=== PATIENT | female | born 1985 | race Caucasian/White ===

== ENCOUNTER 2019-09-04 15:39 | Inpatient (IN) | payer BC ==
[2019-09-04] MEDS ORDERED: Sodium Chloride 0.9% 10 ML Syringe FLUSH PRN (15:40)
[2019-09-04] MEDS ORDERED: Sodium Chloride 0.9% 2.5 ML Syringe FLUSH PRN (15:40)
[2019-09-04] MEDS ORDERED: Ondansetron 4 MG/2 ML SDV IVPUSH ONE (15:53)
[2019-09-04] MEDS ORDERED: Morphine 4 MG/ML Syringe IVPUSH ONE (15:53)
--- NOTE | 2019-09-04 15:53 | EDM.PDOC ---
ED HPI GENERAL MEDICAL PROBLEM - General Chief Complaint: Chest Pain Stated Complaint: CHEST AND BACK PAIN Time Seen by Provider: 09/04/19 15:50 Source of Information: Reports: Patient History Limitations: Reports: No Limitations - History of Present Illness INITIAL COMMENTS - FREE TEXT/NARRATIVE: HISTORY AND PHYSICAL: History of present illness: Patient is a 34-year-old female presents to the ED with complaint of abdmominal pain. She states she woke up this morning with a stomach ache. She states she tried eating but throughout the day the pain has gotten worse and now radiating to her back and her chest. She states she is has shortness of breath due to the pain in her left upper abdomen. She states she has been nauseous but denies vomiting or diarrhea. She does drink 6 white claws daily. She reports surgical history including gastric bypass,cholecystectomy, and abdominoplasty. Review of systems: As per history of present illness and below otherwise all systems reviewed and negative. Past medical history: As per history of present illness and as reviewed below otherwise noncontributory. Surgical history: As per history of present illness and as reviewed below otherwise noncontributory. Social history: No reported history of drug or alcohol abuse. Family history: As per history of present illness and as reviewed below otherwise noncontributory. Physical exam: General: Patient sitting comfortably in no acute distress and nontoxic appearing HEENT: Atraumatic, normocephalic, pupils reactive, negative for conjunctival pallor or scleral icterus, mucous membranes moist, throat clear, neck supple, nontender, trachea midline. No meningeal signs. Lungs: Clear to auscultation, breath sounds equal bilaterally, chest nontender. Heart: S1S2, regular, negative for clicks, rubs, or overt murmur. Abdomen: RUQ tenderness to palpation. Soft, nondistended. Negative for masses or hepatosplenomegaly. Negative for costovertebral tenderness. No rigidity, rebound, guarding. Pelvis: Stable nontender. Genitourinary: Deferred. Rectal: Deferred. Extremities: Atraumatic, negative for cords or calf pain. Neurovascular unremarkable. Neuro: Awake, alert, oriented. Cranial nerves II through XII unremarkable. Cerebellum unremarkable. Motor and sensory unremarkable throughout. Exam nonfocal. Notes: Diagnostics: CBC, CMP, troponin, lipase, EKG, chest x-ray, CT abdomen pelvis with contrast Therapeutics: 1L NS IV 4mg Morphine IV 4mg Zofran IV Prescriptions: Impression: Pancreatitis Plan: Discussed with Dr. Fuentes, patient admitted for observation for NPO, IV fluids for pancreatitis Definitive disposition and diagnosis as appropriate pending reevaluation and review of above. chest and abdomen Pain Score (Numeric/FACES): 9 - Related Data Allergies Allergy/AdvReac Type Severity Reaction Status Date / Time No Known Allergies Allergy Verified 09/04/19 15:44 Home Meds: Home Meds . [No Known Home Meds] 09/04/19 [History] ED ROS GENERAL - Review of Systems Review Of Systems: Comprehensive ROS is negative, except as noted in HPI. ED EXAM, GENERAL - Physical Exam Exam: See Below (see dictation) Course - Vital Signs Last Recorded V/S: Last Vital Signs Temp 97.5 F 09/04/19 15:44 Pulse 88 09/04/19 17:29 Resp 16 09/04/19 17:29 BP 147/89 H 09/04/19 17:29 Pulse Ox 95 09/04/19 17:29 - Orders/Labs/Meds Orders: Active Orders 24 hr Category Date Time Status Admission Status [Patient Status] [ADT] Stat ADT 09/04/19 18:01 Ordered Cardiac Monitoring [RC] . DIRECTED Care 09/04/19 15:40 Active EKG Documentation Completion [RC] STAT Care 09/04/19 15:40 Active Pulse Oximetry [RC] ASDIRECTED Care 09/04/19 15:40 Active Sodium Chloride 0.9% [Normal Saline] 1,000 ml Med 09/04/19 18:02 Ordered IV STAT Sodium Chloride 0.9% [Saline Flush] Med 09/04/19 15:40 Active 10 ml FLUSH ASDIRECTED PRN Sodium Chloride 0.9% [Saline Flush] Med 09/04/19 15:40 Active 2.5 ml FLUSH ASDIRECTED PRN Saline Lock Insert [OM.PC] Stat Oth 09/04/19 15:40 Ordered Medication Orders Sodium Chloride (Normal Saline) 1,000 mls @ 999 mls/hr IV STAT ONE Stop: 09/04/19 19:02 Last Admin: 09/04/19 18:18 Dose: 999 mls/hr Sodium Chloride (Saline Flush) 10 ml FLUSH ASDIRECTED PRN PRN Reason: Keep Vein Open Last Admin: 09/04/19 16:06 Dose: 10 ml Sodium Chloride (Saline Flush) 2.5 ml FLUSH ASDIRECTED PRN PRN Reason: Keep Vein Open Last Admin: 09/04/19 16:06 Dose: 2.5 ml Labs: Laboratory Tests 09/04/19 09/04/19 09/04/19 Range/Units 15:40 15:40 15:40 WBC 11.62 H (4.0-11.0) K/uL RBC 4.41 (4.30-5.90) M/uL Hgb 14.2 (12.0-16.0) g/dL Hct 42.4 (36.0-46.0) % MCV 96.1 (80.0-98.0) fL MCH 32.2 H (27.0-32.0) pg MCHC 33.5 (31.0-37.0) g/dL RDW Std Deviation 49.4 (28.0-62.0) fl RDW Coeff of Yousuf 14 (11.0-15.0) % Plt Count 187 (150-400) K/uL MPV 10.20 (7.40-12.00) fL Neut % (Auto) 84.4 H (48.0-80.0) % Lymph % (Auto) 8.4 L (16.0-40.0) % [place] % (Auto) 6.9 (0.0-15.0) % Eos % (Auto) 0.1 (0.0-7.0) % Baso % (Auto) 0.2 (0.0-1.5) % Neut # (Auto) 9.8 H (1.4-5.7) K/uL Lymph # (Auto) 1.0 (0.6-2.4) K/uL [place] # (Auto) 0.8 (0.0-0.8) K/uL Eos # (Auto) 0.0 (0.0-0.7) K/uL Baso # (Auto) 0.0 (0.0-0.1) K/uL Nucleated RBC % 0.0 /100WBC Nucleated RBCs # 0 K/uL INR 1.03 Sodium 139 (136-145) mmol/L Potassium 3.6 (3.5-5.1) mmol/L Chloride 99 (98-107) mmol/L Carbon Dioxide 22.8 (21.0-32.0) mmol/L BUN 6 L (7.0-18.0) mg/dL Creatinine 0.9 (0.6-1.0) mg/dL Est Cr Clr Drug Dosing 90.31 mL/min Estimated GFR (MDRD) > 60.0 ml/min Glucose 106 (74-106) mg/dL Calcium 9.1 (8.5-10.1) mg/dL Total Bilirubin 1.1 H (0.2-1.0) mg/dL AST 131 H (15-37) IU/L ALT 89 H (14-63) IU/L Alkaline Phosphatase 87 (46-116) U/L Troponin I < 0.050 (0.000-0.056) ng/mL Total Protein 7.9 (6.4-8.2) g/dL Albumin 4.2 (3.4-5.0) g/dL Globulin 3.7 (2.6-4.0) g/dL Albumin/Globulin Ratio 1.1 (0.9-1.6) Lipase (73-393) U/L 09/04/19 Range/Units 15:40 WBC (4.0-11.0) K/uL RBC (4.30-5.90) M/uL Hgb (12.0-16.0) g/dL Hct (36.0-46.0) % MCV (80.0-98.0) fL MCH (27.0-32.0) pg MCHC (31.0-37.0) g/dL RDW Std Deviation (28.0-62.0) fl RDW Coeff of Yousuf (11.0-15.0) % Plt Count (150-400) K/uL MPV (7.40-12.00) fL Neut % (Auto) (48.0-80.0) % Lymph % (Auto) (16.0-40.0) % [place] % (Auto) (0.0-15.0) % Eos % (Auto) (0.0-7.0) % Baso % (Auto) (0.0-1.5) % Neut # (Auto) (1.4-5.7) K/uL Lymph # (Auto) (0.6-2.4) K/uL [place] # (Auto) (0.0-0.8) K/uL Eos # (Auto) (0.0-0.7) K/uL Baso # (Auto) (0.0-0.1) K/uL Nucleated RBC % /100WBC Nucleated RBCs # K/uL INR Sodium (136-145) mmol/L Potassium (3.5-5.1) mmol/L Chloride (98-107) mmol/L Carbon Dioxide (21.0-32.0) mmol/L BUN (7.0-18.0) mg/dL Creatinine (0.6-1.0) mg/dL Est Cr Clr Drug Dosing mL/min Estimated GFR (MDRD) ml/min Glucose (74-106) mg/dL Calcium (8.5-10.1) mg/dL Total Bilirubin (0.2-1.0) mg/dL AST (15-37) IU/L ALT (14-63) IU/L Alkaline Phosphatase (46-116) U/L Troponin I (0.000-0.056) ng/mL Total Protein (6.4-8.2) g/dL Albumin (3.4-5.0) g/dL Globulin (2.6-4.0) g/dL Albumin/Globulin Ratio (0.9-1.6) Lipase 8781 H (73-393) U/L Meds: Medications Generic Name Dose Route Start Last Admin Trade Name Freq PRN Reason Stop Dose Admin Sodium Chloride 1,000 mls @ 999 mls/hr 09/04/19 18:02 09/04/19 18:18 Normal Saline IV 09/04/19 19:02 999 mls/hr STAT ONE Administration Sodium Chloride 10 ml 09/04/19 15:40 09/04/19 16:06 Saline Flush FLUSH 10 ml ASDIRECTED PRN Administration Keep Vein Open Sodium Chloride 2.5 ml 09/04/19 15:40 09/04/19 16:06 Saline Flush FLUSH 2.5 ml ASDIRECTED PRN Administration Keep Vein Open Discontinued Medications Generic Name Dose Route Start Last Admin Trade Name Freq PRN Reason Stop Dose Admin Sodium Chloride 1,000 mls @ 999 mls/hr 09/04/19 16:04 09/04/19 16:05 Normal Saline IV 09/04/19 17:04 999 mls/hr .Bolus ONE Administration Iopamidol 100 ml 09/04/19 17:01 09/04/19 17:02 Isovue-370 (76%) IVPUSH 09/04/19 17:02 100 ml ONETIME STA Administration Morphine Sulfate 4 mg 09/04/19 15:53 09/04/19 16:00 Morphine IVPUSH 09/04/19 15:54 4 mg ONETIME ONE Administration Morphine Sulfate 2 mg 09/04/19 17:23 09/04/19 17:28 Morphine IVPUSH 09/04/19 17:24 2 mg ONETIME ONE Administration Ondansetron HCl 4 mg 09/04/19 15:53 09/04/19 16:00 Zofran IVPUSH 09/04/19 15:54 4 mg ONETIME ONE Administration Departure - Departure Time of Disposition: 18:00 Disposition: Refer to Observation Condition: Good Clinical Impression: Pancreatitis Referrals: PCP,None [Primary Care Provider] - Forms: ED Department Discharge Sepsis Event Note - Focused Exam Vital Signs: Vital Signs Temp Pulse Resp BP Pulse Ox 09/04/19 17:29 88 16 147/89 H 95 09/04/19 15:44 97.5 F 111 H 20 147/89 H 100 Date Exam was Performed: 09/04/19 Time Exam was Performed: 18:21 - My Orders Last 24 Hours: My Active Orders 09/04/19 15:40 Cardiac Monitoring [RC] . DIRECTED EKG Documentation Completion [RC] STAT Pulse Oximetry [RC] ASDIRECTED Sodium Chloride 0.9% [Saline Flush] 10 ml FLUSH ASDIRECTED PRN Sodium Chloride 0.9% [Saline Flush] 2.5 ml FLUSH ASDIRECTED PRN Saline Lock Insert [OM.PC] Stat 09/04/19 18:01 Admission Status [Patient Status] [ADT] Stat 09/04/19 18:02 Sodium Chloride 0.9% [Normal Saline] 1,000 ml IV STAT - Assessment/Plan Last 24 Hours: My Active Orders 09/04/19 15:40 Cardiac Monitoring [RC] . DIRECTED EKG Documentation Completion [RC] STAT Pulse Oximetry [RC] ASDIRECTED Sodium Chloride 0.9% [Saline Flush] 10 ml FLUSH ASDIRECTED PRN Sodium Chloride 0.9% [Saline Flush] 2.5 ml FLUSH ASDIRECTED PRN Saline Lock Insert [OM.PC] Stat 09/04/19 18:01 Admission Status [Patient Status] [ADT] Stat 09/04/19 18:02 Sodium Chloride 0.9% [Normal Saline] 1,000 ml IV STAT
[2019-09-04] MEDS ORDERED: Sodium Chloride 0.9% 1,000 ML IV ONE ×2 (16:04→18:02)
[2019-09-04 16:30] LABS: BLOOD UREA NITROGEN,BUN 6 mg/dL (7.0-18.0); CARBON DIOXIDE,CO2 22.8 mmol/L (21.0-32.0); CHLORIDE,CL 99 mmol/L (98-107); GLUCOSE RANDOM 106 mg/dL (74-106); POTASSIUM,K 3.6 mmol/L (3.5-5.1); SODIUM,NA 139 mmol/L (136-145)
--- NOTE | 2019-09-04 16:32 | CR ---
Indication: Chest pain. Technique: A single AP portable view of the chest was obtained. Comparison: None Findings: The heart is normal in size. The lungs are clear. No infiltrate, pleural effusion, or pneumothorax is identified. Impression: No acute cardiopulmonary process Dictated by Shanda Workman MD @ Sep 04 2019 4:29PM Signed by Dr. Shanda Workman @ Sep 04 2019 4:29PM
[2019-09-04] MEDS ORDERED: Iopamidol 755 Mg/ML 100 ML Bottle IVPUSH STA (17:01)
[2019-09-04] MEDS ORDERED: Morphine 2 MG/ML Syringe IVPUSH ONE (17:23)
--- NOTE | 2019-09-04 17:41 | CT ---
INDICATION: Chest and abdomen pain. TECHNIQUE: CT abdomen and pelvis acquired with 100 cc Isovue 370 IV contrast. COMPARISON: None. FINDINGS: Lower chest: Unremarkable. Liver: Severe fatty infiltration present. No focal lesion. Gallbladder and bile ducts: Post cholecystectomy. No biliary dilatation. Pancreas: Unremarkable. No mass or inflammation. Spleen: Unremarkable. Normal in size. No masses. Adrenal glands: Unremarkable. No nodules. Kidneys: Single small nonobstructive stone in the right kidney. No masses and no hydronephrosis. Otherwise unremarkable kidneys. GI tract: Postoperative changes are present from recent gastric bypass surgery. GI tract is otherwise within normal limits in caliber and appearance. No sign of obstruction. Normal appendix. Vasculature: Unremarkable. Mesenteric arteries are patent. Lymph nodes: No lymphadenopathy. Omentum/Peritoneum/Abdominal Wall: Mild ascites and mesenteric edema predominantly in the upper quadrants. No defined fluid collection to suggest abscess or hematoma. No free air. Pelvis: Unremarkable. Bones: Unremarkable for age. IMPRESSION: 1. Edema and free fluid is present, predominantly in the upper quadrants. No other postoperative complication evident. Specifically no sign of abscess, hematoma, or free air. 2. GI tract is normal in caliber. 3. Severe hepatic steatosis. 4. No other findings to explain pain. Please note that all CT scans at this facility use dose modulation, iterative reconstruction, and/or weight-based dosing when appropriate to reduce radiation dose to as low as reasonably achievable. Dictated by Dale Dinero MD @ Sep 04 2019 5:28PM Signed by Dr. Dale Dinero @ Sep 04 2019 5:39PM
[2019-09-04] MEDS ORDERED: Morphine 2 MG/ML Syringe IVPUSH PRN (18:32)
[2019-09-04] MEDS ORDERED: Sodium Chloride 0.9% 500 ML IV ONE (18:39)
[2019-09-04] MEDS ORDERED: HYDROmorphone 1 MG/ML Syringe IVPUSH ONE (18:45)
[2019-09-04] MEDS ORDERED: Sodium Chloride 0.9% 1,000 ML IV SCH (18:45)
--- NOTE | 2019-09-04 18:52 | PCM.HP.2 ---
H&P History of Present Illness - General Date of Service: 09/04/19 Admit Problem/Dx: Admission Diagnosis/Problem Admission Diagnosis/Problem Pancreatitis Source of Information: Patient History Limitations: Reports: No Limitations - History of Present Illness Initial Comments - Free Text/Narative: 34-year-old female presents with abdominal pain and nausea since this morning. She reports a PMH of PTSD, cholecystectomy and gastric bypass. The pain is located in the epigastric region of her abdomen, described as being burning in nature and aggravated by eating. She reports it occasionally radiates to her back and chest. She has also had nausea but not vomiting. She reports drinking 6 -12 white claws daily and has been doing this for approximately one year. Denies fevers, chills, blurry vision, sore throat, shortness of breath, chest pain, diarrhea, blood in stool or blood in urine, numbness or tingling in extremities. Smokes 2-3 cigarettes per day. Denies illicit drug use. In the ER, WBC count 11.6, AST 131, ALT 89 and lipase 8781. CXR was negative. CT abdomen showed edema and free fluid in upper quadrants. Patient received IV NS 2L bolus and morphine for pain. chest and abdomen Pain Score (Numeric/FACES): 9 - Related Data Allergies/Adverse Reactions: Allergies Allergy/AdvReac Type Severity Reaction Status Date / Time No Known Allergies Allergy Verified 09/04/19 15:44 Home Medications: Home Meds . [No Known Home Meds] 09/04/19 [History] Past Medical History - Infectious Disease History Infectious Disease History: Reports: None - Past Surgical History GI Surgical History: Reports: Other (See Below) Other GI Surgeries/Procedures: Gastric bipass Social & Family History - Family History Family Medical History: Noncontributory - Tobacco Use Smoking Status *Q: Current Every Day Smoker Years of Tobacco use: 10 Packs/Tins Daily: 0.1 - Caffeine Use Caffeine Use: Reports: Coffee - Recreational Drug Use Recreational Drug Use: No H&P Review of Systems - Review of Systems: Review Of Systems: Comprehensive ROS is negative, except as noted in HPI. Exam - Exam Exam: See Below - Vital Signs Vital Signs: Last Vital Signs Temp 97.5 F 09/04/19 15:44 Pulse 88 09/04/19 17:29 Resp 16 09/04/19 17:29 BP 147/89 H 09/04/19 17:29 Pulse Ox 95 09/04/19 17:29 Weight: 175 lb - Exam General: Alert, Oriented, Cooperative, Mild Distress HEENT: Conjunctiva Clear, EOMI, Hearing Intact, Mucosa Moist & [place], Posterior Pharynx Clear Neck: Supple, Trachea Midline Lungs: Clear to Auscultation, Normal Respiratory Effort Cardiovascular: Regular Rate, Regular Rhythm GI/Abdominal Exam: Normal Bowel Sounds, Soft, No Distention, Other (epigastric ttp. No CVA tenderness bilatreally. No flank tenderness bilaterally.) Extremities: Normal Inspection, No Pedal Edema Peripheral Pulses: 2+: Radial (L), Radial (R) Skin: Warm, Dry, Intact Neurological: Cranial Nerves Intact, Strength Equal Bilateral, Normal Speech, Normal Tone Neuro Extensive - Mental Status: Alert, Oriented x3, Normal Mood/Affect - Patient Data Lab Results Last 24 hrs: Laboratory Results - last 24 hr 09/04/19 09/04/19 09/04/19 Range/Units 15:40 15:40 15:40 WBC 11.62 H (4.0-11.0) K/uL RBC 4.41 (4.30-5.90) M/uL Hgb 14.2 (12.0-16.0) g/dL Hct 42.4 (36.0-46.0) % MCV 96.1 (80.0-98.0) fL MCH 32.2 H (27.0-32.0) pg MCHC 33.5 (31.0-37.0) g/dL RDW Std Deviation 49.4 (28.0-62.0) fl RDW Coeff of Yousuf 14 (11.0-15.0) % Plt Count 187 (150-400) K/uL MPV 10.20 (7.40-12.00) fL Neut % (Auto) 84.4 H (48.0-80.0) % Lymph % (Auto) 8.4 L (16.0-40.0) % [place] % (Auto) 6.9 (0.0-15.0) % Eos % (Auto) 0.1 (0.0-7.0) % Baso % (Auto) 0.2 (0.0-1.5) % Neut # (Auto) 9.8 H (1.4-5.7) K/uL Lymph # (Auto) 1.0 (0.6-2.4) K/uL [place] # (Auto) 0.8 (0.0-0.8) K/uL Eos # (Auto) 0.0 (0.0-0.7) K/uL Baso # (Auto) 0.0 (0.0-0.1) K/uL Nucleated RBC % 0.0 /100WBC Nucleated RBCs # 0 K/uL INR 1.03 Sodium 139 (136-145) mmol/L Potassium 3.6 (3.5-5.1) mmol/L Chloride 99 (98-107) mmol/L Carbon Dioxide 22.8 (21.0-32.0) mmol/L BUN 6 L (7.0-18.0) mg/dL Creatinine 0.9 (0.6-1.0) mg/dL Est Cr Clr Drug Dosing 90.31 mL/min Estimated GFR (MDRD) > 60.0 ml/min Glucose 106 (74-106) mg/dL Calcium 9.1 (8.5-10.1) mg/dL Total Bilirubin 1.1 H (0.2-1.0) mg/dL AST 131 H (15-37) IU/L ALT 89 H (14-63) IU/L Alkaline Phosphatase 87 (46-116) U/L Troponin I < 0.050 (0.000-0.056) ng/mL Total Protein 7.9 (6.4-8.2) g/dL Albumin 4.2 (3.4-5.0) g/dL Globulin 3.7 (2.6-4.0) g/dL Albumin/Globulin Ratio 1.1 (0.9-1.6) Lipase (73-393) U/L 09/04/19 Range/Units 15:40 WBC (4.0-11.0) K/uL RBC (4.30-5.90) M/uL Hgb (12.0-16.0) g/dL Hct (36.0-46.0) % MCV (80.0-98.0) fL MCH (27.0-32.0) pg MCHC (31.0-37.0) g/dL RDW Std Deviation (28.0-62.0) fl RDW Coeff of Yousuf (11.0-15.0) % Plt Count (150-400) K/uL MPV (7.40-12.00) fL Neut % (Auto) (48.0-80.0) % Lymph % (Auto) (16.0-40.0) % [place] % (Auto) (0.0-15.0) % Eos % (Auto) (0.0-7.0) % Baso % (Auto) (0.0-1.5) % Neut # (Auto) (1.4-5.7) K/uL Lymph # (Auto) (0.6-2.4) K/uL [place] # (Auto) (0.0-0.8) K/uL Eos # (Auto) (0.0-0.7) K/uL Baso # (Auto) (0.0-0.1) K/uL Nucleated RBC % /100WBC Nucleated RBCs # K/uL INR Sodium (136-145) mmol/L Potassium (3.5-5.1) mmol/L Chloride (98-107) mmol/L Carbon Dioxide (21.0-32.0) mmol/L BUN (7.0-18.0) mg/dL Creatinine (0.6-1.0) mg/dL Est Cr Clr Drug Dosing mL/min Estimated GFR (MDRD) ml/min Glucose (74-106) mg/dL Calcium (8.5-10.1) mg/dL Total Bilirubin (0.2-1.0) mg/dL AST (15-37) IU/L ALT (14-63) IU/L Alkaline Phosphatase (46-116) U/L Troponin I (0.000-0.056) ng/mL Total Protein (6.4-8.2) g/dL Albumin (3.4-5.0) g/dL Globulin (2.6-4.0) g/dL Albumin/Globulin Ratio (0.9-1.6) Lipase 8781 H (73-393) U/L Result Diagrams: 09/04/19 15:40 09/04/19 15:40 Sepsis Event Note - Evaluation Sepsis Screening Result: No Definite Risk - Focused Exam Vital Signs: Vital Signs Temp Pulse Resp BP Pulse Ox 09/04/19 17:29 88 16 147/89 H 95 09/04/19 15:44 97.5 F 111 H 20 147/89 H 100 Date Exam was Performed: 09/04/19 Time Exam was Performed: 19:06 Problem List Initiated/Reviewed/Updated: Yes Orders Last 24hrs: Active Orders 24 hr Category Date Time Status Admission Status [Patient Status] [ADT] Stat ADT 09/04/19 18:01 Active CIWAA Assessment [RC] Q4H Care 09/04/19 18:41 Active Cardiac Monitoring [RC] . DIRECTED Care 09/04/19 15:40 Active EKG Documentation Completion [RC] STAT Care 09/04/19 15:40 Active Oxygen Therapy [RC] PRN Care 09/04/19 18:32 Active Pulse Oximetry [RC] ASDIRECTED Care 09/04/19 15:40 Active Up ad Madhuri [RC] ASDIRECTED Care 09/04/19 18:32 Active VTE/DVT Education [RC] PER UNIT ROUTINE Care 09/04/19 18:32 Active Vital Signs [RC] Q4H Care 09/04/19 18:32 Active Nothing per Oral Now Diet [DIET] Diet 09/04/19 Dinner Active CBC WITH AUTO DIFF [HEME] AM Lab 09/05/19 05:11 Ordered COMPREHENSIVE METABOLIC PN,CMP [CHEM] AM Lab 09/05/19 05:11 Ordered LACTIC ACID,WHOLE BLOOD [BG] Routine Lab 09/04/19 18:40 Ordered UA RFX WINNIE AND CULT IF INDIC [URIN] Stat Lab 09/04/19 18:34 Ordered Enoxaparin [Lovenox] Med 09/04/19 21:00 Active 40 mg SUBCUT Q24H LORazepam [Ativan] Med 09/04/19 18:41 Active See Protocol PO Q4H PRN Morphine Med 09/04/19 18:32 Active 2 mg IVPUSH Q2H PRN Sodium Chloride 0.9% [Normal Saline] 1,000 ml Med 09/04/19 18:02 Active IV STAT Sodium Chloride 0.9% [Normal Saline] 1,000 ml Med 09/04/19 18:45 Active IV STAT Sodium Chloride 0.9% [Normal Saline] 500 ml Med 09/04/19 18:39 Active IV STAT Sodium Chloride 0.9% [Saline Flush] Med 09/04/19 15:40 Active 10 ml FLUSH ASDIRECTED PRN Sodium Chloride 0.9% [Saline Flush] Med 09/04/19 15:40 Active 2.5 ml FLUSH ASDIRECTED PRN Saline Lock Insert [OM.PC] Stat Oth 09/04/19 15:40 Ordered Resuscitation Status Routine Resus Stat 09/04/19 18:32 Ordered Medication Orders Enoxaparin Sodium (Lovenox) 40 mg SUBCUT Q24H NEVAEH Sodium Chloride (Normal Saline) 1,000 mls @ 999 mls/hr IV STAT ONE Stop: 09/04/19 19:02 Last Admin: 09/04/19 18:18 Dose: 999 mls/hr Sodium Chloride (Normal Saline) 1,000 mls @ 125 mls/hr IV STAT NEVAEH Sodium Chloride (Normal Saline) 500 mls @ 999 mls/hr IV STAT ONE Stop: 09/04/19 19:09 Lorazepam (Ativan) 0 mg PO Q4H PRN; Protocol PRN Reason: Agitation Morphine Sulfate (Morphine) 2 mg IVPUSH Q2H PRN PRN Reason: Pain (severe 7-10) Stop: 09/05/19 18:33 Sodium Chloride (Saline Flush) 10 ml FLUSH ASDIRECTED PRN PRN Reason: Keep Vein Open Last Admin: 09/04/19 16:06 Dose: 10 ml Sodium Chloride (Saline Flush) 2.5 ml FLUSH ASDIRECTED PRN PRN Reason: Keep Vein Open Last Admin: 09/04/19 16:06 Dose: 2.5 ml Assessment/Plan Comment:: Assessment and Plan: 1. Acute pancreatitis: Will start IV NS maintenance fluids 200 cc/hr after fluid bolus complete. Morphine for pain control. NPO for now. WBC count 11. 2. Alcohol abuse: [place] assessments q4h. Ativan on board per [facility] protocol. Will order thiamine and folic acid. 3. Transaminitis secondary to #2. 4. VTE prophylaxis: lovenox 40 mg subcut daily.
[2019-09-04] MEDS: Folic Acid 50 MG/10 ML MDV SUBCUT SCH (20:05)
[2019-09-04] MEDS: Thiamine 100 MG in Sodium Chloride 0.9% 100 ML IV SCH (20:21)
[2019-09-04] MEDS: Enoxaparin 40 MG/0.4 ML Syringe SUBCUT SCH (20:21)
[2019-09-04] MEDS: LORazepam 1 MG Tab PO PRN (21:14)
[2019-09-04] MEDS: HYDROmorphone 1 MG/ML Syringe IVPUSH PRN (22:26)
[2019-09-04] MEDS: Sodium Chloride 0.9% 1,000 ML IV SCH (23:58)
[2019-09-05] MEDS: LORazepam 1 MG Tab PO PRN ×3 (01:36→12:29)
[2019-09-05] MEDS: HYDROmorphone 1 MG/ML Syringe IVPUSH PRN ×6 (01:37→22:15)
[2019-09-05] MEDS: Sodium Chloride 0.9% 1,000 ML IV SCH ×4 (05:08→18:56)
[2019-09-05 06:43] LABS: BLOOD UREA NITROGEN,BUN 5 mg/dL (7.0-18.0); CARBON DIOXIDE,CO2 25.6 mmol/L (21.0-32.0); CHLORIDE,CL 105 mmol/L (98-107); GLUCOSE RANDOM 70 mg/dL (74-106); POTASSIUM,K 4.3 mmol/L (3.5-5.1); SODIUM,NA 141 mmol/L (136-145)
[2019-09-05] MEDS: Folic Acid 50 MG/10 ML MDV SUBCUT SCH (08:08)
[2019-09-05] MEDS: Dextrose 5%-0.9% NaCl 1,000 ML IV SCH ×2 (08:18→22:22)
--- NOTE | 2019-09-05 08:42 | PCM.PN ---
- General Info Date of Service: 09/05/19 Subjective Update: Reports abdominal pain mildly improved. Still complains of nausea. No fevers, chills or shortness of breath. - Patient Data Vitals - Most Recent: Last Vital Signs Temp 99.1 F 09/05/19 07:51 Pulse 122 H 09/05/19 07:51 Resp 15 09/05/19 07:51 BP 130/77 09/05/19 07:51 Pulse Ox 97 09/05/19 07:51 Weight - Most Recent: 175 lb I&O - Last 24 Hours: Intake & Output 09/04/19 09/05/19 09/05/19 22:59 06:59 14:59 Intake Total 1440 Output Total 450 Balance 990 Lab Results Last 24 Hours: Laboratory Results - last 24 hr 09/04/19 09/04/19 09/04/19 Range/Units 15:40 15:40 15:40 WBC 11.62 H (4.0-11.0) K/uL RBC 4.41 (4.30-5.90) M/uL Hgb 14.2 (12.0-16.0) g/dL Hct 42.4 (36.0-46.0) % MCV 96.1 (80.0-98.0) fL MCH 32.2 H (27.0-32.0) pg MCHC 33.5 (31.0-37.0) g/dL RDW Std Deviation 49.4 (28.0-62.0) fl RDW Coeff of Yousuf 14 (11.0-15.0) % Plt Count 187 (150-400) K/uL MPV 10.20 (7.40-12.00) fL Neut % (Auto) 84.4 H (48.0-80.0) % Lymph % (Auto) 8.4 L (16.0-40.0) % Dubois % (Auto) 6.9 (0.0-15.0) % Eos % (Auto) 0.1 (0.0-7.0) % Baso % (Auto) 0.2 (0.0-1.5) % Neut # (Auto) 9.8 H (1.4-5.7) K/uL Lymph # (Auto) 1.0 (0.6-2.4) K/uL Dubois # (Auto) 0.8 (0.0-0.8) K/uL Eos # (Auto) 0.0 (0.0-0.7) K/uL Baso # (Auto) 0.0 (0.0-0.1) K/uL Nucleated RBC % 0.0 /100WBC Nucleated RBCs # 0 K/uL INR 1.03 Lactate (0.20-2.00) mmol/L Sodium 139 (136-145) mmol/L Potassium 3.6 (3.5-5.1) mmol/L Chloride 99 (98-107) mmol/L Carbon Dioxide 22.8 (21.0-32.0) mmol/L BUN 6 L (7.0-18.0) mg/dL Creatinine 0.9 (0.6-1.0) mg/dL Est Cr Clr Drug Dosing 90.31 mL/min Estimated GFR (MDRD) > 60.0 ml/min Glucose 106 (74-106) mg/dL Calcium 9.1 (8.5-10.1) mg/dL Total Bilirubin 1.1 H (0.2-1.0) mg/dL AST 131 H (15-37) IU/L ALT 89 H (14-63) IU/L Alkaline Phosphatase 87 (46-116) U/L Troponin I < 0.050 (0.000-0.056) ng/mL Total Protein 7.9 (6.4-8.2) g/dL Albumin 4.2 (3.4-5.0) g/dL Globulin 3.7 (2.6-4.0) g/dL Albumin/Globulin Ratio 1.1 (0.9-1.6) Lipase (73-393) U/L 09/04/19 09/04/19 09/05/19 Range/Units 15:40 19:06 06:07 WBC 7.13 (4.0-11.0) K/uL RBC 3.61 L (4.30-5.90) M/uL Hgb 11.4 L (12.0-16.0) g/dL Hct 35.9 L (36.0-46.0) % MCV 99.4 H (80.0-98.0) fL MCH 31.6 (27.0-32.0) pg MCHC 31.8 (31.0-37.0) g/dL RDW Std Deviation 51.0 (28.0-62.0) fl RDW Coeff of Yousuf 14 (11.0-15.0) % Plt Count 128 L (150-400) K/uL MPV 10.00 (7.40-12.00) fL Neut % (Auto) 83.4 H (48.0-80.0) % Lymph % (Auto) 7.9 L (16.0-40.0) % Dubois % (Auto) 7.9 (0.0-15.0) % Eos % (Auto) 0.7 (0.0-7.0) % Baso % (Auto) 0.1 (0.0-1.5) % Neut # (Auto) 6.0 H (1.4-5.7) K/uL Lymph # (Auto) 0.6 (0.6-2.4) K/uL Dubois # (Auto) 0.6 (0.0-0.8) K/uL Eos # (Auto) 0.1 (0.0-0.7) K/uL Baso # (Auto) 0.0 (0.0-0.1) K/uL Nucleated RBC % 0.0 /100WBC Nucleated RBCs # 0 K/uL INR Lactate 1.5 (0.20-2.00) mmol/L Sodium (136-145) mmol/L Potassium (3.5-5.1) mmol/L Chloride (98-107) mmol/L Carbon Dioxide (21.0-32.0) mmol/L BUN (7.0-18.0) mg/dL Creatinine (0.6-1.0) mg/dL Est Cr Clr Drug Dosing mL/min Estimated GFR (MDRD) ml/min Glucose (74-106) mg/dL Calcium (8.5-10.1) mg/dL Total Bilirubin (0.2-1.0) mg/dL AST (15-37) IU/L ALT (14-63) IU/L Alkaline Phosphatase (46-116) U/L Troponin I (0.000-0.056) ng/mL Total Protein (6.4-8.2) g/dL Albumin (3.4-5.0) g/dL Globulin (2.6-4.0) g/dL Albumin/Globulin Ratio (0.9-1.6) Lipase 8781 H (73-393) U/L 09/05/19 Range/Units 06:07 WBC (4.0-11.0) K/uL RBC (4.30-5.90) M/uL Hgb (12.0-16.0) g/dL Hct (36.0-46.0) % MCV (80.0-98.0) fL MCH (27.0-32.0) pg MCHC (31.0-37.0) g/dL RDW Std Deviation (28.0-62.0) fl RDW Coeff of Yousuf (11.0-15.0) % Plt Count (150-400) K/uL MPV (7.40-12.00) fL Neut % (Auto) (48.0-80.0) % Lymph % (Auto) (16.0-40.0) % Dubois % (Auto) (0.0-15.0) % Eos % (Auto) (0.0-7.0) % Baso % (Auto) (0.0-1.5) % Neut # (Auto) (1.4-5.7) K/uL Lymph # (Auto) (0.6-2.4) K/uL Dubois # (Auto) (0.0-0.8) K/uL Eos # (Auto) (0.0-0.7) K/uL Baso # (Auto) (0.0-0.1) K/uL Nucleated RBC % /100WBC Nucleated RBCs # K/uL INR Lactate (0.20-2.00) mmol/L Sodium 141 (136-145) mmol/L Potassium 4.3 (3.5-5.1) mmol/L Chloride 105 (98-107) mmol/L Carbon Dioxide 25.6 (21.0-32.0) mmol/L BUN 5 L (7.0-18.0) mg/dL Creatinine 0.6 (0.6-1.0) mg/dL Est Cr Clr Drug Dosing 135.46 mL/min Estimated GFR (MDRD) > 60.0 ml/min Glucose 70 L (74-106) mg/dL Calcium 7.4 L (8.5-10.1) mg/dL Total Bilirubin 1.0 (0.2-1.0) mg/dL AST 67 H (15-37) IU/L ALT 61 (14-63) IU/L Alkaline Phosphatase 61 (46-116) U/L Troponin I (0.000-0.056) ng/mL Total Protein 6.0 L (6.4-8.2) g/dL Albumin 3.1 L (3.4-5.0) g/dL Globulin 2.9 (2.6-4.0) g/dL Albumin/Globulin Ratio 1.1 (0.9-1.6) Lipase (73-393) U/L Med Orders - Current: Current Medications Enoxaparin Sodium (Lovenox) 40 mg SUBCUT Q24H NEVAEH Last Admin: 09/04/19 20:21 Dose: 40 mg Folic Acid (Folic Acid) 1 mg SUBCUT DAILY NEVAEH Last Admin: 09/05/19 08:08 Dose: 1 mg Hydromorphone HCl (Dilaudid) 1 mg IVPUSH Q3H PRN PRN Reason: Pain Last Admin: 09/05/19 07:49 Dose: 1 mg Thiamine HCl 100 mg/ Sodium (Chloride) 101 mls @ 202 mls/hr IV DAILY NEVAEH Last Admin: 09/04/19 20:21 Dose: 202 mls/hr Sodium Chloride (Normal Saline) 1,000 mls @ 150 mls/hr IV STAT NEVAEH Last Admin: 09/05/19 08:17 Dose: 150 mls/hr Dextrose/Sodium Chloride (Dextrose 5%-Normal Saline) 1,000 mls @ 50 mls/hr IV ASDIRECTED NEVAEH Last Admin: 09/05/19 08:18 Dose: 50 mls/hr Lorazepam (Ativan) 0 mg PO Q4H PRN; Protocol PRN Reason: Agitation Last Admin: 09/05/19 08:07 Dose: 1 mg Sodium Chloride (Saline Flush) 10 ml FLUSH ASDIRECTED PRN PRN Reason: Keep Vein Open Last Admin: 09/04/19 16:06 Dose: 10 ml Sodium Chloride (Saline Flush) 2.5 ml FLUSH ASDIRECTED PRN PRN Reason: Keep Vein Open Last Admin: 09/04/19 16:06 Dose: 2.5 ml Discontinued Medications Hydromorphone HCl (Dilaudid) 0.5 mg IVPUSH ONETIME ONE Stop: 09/04/19 18:46 Last Admin: 09/04/19 18:50 Dose: 0.5 mg Sodium Chloride (Normal Saline) 1,000 mls @ 999 mls/hr IV .Bolus ONE Stop: 09/04/19 17:04 Last Admin: 09/04/19 16:05 Dose: 999 mls/hr Sodium Chloride (Normal Saline) 1,000 mls @ 999 mls/hr IV STAT ONE Stop: 09/04/19 19:02 Last Admin: 09/04/19 18:18 Dose: 999 mls/hr Sodium Chloride (Normal Saline) 1,000 mls @ 125 mls/hr IV STAT NEVAEH Sodium Chloride (Normal Saline) 1,000 mls @ 200 mls/hr IV STAT NEVAEH Last Admin: 09/05/19 05:08 Dose: 200 mls/hr Sodium Chloride (Normal Saline) 500 mls @ 999 mls/hr IV STAT ONE Stop: 09/04/19 19:09 Last Admin: 09/04/19 20:04 Dose: 999 mls/hr Iopamidol (Isovue-370 (76%)) 100 ml IVPUSH ONETIME STA Stop: 09/04/19 17:02 Last Admin: 09/04/19 17:02 Dose: 100 ml Morphine Sulfate (Morphine) 4 mg IVPUSH ONETIME ONE Stop: 09/04/19 15:54 Last Admin: 09/04/19 16:00 Dose: 4 mg Morphine Sulfate (Morphine) 2 mg IVPUSH ONETIME ONE Stop: 09/04/19 17:24 Last Admin: 09/04/19 17:28 Dose: 2 mg Morphine Sulfate (Morphine) 2 mg IVPUSH Q2H PRN PRN Reason: Pain (severe 7-10) Stop: 09/05/19 18:33 Last Admin: 09/04/19 20:08 Dose: 2 mg Ondansetron HCl (Zofran) 4 mg IVPUSH ONETIME ONE Stop: 09/04/19 15:54 Last Admin: 09/04/19 16:00 Dose: 4 mg - Exam General: Alert, Oriented, Cooperative, Mild Distress Lungs: Clear to Auscultation, Normal Respiratory Effort Cardiovascular: Regular Rate, Regular Rhythm GI/Abdominal Exam: Normal Bowel Sounds, Soft, No Distention, Other (mild epigastric ttp) Extremities: Normal Inspection, No Pedal Edema Sepsis Event Note - Evaluation Sepsis Screening Result: No Definite Risk - Focused Exam Vital Signs: Vital Signs Temp Pulse Resp BP Pulse Ox 09/05/19 07:51 99.1 F 122 H 15 130/77 97 09/05/19 04:00 97.8 F 106 H 15 133/83 96 09/05/19 00:00 97.7 F 109 H 15 103/56 L 96 Date Exam was Performed: 09/05/19 Time Exam was Performed: 10:06 - Problem List Review Problem List Initiated/Reviewed/Updated: Yes - My Orders Last 24 Hours: My Active Orders 09/04/19 18:32 Oxygen Therapy [RC] PRN Up ad Madhuri [RC] ASDIRECTED VTE/DVT Education [RC] PER UNIT ROUTINE Vital Signs [RC] Q4H Resuscitation Status Routine 09/04/19 18:34 UA RFX WINNIE AND CULT IF INDIC [URIN] Stat 09/04/19 18:41 CIWAA Assessment [RC] Q4H LORazepam [Ativan] See Protocol PO Q4H PRN 09/04/19 19:30 Folic Acid 1 mg SUBCUT DAILY Thiamine [Vitamin B-1] 100 mg Sodium Chloride 0.9% [Normal Saline] 100 ml IV DAILY 09/04/19 21:00 Enoxaparin [Lovenox] 40 mg SUBCUT Q24H 09/04/19 Dinner Nothing per Oral Now Diet [DIET] 09/05/19 07:51 Sodium Chloride 0.9% [Normal Saline] 1,000 ml IV STAT 09/05/19 07:52 Accu Check [Blood Glucose Check, Bedside] [RC] Q2H 09/05/19 08:00 Dextrose 5%-0.9% NaCl [Dextrose 5%-Normal Saline] 1,000 ml IV ASDIRECTED - Plan Plan:: Assessment and Plan: 1. Acute pancreatitis: Continue IV NS maintenance fluids 150 cc/hr with D5 added b/c of hypoglycemia. Accucheks q2h. Dilaudid for pain control. NPO for now. Will order RUQ ultrasound. 2. Alcohol abuse: CISC assessments q4h. Ativan on board per [facility] protocol. 3. Transaminitis secondary to #2. 4. VTE prophylaxis: lovenox 40 mg subcut daily.
[2019-09-05] MEDS: Thiamine 100 MG in Sodium Chloride 0.9% 100 ML IV SCH (08:46)
[2019-09-05] MEDS ORDERED: 50% Dextrose in Water 50 ML Syringe IVPUSH ONE ×2 (09:32→13:26)
[2019-09-05] MEDS ORDERED: Calcium Gluconate 10% 1 GM/10 ML SDV IVPUSH ONE (09:32)
--- NOTE | 2019-09-05 15:11 | US ---
EXAM DATE: 09/05/19 PATIENT'S AGE: 34 Limited abdominal ultrasound: Multiple real-time images of the upper right abdomen were obtained. Pancreatic tail not seen. Other portions of pancreas appear within normal limits. Prior cholecystectomy is noted. Common bile duct dilated 8 mm which likely is residual from prior cholecystectomy. Both kidneys are imaged and show no hydronephrosis or mass. Right kidney has a length of 11.8 cm. Left kidney has a length of 12.9 cm. Liver is diffusely echogenic compatible with fatty infiltration. Impression: 1. Echogenic liver compatible with fatty infiltration. 2. Slightly dilated common bile duct likely residual from prior cholecystectomy. 3. No additional abnormality is seen on right upper quadrant abdominal ultrasound. Diagnostic code #2 This report was dictated in [place] [employer] Time Report Signed by Proxy. TRI
[2019-09-05] MEDS ORDERED: Melatonin 3 MG Tab PO PRN (19:24)
[2019-09-05] MEDS: Enoxaparin 40 MG/0.4 ML Syringe SUBCUT SCH (20:48)
[2019-09-06] MEDS: HYDROmorphone 1 MG/ML Syringe IVPUSH PRN (03:10)
[2019-09-06] MEDS: Sodium Chloride 0.9% 1,000 ML IV SCH ×3 (05:11→17:59)
[2019-09-06 07:00] LABS: BLOOD UREA NITROGEN,BUN 2 mg/dL (7.0-18.0); CARBON DIOXIDE,CO2 25.3 mmol/L (21.0-32.0); CHLORIDE,CL 104 mmol/L (98-107); GLUCOSE RANDOM 79 mg/dL (74-106); POTASSIUM,K 3.1 mmol/L (3.5-5.1); SODIUM,NA 139 mmol/L (136-145)
[2019-09-06] MEDS ORDERED: Potassium Chloride 40 MEQ in Sodium Chloride 0.9% 500 ML IV SCH (08:00)
--- NOTE | 2019-09-06 08:29 | PCM.PN ---
- General Info Date of Service: 09/06/19 Subjective Update: Reports pain overall has improved. Denies feeling hungry. Did not sleep well last night because of "bad dreams." - Patient Data Vitals - Most Recent: Last Vital Signs Temp 97.7 F 09/06/19 07:40 Pulse 96 09/06/19 07:40 Resp 18 09/06/19 07:40 BP 138/71 09/06/19 07:40 Pulse Ox 98 09/06/19 07:40 Weight - Most Recent: 175 lb I&O - Last 24 Hours: Intake & Output 09/05/19 09/06/19 09/06/19 22:59 06:59 14:59 Intake Total 0 2101 Output Total 800 1100 Balance -800 1001 Lab Results Last 24 Hours: Laboratory Results - last 24 hr 09/05/19 09/05/19 09/05/19 Range/Units 06:07 09:30 10:20 WBC (4.0-11.0) K/uL RBC (4.30-5.90) M/uL Hgb (12.0-16.0) g/dL Hct (36.0-46.0) % MCV (80.0-98.0) fL MCH (27.0-32.0) pg MCHC (31.0-37.0) g/dL RDW Std Deviation (28.0-62.0) fl RDW Coeff of Yousuf (11.0-15.0) % Plt Count (150-400) K/uL MPV (7.40-12.00) fL Neut % (Auto) (48.0-80.0) % Lymph % (Auto) (16.0-40.0) % [place] % (Auto) (0.0-15.0) % Eos % (Auto) (0.0-7.0) % Baso % (Auto) (0.0-1.5) % Neut # (Auto) (1.4-5.7) K/uL Lymph # (Auto) (0.6-2.4) K/uL [place] # (Auto) (0.0-0.8) K/uL Eos # (Auto) (0.0-0.7) K/uL Baso # (Auto) (0.0-0.1) K/uL Nucleated RBC % /100WBC Nucleated RBCs # K/uL Sodium (136-145) mmol/L Potassium (3.5-5.1) mmol/L Chloride (98-107) mmol/L Carbon Dioxide (21.0-32.0) mmol/L BUN (7.0-18.0) mg/dL Creatinine (0.6-1.0) mg/dL Est Cr Clr Drug Dosing mL/min Estimated GFR (MDRD) ml/min Glucose (74-106) mg/dL POC Glucose 61 128 H (60-110) mg/dL Calcium (8.5-10.1) mg/dL Total Bilirubin (0.2-1.0) mg/dL AST (15-37) IU/L ALT (14-63) IU/L Alkaline Phosphatase (46-116) U/L Total Protein (6.4-8.2) g/dL Albumin (3.4-5.0) g/dL Globulin (2.6-4.0) g/dL Albumin/Globulin Ratio (0.9-1.6) Triglycerides 88 (0-200) mg/dL Cholesterol 129 (50-200) mg/dL LDL Cholesterol, Calc 44 L (60-180) mg/dL VLDL Cholesterol 17 (5-55) mg/dL HDL Cholesterol 67 H (40-60) mg/dL Cholesterol/HDL Ratio 1.9 L (3.3-6.0) Urine Color Urine Appearance Urine pH (5.0-8.0) Ur Specific [place] (1.001-1.035) Urine Protein (NEGATIVE) mg/dL Urine Glucose (UA) (NEGATIVE) mg/dL Urine Ketones (NEGATIVE) mg/dL Urine Occult Blood (NEGATIVE) Urine Nitrite (NEGATIVE) Urine Bilirubin (NEGATIVE) Urine Ictotest Urine Urobilinogen (<2.0) EU/dL Ur Leukocyte Esterase (NEGATIVE) Urine RBC (0-2/HPF) Urine WBC (0-5/HPF) Ur Epithelial Cells (NONE-FEW) Urine Bacteria (NEGATIVE) 09/05/19 09/05/19 09/05/19 Range/Units 11:59 14:15 15:44 WBC (4.0-11.0) K/uL RBC (4.30-5.90) M/uL Hgb (12.0-16.0) g/dL Hct (36.0-46.0) % MCV (80.0-98.0) fL MCH (27.0-32.0) pg MCHC (31.0-37.0) g/dL RDW Std Deviation (28.0-62.0) fl RDW Coeff of Yousuf (11.0-15.0) % Plt Count (150-400) K/uL MPV (7.40-12.00) fL Neut % (Auto) (48.0-80.0) % Lymph % (Auto) (16.0-40.0) % [place] % (Auto) (0.0-15.0) % Eos % (Auto) (0.0-7.0) % Baso % (Auto) (0.0-1.5) % Neut # (Auto) (1.4-5.7) K/uL Lymph # (Auto) (0.6-2.4) K/uL [place] # (Auto) (0.0-0.8) K/uL Eos # (Auto) (0.0-0.7) K/uL Baso # (Auto) (0.0-0.1) K/uL Nucleated RBC % /100WBC Nucleated RBCs # K/uL Sodium (136-145) mmol/L Potassium (3.5-5.1) mmol/L Chloride (98-107) mmol/L Carbon Dioxide (21.0-32.0) mmol/L BUN (7.0-18.0) mg/dL Creatinine (0.6-1.0) mg/dL Est Cr Clr Drug Dosing mL/min Estimated GFR (MDRD) ml/min Glucose (74-106) mg/dL POC Glucose 76 132 H 83 (60-110) mg/dL Calcium (8.5-10.1) mg/dL Total Bilirubin (0.2-1.0) mg/dL AST (15-37) IU/L ALT (14-63) IU/L Alkaline Phosphatase (46-116) U/L Total Protein (6.4-8.2) g/dL Albumin (3.4-5.0) g/dL Globulin (2.6-4.0) g/dL Albumin/Globulin Ratio (0.9-1.6) Triglycerides (0-200) mg/dL Cholesterol (50-200) mg/dL LDL Cholesterol, Calc (60-180) mg/dL VLDL Cholesterol (5-55) mg/dL HDL Cholesterol (40-60) mg/dL Cholesterol/HDL Ratio (3.3-6.0) Urine Color Urine Appearance Urine pH (5.0-8.0) Ur Specific [place] (1.001-1.035) Urine Protein (NEGATIVE) mg/dL Urine Glucose (UA) (NEGATIVE) mg/dL Urine Ketones (NEGATIVE) mg/dL Urine Occult Blood (NEGATIVE) Urine Nitrite (NEGATIVE) Urine Bilirubin (NEGATIVE) Urine Ictotest Urine Urobilinogen (<2.0) EU/dL Ur Leukocyte Esterase (NEGATIVE) Urine RBC (0-2/HPF) Urine WBC (0-5/HPF) Ur Epithelial Cells (NONE-FEW) Urine Bacteria (NEGATIVE) 09/05/19 09/05/19 09/05/19 Range/Units 17:20 18:03 19:55 WBC (4.0-11.0) K/uL RBC (4.30-5.90) M/uL Hgb (12.0-16.0) g/dL Hct (36.0-46.0) % MCV (80.0-98.0) fL MCH (27.0-32.0) pg MCHC (31.0-37.0) g/dL RDW Std Deviation (28.0-62.0) fl RDW Coeff of Yousuf (11.0-15.0) % Plt Count (150-400) K/uL MPV (7.40-12.00) fL Neut % (Auto) (48.0-80.0) % Lymph % (Auto) (16.0-40.0) % [place] % (Auto) (0.0-15.0) % Eos % (Auto) (0.0-7.0) % Baso % (Auto) (0.0-1.5) % Neut # (Auto) (1.4-5.7) K/uL Lymph # (Auto) (0.6-2.4) K/uL [place] # (Auto) (0.0-0.8) K/uL Eos # (Auto) (0.0-0.7) K/uL Baso # (Auto) (0.0-0.1) K/uL Nucleated RBC % /100WBC Nucleated RBCs # K/uL Sodium (136-145) mmol/L Potassium (3.5-5.1) mmol/L Chloride (98-107) mmol/L Carbon Dioxide (21.0-32.0) mmol/L BUN (7.0-18.0) mg/dL Creatinine (0.6-1.0) mg/dL Est Cr Clr Drug Dosing mL/min Estimated GFR (MDRD) ml/min Glucose (74-106) mg/dL POC Glucose 76 91 (60-110) mg/dL Calcium (8.5-10.1) mg/dL Total Bilirubin (0.2-1.0) mg/dL AST (15-37) IU/L ALT (14-63) IU/L Alkaline Phosphatase (46-116) U/L Total Protein (6.4-8.2) g/dL Albumin (3.4-5.0) g/dL Globulin (2.6-4.0) g/dL Albumin/Globulin Ratio (0.9-1.6) Triglycerides (0-200) mg/dL Cholesterol (50-200) mg/dL LDL Cholesterol, Calc (60-180) mg/dL VLDL Cholesterol (5-55) mg/dL HDL Cholesterol (40-60) mg/dL Cholesterol/HDL Ratio (3.3-6.0) Urine Color YELLOW Urine Appearance CLEAR Urine pH 6.0 (5.0-8.0) Ur Specific [place] 1.025 (1.001-1.035) Urine Protein NEGATIVE (NEGATIVE) mg/dL Urine Glucose (UA) 250 H (NEGATIVE) mg/dL Urine Ketones >=80 (NEGATIVE) mg/dL Urine Occult Blood TRACE-LYSED H (NEGATIVE) Urine Nitrite NEGATIVE (NEGATIVE) Urine Bilirubin SMALL H (NEGATIVE) Urine Ictotest NEGATIVE Urine Urobilinogen 0.2 (<2.0) EU/dL Ur Leukocyte Esterase NEGATIVE (NEGATIVE) Urine RBC 0-2 (0-2/HPF) Urine WBC 0-1 (0-5/HPF) Ur Epithelial Cells OCCASIONAL (NONE-FEW) Urine Bacteria RARE (NEGATIVE) 09/05/19 09/05/19 09/06/19 Range/Units 22:13 23:54 02:08 WBC (4.0-11.0) K/uL RBC (4.30-5.90) M/uL Hgb (12.0-16.0) g/dL Hct (36.0-46.0) % MCV (80.0-98.0) fL MCH (27.0-32.0) pg MCHC (31.0-37.0) g/dL RDW Std Deviation (28.0-62.0) fl RDW Coeff of Yousuf (11.0-15.0) % Plt Count (150-400) K/uL MPV (7.40-12.00) fL Neut % (Auto) (48.0-80.0) % Lymph % (Auto) (16.0-40.0) % [place] % (Auto) (0.0-15.0) % Eos % (Auto) (0.0-7.0) % Baso % (Auto) (0.0-1.5) % Neut # (Auto) (1.4-5.7) K/uL Lymph # (Auto) (0.6-2.4) K/uL [place] # (Auto) (0.0-0.8) K/uL Eos # (Auto) (0.0-0.7) K/uL Baso # (Auto) (0.0-0.1) K/uL Nucleated RBC % /100WBC Nucleated RBCs # K/uL Sodium (136-145) mmol/L Potassium (3.5-5.1) mmol/L Chloride (98-107) mmol/L Carbon Dioxide (21.0-32.0) mmol/L BUN (7.0-18.0) mg/dL Creatinine (0.6-1.0) mg/dL Est Cr Clr Drug Dosing mL/min Estimated GFR (MDRD) ml/min Glucose (74-106) mg/dL POC Glucose 87 86 84 (60-110) mg/dL Calcium (8.5-10.1) mg/dL Total Bilirubin (0.2-1.0) mg/dL AST (15-37) IU/L ALT (14-63) IU/L Alkaline Phosphatase (46-116) U/L Total Protein (6.4-8.2) g/dL Albumin (3.4-5.0) g/dL Globulin (2.6-4.0) g/dL Albumin/Globulin Ratio (0.9-1.6) Triglycerides (0-200) mg/dL Cholesterol (50-200) mg/dL LDL Cholesterol, Calc (60-180) mg/dL VLDL Cholesterol (5-55) mg/dL HDL Cholesterol (40-60) mg/dL Cholesterol/HDL Ratio (3.3-6.0) Urine Color Urine Appearance Urine pH (5.0-8.0) Ur Specific [place] (1.001-1.035) Urine Protein (NEGATIVE) mg/dL Urine Glucose (UA) (NEGATIVE) mg/dL Urine Ketones (NEGATIVE) mg/dL Urine Occult Blood (NEGATIVE) Urine Nitrite (NEGATIVE) Urine Bilirubin (NEGATIVE) Urine Ictotest Urine Urobilinogen (<2.0) EU/dL Ur Leukocyte Esterase (NEGATIVE) Urine RBC (0-2/HPF) Urine WBC (0-5/HPF) Ur Epithelial Cells (NONE-FEW) Urine Bacteria (NEGATIVE) 09/06/19 09/06/19 09/06/19 Range/Units 04:37 06:23 06:23 WBC 9.10 (4.0-11.0) K/uL RBC 3.30 L (4.30-5.90) M/uL Hgb 10.7 L (12.0-16.0) g/dL Hct 32.5 L (36.0-46.0) % MCV 98.5 H (80.0-98.0) fL MCH 32.4 H (27.0-32.0) pg MCHC 32.9 (31.0-37.0) g/dL RDW Std Deviation 50.8 (28.0-62.0) fl RDW Coeff of Yousuf 14 (11.0-15.0) % Plt Count 105 L (150-400) K/uL MPV 10.10 (7.40-12.00) fL Neut % (Auto) 82.1 H (48.0-80.0) % Lymph % (Auto) 9.9 L (16.0-40.0) % [place] % (Auto) 7.4 (0.0-15.0) % Eos % (Auto) 0.5 (0.0-7.0) % Baso % (Auto) 0.1 (0.0-1.5) % Neut # (Auto) 7.5 H (1.4-5.7) K/uL Lymph # (Auto) 0.9 (0.6-2.4) K/uL [place] # (Auto) 0.7 (0.0-0.8) K/uL Eos # (Auto) 0.1 (0.0-0.7) K/uL Baso # (Auto) 0.0 (0.0-0.1) K/uL Nucleated RBC % 0.0 /100WBC Nucleated RBCs # 0 K/uL Sodium 139 (136-145) mmol/L Potassium 3.1 L (3.5-5.1) mmol/L Chloride 104 (98-107) mmol/L Carbon Dioxide 25.3 (21.0-32.0) mmol/L BUN 2 L (7.0-18.0) mg/dL Creatinine 0.6 (0.6-1.0) mg/dL Est Cr Clr Drug Dosing 135.46 mL/min Estimated GFR (MDRD) > 60.0 ml/min Glucose 79 (74-106) mg/dL POC Glucose 91 (60-110) mg/dL Calcium 7.3 L (8.5-10.1) mg/dL Total Bilirubin 0.8 (0.2-1.0) mg/dL AST 39 H (15-37) IU/L ALT 41 (14-63) IU/L Alkaline Phosphatase 58 (46-116) U/L Total Protein 5.7 L (6.4-8.2) g/dL Albumin 2.7 L (3.4-5.0) g/dL Globulin 3.0 (2.6-4.0) g/dL Albumin/Globulin Ratio 0.9 (0.9-1.6) Triglycerides (0-200) mg/dL Cholesterol (50-200) mg/dL LDL Cholesterol, Calc (60-180) mg/dL VLDL Cholesterol (5-55) mg/dL HDL Cholesterol (40-60) mg/dL Cholesterol/HDL Ratio (3.3-6.0) Urine Color Urine Appearance Urine pH (5.0-8.0) Ur Specific [place] (1.001-1.035) Urine Protein (NEGATIVE) mg/dL Urine Glucose (UA) (NEGATIVE) mg/dL Urine Ketones (NEGATIVE) mg/dL Urine Occult Blood (NEGATIVE) Urine Nitrite (NEGATIVE) Urine Bilirubin (NEGATIVE) Urine Ictotest Urine Urobilinogen (<2.0) EU/dL Ur Leukocyte Esterase (NEGATIVE) Urine RBC (0-2/HPF) Urine WBC (0-5/HPF) Ur Epithelial Cells (NONE-FEW) Urine Bacteria (NEGATIVE) 09/06/19 Range/Units 06:27 WBC (4.0-11.0) K/uL RBC (4.30-5.90) M/uL Hgb (12.0-16.0) g/dL Hct (36.0-46.0) % MCV (80.0-98.0) fL MCH (27.0-32.0) pg MCHC (31.0-37.0) g/dL RDW Std Deviation (28.0-62.0) fl RDW Coeff of Yousuf (11.0-15.0) % Plt Count (150-400) K/uL MPV (7.40-12.00) fL Neut % (Auto) (48.0-80.0) % Lymph % (Auto) (16.0-40.0) % [place] % (Auto) (0.0-15.0) % Eos % (Auto) (0.0-7.0) % Baso % (Auto) (0.0-1.5) % Neut # (Auto) (1.4-5.7) K/uL Lymph # (Auto) (0.6-2.4) K/uL [place] # (Auto) (0.0-0.8) K/uL Eos # (Auto) (0.0-0.7) K/uL Baso # (Auto) (0.0-0.1) K/uL Nucleated RBC % /100WBC Nucleated RBCs # K/uL Sodium (136-145) mmol/L Potassium (3.5-5.1) mmol/L Chloride (98-107) mmol/L Carbon Dioxide (21.0-32.0) mmol/L BUN (7.0-18.0) mg/dL Creatinine (0.6-1.0) mg/dL Est Cr Clr Drug Dosing mL/min Estimated GFR (MDRD) ml/min Glucose (74-106) mg/dL POC Glucose 94 (60-110) mg/dL Calcium (8.5-10.1) mg/dL Total Bilirubin (0.2-1.0) mg/dL AST (15-37) IU/L ALT (14-63) IU/L Alkaline Phosphatase (46-116) U/L Total Protein (6.4-8.2) g/dL Albumin (3.4-5.0) g/dL Globulin (2.6-4.0) g/dL Albumin/Globulin Ratio (0.9-1.6) Triglycerides (0-200) mg/dL Cholesterol (50-200) mg/dL LDL Cholesterol, Calc (60-180) mg/dL VLDL Cholesterol (5-55) mg/dL HDL Cholesterol (40-60) mg/dL Cholesterol/HDL Ratio (3.3-6.0) Urine Color Urine Appearance Urine pH (5.0-8.0) Ur Specific [place] (1.001-1.035) Urine Protein (NEGATIVE) mg/dL Urine Glucose (UA) (NEGATIVE) mg/dL Urine Ketones (NEGATIVE) mg/dL Urine Occult Blood (NEGATIVE) Urine Nitrite (NEGATIVE) Urine Bilirubin (NEGATIVE) Urine Ictotest Urine Urobilinogen (<2.0) EU/dL Ur Leukocyte Esterase (NEGATIVE) Urine RBC (0-2/HPF) Urine WBC (0-5/HPF) Ur Epithelial Cells (NONE-FEW) Urine Bacteria (NEGATIVE) Med Orders - Current: Current Medications Enoxaparin Sodium (Lovenox) 40 mg SUBCUT Q24H [facility] Last Admin: 09/05/19 20:48 Dose: 40 mg Folic Acid (Folic Acid) 1 mg SUBCUT DAILY [facility] Last Admin: 09/05/19 08:08 Dose: 1 mg Hydromorphone HCl (Dilaudid) 1 mg IVPUSH Q3H PRN PRN Reason: Pain Last Admin: 09/06/19 03:10 Dose: 1 mg Thiamine HCl 100 mg/ Sodium (Chloride) 101 mls @ 202 mls/hr IV DAILY [facility] Last Admin: 09/05/19 08:46 Dose: 202 mls/hr Dextrose/Sodium Chloride (Dextrose 5%-Normal Saline) 1,000 mls @ 100 mls/hr IV ASDIRECTED [facility] Last Admin: 09/05/19 22:22 Dose: 100 mls/hr Sodium Chloride (Normal Saline) 1,000 mls @ 100 mls/hr IV Q10H [facility] Potassium Chloride 40 meq/ (Sodium Chloride) 520 mls @ 130 mls/hr IV ONETIME [facility] Lorazepam (Ativan) 0 mg PO Q4H PRN; Protocol PRN Reason: CIWAA assessment Last Admin: 09/05/19 12:29 Dose: 1 mg Melatonin (Melatonin) 6 mg PO ONETIME PRN PRN Reason: Insomnia Last Admin: 09/05/19 22:15 Dose: 6 mg Sodium Chloride (Saline Flush) 10 ml FLUSH ASDIRECTED PRN PRN Reason: Keep Vein Open Last Admin: 09/04/19 16:06 Dose: 10 ml Sodium Chloride (Saline Flush) 2.5 ml FLUSH ASDIRECTED PRN PRN Reason: Keep Vein Open Last Admin: 09/04/19 16:06 Dose: 2.5 ml Discontinued Medications Calcium Gluconate (Calcium Gluconate) 1 gm IVPUSH ONETIME ONE Stop: 09/05/19 09:33 Last Admin: 09/05/19 10:01 Dose: Not Given Dextrose/Water (Dextrose 50% In Water) 50 ml IVPUSH ONETIME ONE Stop: 09/05/19 09:33 Last Admin: 09/05/19 09:55 Dose: 50 ml Dextrose/Water (Dextrose 50% In Water) 50 ml IVPUSH ONETIME ONE Stop: 09/05/19 13:27 Last Admin: 09/05/19 13:41 Dose: 50 ml Hydromorphone HCl (Dilaudid) 0.5 mg IVPUSH ONETIME ONE Stop: 09/04/19 18:46 Last Admin: 09/04/19 18:50 Dose: 0.5 mg Sodium Chloride (Normal Saline) 1,000 mls @ 999 mls/hr IV .Bolus ONE Stop: 09/04/19 17:04 Last Admin: 09/04/19 16:05 Dose: 999 mls/hr Sodium Chloride (Normal Saline) 1,000 mls @ 999 mls/hr IV STAT ONE Stop: 09/04/19 19:02 Last Admin: 09/04/19 18:18 Dose: 999 mls/hr Sodium Chloride (Normal Saline) 1,000 mls @ 125 mls/hr IV STAT [facility] Sodium Chloride (Normal Saline) 1,000 mls @ 200 mls/hr IV STAT [facility] Last Admin: 09/05/19 05:08 Dose: 200 mls/hr Sodium Chloride (Normal Saline) 500 mls @ 999 mls/hr IV STAT ONE Stop: 09/04/19 19:09 Last Admin: 09/04/19 20:04 Dose: 999 mls/hr Sodium Chloride (Normal Saline) 1,000 mls @ 100 mls/hr IV STAT [facility] Last Admin: 09/06/19 05:11 Dose: 100 mls/hr Calcium Gluconate 1 gm/ Sodium (Chloride) 60 mls @ 60 mls/hr IV ONETIME ONE Stop: 09/05/19 11:14 Last Admin: 09/05/19 10:06 Dose: 60 mls/hr Iopamidol (Isovue-370 (76%)) 100 ml IVPUSH ONETIME STA Stop: 09/04/19 17:02 Last Admin: 09/04/19 17:02 Dose: 100 ml Morphine Sulfate (Morphine) 4 mg IVPUSH ONETIME ONE Stop: 09/04/19 15:54 Last Admin: 09/04/19 16:00 Dose: 4 mg Morphine Sulfate (Morphine) 2 mg IVPUSH ONETIME ONE Stop: 09/04/19 17:24 Last Admin: 09/04/19 17:28 Dose: 2 mg Morphine Sulfate (Morphine) 2 mg IVPUSH Q2H PRN PRN Reason: Pain (severe 7-10) Stop: 09/05/19 18:33 Last Admin: 09/04/19 20:08 Dose: 2 mg Ondansetron HCl (Zofran) 4 mg IVPUSH ONETIME ONE Stop: 09/04/19 15:54 Last Admin: 09/04/19 16:00 Dose: 4 mg - Exam General: Alert, Oriented, Cooperative, No Acute Distress Lungs: Clear to Auscultation, Normal Respiratory Effort Cardiovascular: Regular Rate, Regular Rhythm GI/Abdominal Exam: Normal Bowel Sounds, Soft, No Distention, Other (mild epigastric ttp) Extremities: Normal Inspection, No Pedal Edema Sepsis Event Note - Evaluation Sepsis Screening Result: No Definite Risk - Focused Exam Vital Signs: Vital Signs Temp Pulse Resp BP Pulse Ox 09/06/19 07:40 97.7 F 96 18 138/71 98 09/06/19 04:00 98.3 F 108 H 18 123/73 96 09/05/19 23:57 98.2 F 116 H 22 H 123/74 93 L Date Exam was Performed: 09/06/19 Time Exam was Performed: 09:50 - Problem List Review Problem List Initiated/Reviewed/Updated: Yes - My Orders Last 24 Hours: My Active Orders 09/05/19 07:52 Accu Check [Blood Glucose Check, Bedside] [RC] Q2H 09/05/19 08:00 Dextrose 5%-0.9% NaCl [Dextrose 5%-Normal Saline] 1,000 ml IV ASDIRECTED 09/05/19 10:25 Admission Status [Patient Status] [ADT] Routine 09/05/19 19:24 Melatonin 6 mg PO ONETIME PRN 09/06/19 07:30 Sodium Chloride 0.9% [Normal Saline] 1,000 ml IV Q10H 09/06/19 08:00 Potassium Chloride 40 meq Sodium Chloride 0.9% [Normal Saline] 500 ml IV ONETIME - Plan Plan:: Assessment and Plan: 1. Acute pancreatitis: Continue IV NS maintenance fluids 100 cc/hr with D5-NS 100 cc/hr. Accucheks q2h. Discontinue IV dilaudid and start PO oxycodone 325-5 mg q4h prn. Advance to CLD. If patient tolerating CLD then will discontinue IV fluids. 2. Alcohol abuse: [facility] assessments q4h. Ativan on board per [facility] protocol. 3. Transaminitis, secondary to #2, improving. 4. VTE prophylaxis: lovenox 40 mg subcut daily.
[2019-09-06] MEDS: Folic Acid 50 MG/10 ML MDV SUBCUT SCH (08:42)
[2019-09-06] MEDS: oxyCODONE 5 MG Tab PO PRN ×4 (09:28→22:09)
[2019-09-06] MEDS: Thiamine 100 MG in Sodium Chloride 0.9% 100 ML IV SCH (09:37)
[2019-09-06] MEDS ORDERED: Magnesium Sulfate/Water 2 GM in Premix Bag 1 BAG IV ONE (09:53)
[2019-09-06] MEDS: Dextrose 5%-0.9% NaCl 1,000 ML IV SCH (09:59)
[2019-09-06] MEDS ORDERED: Potassium Chloride 40 MEQ, Magnesium Sulfate 2 GM in Sodium Chloride 0.9% 500 ML IV SCH (10:30)
[2019-09-06] MEDS: Phosphorus #1 250 MG Tab PO SCH ×3 (11:58→23:32)
[2019-09-06] MEDS ORDERED: Docusate Sodium 100 MG Cap PO PRN (14:33)
[2019-09-06] MEDS ORDERED: Ibuprofen 400 MG Tab PO PRN (17:00)
[2019-09-06] MEDS: Enoxaparin 40 MG/0.4 ML Syringe SUBCUT SCH (20:37)
[2019-09-07] MEDS: Phosphorus #1 250 MG Tab PO SCH ×3 (05:44→13:07)
[2019-09-07 06:51] LABS: BLOOD UREA NITROGEN,BUN 3 mg/dL (7.0-18.0); CARBON DIOXIDE,CO2 25.7 mmol/L (21.0-32.0); CHLORIDE,CL 108 mmol/L (98-107); GLUCOSE RANDOM 72 mg/dL (74-106); POTASSIUM,K 3.6 mmol/L (3.5-5.1); SODIUM,NA 144 mmol/L (136-145)
[2019-09-07] MEDS ORDERED: Magnesium Sulfate/Water 2 GM in Premix Bag 1 BAG IV ONE (07:15)
[2019-09-07] MEDS: Folic Acid 50 MG/10 ML MDV SUBCUT SCH (09:07)
[2019-09-07] MEDS: Thiamine 100 MG in Sodium Chloride 0.9% 100 ML IV SCH (10:40)
--- NOTE | 2019-09-07 11:48 | PCM.DCSUM1 ---
<Nixon Haywood M - Last Filed: 09/07/19 11:54> Discharge Summary - Hospital Course Free Text/Narrative:: 34-year-old female admitted for acute pancreatitis. Past medical history of gastric bypass surgery, cholecystectomy and PTSD. Lipase level on admission was ~8000 with associated abdominal pain, nausea and vomiting. Patient started on IV fluids, NPO and IV pain medication. CT abdomen showed edema and free fluid in the upper quadrants and severe hepatic steatosis. RUQ abdominal u/s was negative. Patient kept on CIWA protocol and ativan prn. Patient was successfully transitioned to PO pain medication and oral diet. On day of discharge, reported feeling much better and able to tolerate PO. Counselled on alcohol cessation and recommended she continue seeking help for alcohol abuse and rehab. Patient verbalized understanding. - Discharge Data Discharge Date: 09/07/19 Discharge Disposition: Home, Self-Care 01 Condition: Stable - Referral to Home Health Primary Care Physician: PCP None - Patient Instructions Diet: Usual Diet as Tolerated Activity: As Tolerated Notify Provider of: Fever, Increased Pain, Swelling and Redness, Drainage, Nausea and/or Vomiting - Discharge Plan *PRESCRIPTION DRUG MONITORING PROGRAM REVIEWED*: Not Applicable *COPY OF PRESCRIPTION DRUG MONITORING REPORT IN PATIENT KEV: Not Applicable Prescriptions/Med Rec: Folic Acid 1 mg PO DAILY 30 Days #30 tab Phosphorus #1 [Neutra-Phos] 250 mg PO QID 1 Days #3 tablet Thiamine [Vitamin B-1] 100 mg PO DAILY 30 Days #30 tab Home Medications: Home Meds Folic Acid 1 mg PO DAILY 30 Days #30 tab 09/07/19 [Rx] Phosphorus #1 [Neutra-Phos] 250 mg PO QID 1 Days #3 tablet 09/07/19 [Rx] Thiamine [Vitamin B-1] 100 mg PO DAILY 30 Days #30 tab 09/07/19 [Rx] Patient Handouts: Acute Pancreatitis, [id number], Thiamine, Vitamin B1 tablets, Folic Acid, Vitamin B9 tablets - Discharge Summary/Plan Comment DC Time >30 min.: No - Patient Data Vitals - Most Recent: Last Vital Signs Temp 97.1 F 09/07/19 11:30 Pulse 77 09/07/19 11:30 Resp 18 09/07/19 11:30 BP 139/90 09/07/19 11:30 Pulse Ox 100 09/07/19 11:30 Weight - Most Recent: 79.379 kg I&O - Last 24 hours: Intake & Output 09/06/19 09/07/19 09/07/19 22:59 06:59 14:59 Intake Total 4249 1830 150 Output Total 2650 2250 Balance 1599 -420 150 Lab Results - Last 24 hrs: Laboratory Results - last 24 hr 09/06/19 09/06/19 09/06/19 Range/Units 12:08 16:19 20:45 WBC (4.0-11.0) K/uL RBC (4.30-5.90) M/uL Hgb (12.0-16.0) g/dL Hct (36.0-46.0) % MCV (80.0-98.0) fL MCH (27.0-32.0) pg MCHC (31.0-37.0) g/dL RDW Std Deviation (28.0-62.0) fl RDW Coeff of Yousuf (11.0-15.0) % Plt Count (150-400) K/uL MPV (7.40-12.00) fL Neut % (Auto) (48.0-80.0) % Lymph % (Auto) (16.0-40.0) % [place] % (Auto) (0.0-15.0) % Eos % (Auto) (0.0-7.0) % Baso % (Auto) (0.0-1.5) % Neut # (Auto) (1.4-5.7) K/uL Lymph # (Auto) (0.6-2.4) K/uL [place] # (Auto) (0.0-0.8) K/uL Eos # (Auto) (0.0-0.7) K/uL Baso # (Auto) (0.0-0.1) K/uL Nucleated RBC % /100WBC Nucleated RBCs # K/uL Sodium (136-145) mmol/L Potassium (3.5-5.1) mmol/L Chloride (98-107) mmol/L Carbon Dioxide (21.0-32.0) mmol/L BUN (7.0-18.0) mg/dL Creatinine (0.6-1.0) mg/dL Est Cr Clr Drug Dosing mL/min Estimated GFR (MDRD) ml/min Glucose (74-106) mg/dL POC Glucose 93 100 70 (60-110) mg/dL Calcium (8.5-10.1) mg/dL Phosphorus (2.6-4.7) mg/dL Magnesium (1.8-2.4) mg/dL Total Bilirubin (0.2-1.0) mg/dL AST (15-37) IU/L ALT (14-63) IU/L Alkaline Phosphatase (46-116) U/L Total Protein (6.4-8.2) g/dL Albumin (3.4-5.0) g/dL Globulin (2.6-4.0) g/dL Albumin/Globulin Ratio (0.9-1.6) 09/06/19 09/07/19 09/07/19 Range/Units 23:28 04:13 05:40 WBC 8.29 (4.0-11.0) K/uL RBC 3.43 L (4.30-5.90) M/uL Hgb 10.9 L (12.0-16.0) g/dL Hct 33.7 L (36.0-46.0) % MCV 98.3 H (80.0-98.0) fL MCH 31.8 (27.0-32.0) pg MCHC 32.3 (31.0-37.0) g/dL RDW Std Deviation 51.0 (28.0-62.0) fl RDW Coeff of Yousuf 14 (11.0-15.0) % Plt Count 110 L (150-400) K/uL MPV 10.80 (7.40-12.00) fL Neut % (Auto) 77.9 (48.0-80.0) % Lymph % (Auto) 11.6 L (16.0-40.0) % [place] % (Auto) 9.2 (0.0-15.0) % Eos % (Auto) 1.1 (0.0-7.0) % Baso % (Auto) 0.2 (0.0-1.5) % Neut # (Auto) 6.5 H (1.4-5.7) K/uL Lymph # (Auto) 1.0 (0.6-2.4) K/uL [place] # (Auto) 0.8 (0.0-0.8) K/uL Eos # (Auto) 0.1 (0.0-0.7) K/uL Baso # (Auto) 0.0 (0.0-0.1) K/uL Nucleated RBC % 0.0 /100WBC Nucleated RBCs # 0 K/uL Sodium (136-145) mmol/L Potassium (3.5-5.1) mmol/L Chloride (98-107) mmol/L Carbon Dioxide (21.0-32.0) mmol/L BUN (7.0-18.0) mg/dL Creatinine (0.6-1.0) mg/dL Est Cr Clr Drug Dosing mL/min Estimated GFR (MDRD) ml/min Glucose (74-106) mg/dL POC Glucose 71 72 (60-110) mg/dL Calcium (8.5-10.1) mg/dL Phosphorus (2.6-4.7) mg/dL Magnesium (1.8-2.4) mg/dL Total Bilirubin (0.2-1.0) mg/dL AST (15-37) IU/L ALT (14-63) IU/L Alkaline Phosphatase (46-116) U/L Total Protein (6.4-8.2) g/dL Albumin (3.4-5.0) g/dL Globulin (2.6-4.0) g/dL Albumin/Globulin Ratio (0.9-1.6) 09/07/19 09/07/19 Range/Units 05:40 08:02 WBC (4.0-11.0) K/uL RBC (4.30-5.90) M/uL Hgb (12.0-16.0) g/dL Hct (36.0-46.0) % MCV (80.0-98.0) fL MCH (27.0-32.0) pg MCHC (31.0-37.0) g/dL RDW Std Deviation (28.0-62.0) fl RDW Coeff of Yousuf (11.0-15.0) % Plt Count (150-400) K/uL MPV (7.40-12.00) fL Neut % (Auto) (48.0-80.0) % Lymph % (Auto) (16.0-40.0) % [place] % (Auto) (0.0-15.0) % Eos % (Auto) (0.0-7.0) % Baso % (Auto) (0.0-1.5) % Neut # (Auto) (1.4-5.7) K/uL Lymph # (Auto) (0.6-2.4) K/uL [place] # (Auto) (0.0-0.8) K/uL Eos # (Auto) (0.0-0.7) K/uL Baso # (Auto) (0.0-0.1) K/uL Nucleated RBC % /100WBC Nucleated RBCs # K/uL Sodium 144 (136-145) mmol/L Potassium 3.6 (3.5-5.1) mmol/L Chloride 108 H (98-107) mmol/L Carbon Dioxide 25.7 (21.0-32.0) mmol/L BUN 3 L (7.0-18.0) mg/dL Creatinine 0.5 L (0.6-1.0) mg/dL Est Cr Clr Drug Dosing 162.56 mL/min Estimated GFR (MDRD) > 60.0 ml/min Glucose 72 L (74-106) mg/dL POC Glucose 117 H (60-110) mg/dL Calcium 8.0 L (8.5-10.1) mg/dL Phosphorus 2.4 L (2.6-4.7) mg/dL Magnesium 1.7 L (1.8-2.4) mg/dL Total Bilirubin 0.9 (0.2-1.0) mg/dL AST 40 H (15-37) IU/L ALT 45 (14-63) IU/L Alkaline Phosphatase 69 (46-116) U/L Total Protein 6.4 (6.4-8.2) g/dL Albumin 3.0 L (3.4-5.0) g/dL Globulin 3.4 (2.6-4.0) g/dL Albumin/Globulin Ratio 0.9 (0.9-1.6) Med Orders - Current: Current Medications Docusate Sodium (Colace) 100 mg PO BID PRN PRN Reason: Constipation Last Admin: 09/06/19 17:52 Dose: 100 mg Enoxaparin Sodium (Lovenox) 40 mg SUBCUT Q24H [facility] Last Admin: 09/06/19 20:37 Dose: Not Given Folic Acid (Folic Acid) 1 mg SUBCUT DAILY [facility] Last Admin: 09/07/19 09:07 Dose: 1 mg Thiamine HCl 100 mg/ Sodium (Chloride) 101 mls @ 202 mls/hr IV DAILY [facility] Last Admin: 09/07/19 10:40 Dose: 202 mls/hr Potassium Chloride 40 meq/Magnesium Sulfate 2 gm/ Sodium Chloride 524 mls @ 131 mls/hr IV ONETIME [facility] Last Admin: 09/06/19 10:43 Dose: 131 mls/hr Ibuprofen (Motrin) 400 mg PO Q4H PRN PRN Reason: Pain Last Admin: 09/06/19 17:32 Dose: 400 mg Lorazepam (Ativan) 0 mg PO Q4H PRN; Protocol PRN Reason: CIWAA assessment Last Admin: 09/05/19 12:29 Dose: 1 mg Melatonin (Melatonin) 6 mg PO ONETIME PRN PRN Reason: Insomnia Last Admin: 09/05/19 22:15 Dose: 6 mg Oxycodone HCl (Oxycodone) 5 mg PO Q4H PRN PRN Reason: Pain Last Admin: 09/06/19 22:09 Dose: 5 mg Sodium Chloride (Saline Flush) 10 ml FLUSH ASDIRECTED PRN PRN Reason: Keep Vein Open Last Admin: 09/04/19 16:06 Dose: 10 ml Sodium Chloride (Saline Flush) 2.5 ml FLUSH ASDIRECTED PRN PRN Reason: Keep Vein Open Last Admin: 09/04/19 16:06 Dose: 2.5 ml Sodium Phosphate (Neutra-Phos) 250 mg PO QID [facility] Stop: 09/08/19 00:01 Last Admin: 09/07/19 09:13 Dose: 250 mg Discontinued Medications Calcium Gluconate (Calcium Gluconate) 1 gm IVPUSH ONETIME ONE Stop: 09/05/19 09:33 Last Admin: 09/05/19 10:01 Dose: Not Given Dextrose/Water (Dextrose 50% In Water) 50 ml IVPUSH ONETIME ONE Stop: 09/05/19 09:33 Last Admin: 09/05/19 09:55 Dose: 50 ml Dextrose/Water (Dextrose 50% In Water) 50 ml IVPUSH ONETIME ONE Stop: 09/05/19 13:27 Last Admin: 09/05/19 13:41 Dose: 50 ml Hydromorphone HCl (Dilaudid) 0.5 mg IVPUSH ONETIME ONE Stop: 09/04/19 18:46 Last Admin: 09/04/19 18:50 Dose: 0.5 mg Hydromorphone HCl (Dilaudid) 1 mg IVPUSH Q3H PRN PRN Reason: Pain Last Admin: 09/06/19 03:10 Dose: 1 mg Sodium Chloride (Normal Saline) 1,000 mls @ 999 mls/hr IV .Bolus ONE Stop: 09/04/19 17:04 Last Admin: 09/04/19 16:05 Dose: 999 mls/hr Sodium Chloride (Normal Saline) 1,000 mls @ 999 mls/hr IV STAT ONE Stop: 09/04/19 19:02 Last Admin: 09/04/19 18:18 Dose: 999 mls/hr Sodium Chloride (Normal Saline) 1,000 mls @ 125 mls/hr IV STAT [facility] Sodium Chloride (Normal Saline) 1,000 mls @ 200 mls/hr IV STAT [facility] Last Admin: 09/05/19 05:08 Dose: 200 mls/hr Sodium Chloride (Normal Saline) 500 mls @ 999 mls/hr IV STAT ONE Stop: 09/04/19 19:09 Last Admin: 09/04/19 20:04 Dose: 999 mls/hr Sodium Chloride (Normal Saline) 1,000 mls @ 100 mls/hr IV STAT [facility] Last Admin: 09/06/19 05:11 Dose: 100 mls/hr Dextrose/Sodium Chloride (Dextrose 5%-Normal Saline) 1,000 mls @ 100 mls/hr IV ASDIRECTED [facility] Last Admin: 09/06/19 09:59 Dose: 100 mls/hr Calcium Gluconate 1 gm/ Sodium (Chloride) 60 mls @ 60 mls/hr IV ONETIME ONE Stop: 09/05/19 11:14 Last Admin: 09/05/19 10:06 Dose: 60 mls/hr Sodium Chloride (Normal Saline) 1,000 mls @ 100 mls/hr IV Q10H [facility] Last Admin: 09/06/19 17:59 Dose: Not Given Potassium Chloride 40 meq/ (Sodium Chloride) 520 mls @ 130 mls/hr IV ONETIME [facility] Magnesium Sulfate 2 gm/ Premix 50 mls @ 25 mls/hr IV ONETIME ONE Stop: 09/07/19 09:14 Last Admin: 09/07/19 08:03 Dose: 25 mls/hr Iopamidol (Isovue-370 (76%)) 100 ml IVPUSH ONETIME STA Stop: 09/04/19 17:02 Last Admin: 09/04/19 17:02 Dose: 100 ml Morphine Sulfate (Morphine) 4 mg IVPUSH ONETIME ONE Stop: 09/04/19 15:54 Last Admin: 09/04/19 16:00 Dose: 4 mg Morphine Sulfate (Morphine) 2 mg IVPUSH ONETIME ONE Stop: 09/04/19 17:24 Last Admin: 09/04/19 17:28 Dose: 2 mg Morphine Sulfate (Morphine) 2 mg IVPUSH Q2H PRN PRN Reason: Pain (severe 7-10) Stop: 09/05/19 18:33 Last Admin: 09/04/19 20:08 Dose: 2 mg Ondansetron HCl (Zofran) 4 mg IVPUSH ONETIME ONE Stop: 09/04/19 15:54 Last Admin: 09/04/19 16:00 Dose: 4 mg Sodium Phosphate (Neutra-Phos) 250 mg PO QID [facility] Stop: 09/07/19 06:01 Last Admin: 09/07/19 05:44 Dose: 250 mg <Walter Maya - Last Filed: 09/07/19 21:05> Discharge Summary - Hospital Course HPI Initial Comments: I have seen and evaluated the patient and agree with the residents note unless specified in my note - Referral to Home Health Primary Care Physician: PCP None - Patient Data Vitals - Most Recent: Last Vital Signs Temp 36.2 C 09/07/19 11:30 Pulse 77 09/07/19 11:30 Resp 18 09/07/19 11:30 BP 139/90 09/07/19 11:30 Pulse Ox 100 09/07/19 11:30 I&O - Last 24 hours: Intake & Output 09/07/19 09/07/19 09/07/19 06:59 14:59 22:59 Intake Total 1830 1110 Output Total 2250 250 Balance -420 860 Lab Results - Last 24 hrs: Laboratory Results - last 24 hr 09/06/19 09/06/19 09/07/19 Range/Units 20:45 23:28 04:13 WBC (4.0-11.0) K/uL RBC (4.30-5.90) M/uL Hgb (12.0-16.0) g/dL Hct (36.0-46.0) % MCV (80.0-98.0) fL MCH (27.0-32.0) pg MCHC (31.0-37.0) g/dL RDW Std Deviation (28.0-62.0) fl RDW Coeff of Yousuf (11.0-15.0) % Plt Count (150-400) K/uL MPV (7.40-12.00) fL Neut % (Auto) (48.0-80.0) % Lymph % (Auto) (16.0-40.0) % [place] % (Auto) (0.0-15.0) % Eos % (Auto) (0.0-7.0) % Baso % (Auto) (0.0-1.5) % Neut # (Auto) (1.4-5.7) K/uL Lymph # (Auto) (0.6-2.4) K/uL [place] # (Auto) (0.0-0.8) K/uL Eos # (Auto) (0.0-0.7) K/uL Baso # (Auto) (0.0-0.1) K/uL Nucleated RBC % /100WBC Nucleated RBCs # K/uL Sodium (136-145) mmol/L Potassium (3.5-5.1) mmol/L Chloride (98-107) mmol/L Carbon Dioxide (21.0-32.0) mmol/L BUN (7.0-18.0) mg/dL Creatinine (0.6-1.0) mg/dL Est Cr Clr Drug Dosing mL/min Estimated GFR (MDRD) ml/min Glucose (74-106) mg/dL POC Glucose 70 71 72 (60-110) mg/dL Calcium (8.5-10.1) mg/dL Phosphorus (2.6-4.7) mg/dL Magnesium (1.8-2.4) mg/dL Total Bilirubin (0.2-1.0) mg/dL AST (15-37) IU/L ALT (14-63) IU/L Alkaline Phosphatase (46-116) U/L Total Protein (6.4-8.2) g/dL Albumin (3.4-5.0) g/dL Globulin (2.6-4.0) g/dL Albumin/Globulin Ratio (0.9-1.6) 09/07/19 09/07/19 09/07/19 Range/Units 05:40 05:40 08:02 WBC 8.29 (4.0-11.0) K/uL RBC 3.43 L (4.30-5.90) M/uL Hgb 10.9 L (12.0-16.0) g/dL Hct 33.7 L (36.0-46.0) % MCV 98.3 H (80.0-98.0) fL MCH 31.8 (27.0-32.0) pg MCHC 32.3 (31.0-37.0) g/dL RDW Std Deviation 51.0 (28.0-62.0) fl RDW Coeff of Yousuf 14 (11.0-15.0) % Plt Count 110 L (150-400) K/uL MPV 10.80 (7.40-12.00) fL Neut % (Auto) 77.9 (48.0-80.0) % Lymph % (Auto) 11.6 L (16.0-40.0) % [place] % (Auto) 9.2 (0.0-15.0) % Eos % (Auto) 1.1 (0.0-7.0) % Baso % (Auto) 0.2 (0.0-1.5) % Neut # (Auto) 6.5 H (1.4-5.7) K/uL Lymph # (Auto) 1.0 (0.6-2.4) K/uL [place] # (Auto) 0.8 (0.0-0.8) K/uL Eos # (Auto) 0.1 (0.0-0.7) K/uL Baso # (Auto) 0.0 (0.0-0.1) K/uL Nucleated RBC % 0.0 /100WBC Nucleated RBCs # 0 K/uL Sodium 144 (136-145) mmol/L Potassium 3.6 (3.5-5.1) mmol/L Chloride 108 H (98-107) mmol/L Carbon Dioxide 25.7 (21.0-32.0) mmol/L BUN 3 L (7.0-18.0) mg/dL Creatinine 0.5 L (0.6-1.0) mg/dL Est Cr Clr Drug Dosing 162.56 mL/min Estimated GFR (MDRD) > 60.0 ml/min Glucose 72 L (74-106) mg/dL POC Glucose 117 H (60-110) mg/dL Calcium 8.0 L (8.5-10.1) mg/dL Phosphorus 2.4 L (2.6-4.7) mg/dL Magnesium 1.7 L (1.8-2.4) mg/dL Total Bilirubin 0.9 (0.2-1.0) mg/dL AST 40 H (15-37) IU/L ALT 45 (14-63) IU/L Alkaline Phosphatase 69 (46-116) U/L Total Protein 6.4 (6.4-8.2) g/dL Albumin 3.0 L (3.4-5.0) g/dL Globulin 3.4 (2.6-4.0) g/dL Albumin/Globulin Ratio 0.9 (0.9-1.6) 09/07/ Range/Units 12:33 WBC (4.0-11.0) K/uL RBC (4.30-5.90) M/uL Hgb (12.0-16.0) g/dL Hct (36.0-46.0) % MCV (80.0-98.0) fL MCH (27.0-32.0) pg MCHC (31.0-37.0) g/dL RDW Std Deviation (28.0-62.0) fl RDW Coeff of Yousuf (11.0-15.0) % Plt Count (150-400) K/uL MPV (7.40-12.00) fL Neut % (Auto) (48.0-80.0) % Lymph % (Auto) (16.0-40.0) % [place] % (Auto) (0.0-15.0) % Eos % (Auto) (0.0-7.0) % Baso % (Auto) (0.0-1.5) % Neut # (Auto) (1.4-5.7) K/uL Lymph # (Auto) (0.6-2.4) K/uL [place] # (Auto) (0.0-0.8) K/uL Eos # (Auto) (0.0-0.7) K/uL Baso # (Auto) (0.0-0.1) K/uL Nucleated RBC % /100WBC Nucleated RBCs # K/uL Sodium (136-145) mmol/L Potassium (3.5-5.1) mmol/L Chloride (98-107) mmol/L Carbon Dioxide (21.0-32.0) mmol/L BUN (7.0-18.0) mg/dL Creatinine (0.6-1.0) mg/dL Est Cr Clr Drug Dosing mL/min Estimated GFR (MDRD) ml/min Glucose (74-106) mg/dL POC Glucose 116 H (60-110) mg/dL Calcium (8.5-10.1) mg/dL Phosphorus (2.6-4.7) mg/dL Magnesium (1.8-2.4) mg/dL Total Bilirubin (0.2-1.0) mg/dL AST (15-37) IU/L ALT (14-63) IU/L Alkaline Phosphatase (46-116) U/L Total Protein (6.4-8.2) g/dL Albumin (3.4-5.0) g/dL Globulin (2.6-4.0) g/dL Albumin/Globulin Ratio (0.9-1.6) Med Orders - Current: Current Medications Discontinued Medications Calcium Gluconate (Calcium Gluconate) 1 gm IVPUSH ONETIME ONE Stop: 09/05/19 09:33 Last Admin: 09/05/19 10:01 Dose: Not Given Dextrose/Water (Dextrose 50% In Water) 50 ml IVPUSH ONETIME ONE Stop: 09/05/19 09:33 Last Admin: 09/05/19 09:55 Dose: 50 ml Dextrose/Water (Dextrose 50% In Water) 50 ml IVPUSH ONETIME ONE Stop: 09/05/19 13:27 Last Admin: 09/05/19 13:41 Dose: 50 ml Docusate Sodium (Colace) 100 mg PO BID PRN PRN Reason: Constipation Last Admin: 09/06/19 17:52 Dose: 100 mg Enoxaparin Sodium (Lovenox) 40 mg SUBCUT Q24H [facility] Last Admin: 09/06/19 20:37 Dose: Not Given Folic Acid (Folic Acid) 1 mg SUBCUT DAILY [facility] Last Admin: 09/07/19 09:07 Dose: 1 mg Hydromorphone HCl (Dilaudid) 0.5 mg IVPUSH ONETIME ONE Stop: 09/04/19 18:46 Last Admin: 09/04/19 18:50 Dose: 0.5 mg Hydromorphone HCl (Dilaudid) 1 mg IVPUSH Q3H PRN PRN Reason: Pain Last Admin: 09/06/19 03:10 Dose: 1 mg Sodium Chloride (Normal Saline) 1,000 mls @ 999 mls/hr IV .Bolus ONE Stop: 09/04/19 17:04 Last Admin: 09/04/19 16:05 Dose: 999 mls/hr Sodium Chloride (Normal Saline) 1,000 mls @ 999 mls/hr IV STAT ONE Stop: 09/04/19 19:02 Last Admin: 09/04/19 18:18 Dose: 999 mls/hr Sodium Chloride (Normal Saline) 1,000 mls @ 125 mls/hr IV STAT [facility] Sodium Chloride (Normal Saline) 1,000 mls @ 200 mls/hr IV STAT [facility] Last Admin: 09/05/19 05:08 Dose: 200 mls/hr Sodium Chloride (Normal Saline) 500 mls @ 999 mls/hr IV STAT ONE Stop: 09/04/19 19:09 Last Admin: 09/04/19 20:04 Dose: 999 mls/hr Thiamine HCl 100 mg/ Sodium (Chloride) 101 mls @ 202 mls/hr IV DAILY [facility] Last Admin: 09/07/19 10:40 Dose: 202 mls/hr Sodium Chloride (Normal Saline) 1,000 mls @ 100 mls/hr IV STAT [facility] Last Admin: 09/06/19 05:11 Dose: 100 mls/hr Dextrose/Sodium Chloride (Dextrose 5%-Normal Saline) 1,000 mls @ 100 mls/hr IV ASDIRECTED [facility] Last Admin: 09/06/19 09:59 Dose: 100 mls/hr Calcium Gluconate 1 gm/ Sodium (Chloride) 60 mls @ 60 mls/hr IV ONETIME ONE Stop: 09/05/19 11:14 Last Admin: 09/05/19 10:06 Dose: 60 mls/hr Sodium Chloride (Normal Saline) 1,000 mls @ 100 mls/hr IV Q10H [facility] Last Admin: 09/06/19 17:59 Dose: Not Given Potassium Chloride 40 meq/ (Sodium Chloride) 520 mls @ 130 mls/hr IV ONETIME [facility] Potassium Chloride 40 meq/Magnesium Sulfate 2 gm/ Sodium Chloride 524 mls @ 131 mls/hr IV ONETIME [facility] Last Admin: 09/06/19 10:43 Dose: 131 mls/hr Magnesium Sulfate 2 gm/ Premix 50 mls @ 25 mls/hr IV ONETIME ONE Stop: 09/07/19 09:14 Last Admin: 09/07/19 08:03 Dose: 25 mls/hr Ibuprofen (Motrin) 400 mg PO Q4H PRN PRN Reason: Pain Last Admin: 09/06/19 17:32 Dose: 400 mg Iopamidol (Isovue-370 (76%)) 100 ml IVPUSH ONETIME STA Stop: 09/04/19 17:02 Last Admin: 09/04/19 17:02 Dose: 100 ml Lorazepam (Ativan) 0 mg PO Q4H PRN; Protocol PRN Reason: CIWAA assessment Last Admin: 09/05/19 12:29 Dose: 1 mg Melatonin (Melatonin) 6 mg PO ONETIME PRN PRN Reason: Insomnia Last Admin: 09/05/19 22:15 Dose: 6 mg Morphine Sulfate (Morphine) 4 mg IVPUSH ONETIME ONE Stop: 09/04/19 15:54 Last Admin: 09/04/19 16:00 Dose: 4 mg Morphine Sulfate (Morphine) 2 mg IVPUSH ONETIME ONE Stop: 09/04/19 17:24 Last Admin: 09/04/19 17:28 Dose: 2 mg Morphine Sulfate (Morphine) 2 mg IVPUSH Q2H PRN PRN Reason: Pain (severe 7-10) Stop: 09/05/19 18:33 Last Admin: 09/04/19 20:08 Dose: 2 mg Ondansetron HCl (Zofran) 4 mg IVPUSH ONETIME ONE Stop: 09/04/19 15:54 Last Admin: 09/04/19 16:00 Dose: 4 mg Oxycodone HCl (Oxycodone) 5 mg PO Q4H PRN PRN Reason: Pain Last Admin: 09/06/19 22:09 Dose: 5 mg Sodium Chloride (Saline Flush) 10 ml FLUSH ASDIRECTED PRN PRN Reason: Keep Vein Open Last Admin: 09/04/19 16:06 Dose: 10 ml Sodium Chloride (Saline Flush) 2.5 ml FLUSH ASDIRECTED PRN PRN Reason: Keep Vein Open Last Admin: 09/04/19 16:06 Dose: 2.5 ml Sodium Phosphate (Neutra-Phos) 250 mg PO QID [facility] Stop: 09/07/19 06:01 Last Admin: 09/07/19 05:44 Dose: 250 mg Sodium Phosphate (Neutra-Phos) 250 mg PO QID [facility] Stop: 09/08/19 00:01 Last Admin: 09/07/19 13:07 Dose: 250 mg
== END 2019-09-07 13:20 | disposition home or self-care (01) | DRG 282 ==
LOC: MW.ED 15:39 → MW.MS 18:07 → OBSVTOIN 09-05 10:25 → MW.MS 09-05 11:04
PROVIDERS: ADMIT Internal Medicine; ATTEND Internal Medicine
DX: K85.90 Acute pancreatitis without necrosis or infection, unspecified (principal); F10.188 Alcohol abuse with other alcohol-induced disorder; R74.0 Nonspecific elevation of levels of transaminase and lactic acid dehydrogenase [LDH]; F17.200 Nicotine dependence, unspecified, uncomplicated; Z90.49 Acquired absence of other specified parts of digestive tract; F43.10 Post-traumatic stress disorder, unspecified; Z71.41 Alcohol abuse counseling and surveillance of alcoholic; Z79.899 Other long term (current) drug therapy
CPT/HCPCS: 36415; 71045; 71045-26; 74177; 74177-26; 76705; 76705-26; 80053; 80061; 81001; 82962; 83605; 83690; 83735; 84100; 84484; 85025; 85610; 93005; 96361; 96365; 96372; 96374; 96375; 96376; 99284; 99285-25; A9270-GY; G0378; J0610; J1170; J1650; J2270; J2405; J3411; J3475; J3480; J7030; J7040; J7042; J7050; Q9967

== ENCOUNTER 2020-01-23 11:02 | Inpatient (IN) | payer OTHER, BC ==
--- NOTE | 2020-01-23 11:38 | EDM.PDOC ---
ED HPI GENERAL MEDICAL PROBLEM - General Chief Complaint: General Stated Complaint: SPOKE WITH NURSE Time Seen by Provider: 01/23/20 11:33 Source of Information: Reports: Patient History Limitations: Reports: No Limitations - History of Present Illness INITIAL COMMENTS - FREE TEXT/NARRATIVE: HISTORY AND PHYSICAL: History of present illness: Patient is a 34-year-old female sent by [facility] for concern of acute alcoholic hepatitis. Patient drinks 2-3 bottles of wine per day. She had labs drawn at the [facility] yesterday due to concern of frequent bruising and loss of appetite/weight loss over the past 6 weeks. [facility] was concerned about jaundice, patient states she has notice a little yellowing in her eyes for the past couple of months at least. Patient denies any abdominal pain. She states she does get nauseous and has diarrhea when she tries to eat. Patient denies tylenol use. Patient does desire treatment for her alcohol use and would like inpatient detox. She denies any history of seizure disorder with alcohol withdrawal but states she has to drink right away in the mornings because she gets shaky. Patient has had about 6oz of wine this morning. Patient labs from 01/22/20: Bili 1.5 Alk phos 136 AST 556 ALT 178 GGT 467 PLT 71 INR 1.2 Review of systems: As per history of present illness and below otherwise all systems reviewed and negative. Past medical history: As per history of present illness and as reviewed below otherwise noncontributory. Surgical history: As per history of present illness and as reviewed below otherwise noncontributory. Social history: No reported history of drug or alcohol abuse. Family history: As per history of present illness and as reviewed below otherwise noncontributory. Physical exam: General: Patient sitting comfortably in no acute distress and nontoxic appearing HEENT: Atraumatic, normocephalic, pupils reactive, very mild yellowing of the eyes, mucous membranes moist, throat clear, neck supple, nontender, trachea midline. No meningeal signs. Lungs: Clear to auscultation, breath sounds equal bilaterally, chest nontender. Heart: S1S2, regular, negative for clicks, rubs, or overt murmur. Abdomen: Soft, nondistended, nontender. Negative for masses or hepatosplenomegaly. Negative for costovertebral tenderness. No rigidity, rebound , guarding. Pelvis: Stable nontender. Genitourinary: Deferred. Rectal: Deferred. Extremities: Ecchymosis to the upper extremities. Atraumatic, negative for cords or calf pain. Neurovascular unremarkable. Neuro: Awake, alert, oriented. Cranial nerves II through XII unremarkable. Cerebellum unremarkable. Motor and sensory unremarkable throughout. Exam nonfocal. Notes: Diagnostics: CBC, CMP, PT/INR Therapeutics: 1L NS IV Banana bag Prescriptions: none Impression: Acute alcoholic hepatitis, alcohol abuse Plan: Discussed with Dr. Fuentes, patient will be admitted to observation for alcohol detox. Definitive disposition and diagnosis as appropriate pending reevaluation and review of above. - Related Data Allergies Allergy/AdvReac Type Severity Reaction Status Date / Time benzoyl peroxide Allergy Hives Verified 01/23/20 11:17 Home Meds: Home Meds busPIRone [Buspar] 01/23/20 [History] Past Medical History Gastrointestinal History: Reports: Pancreatitis [employer] History: Reports: , Spontaneous Psychiatric History: Reports: Anxiety, Panic Attack - Infectious Disease History Infectious Disease History: Reports: Chicken Pox - Past Surgical History HEENT Surgical History: Reports: LASIK GI Surgical History: Reports: Cholecystectomy, Other (See Below) Other GI Surgeries/Procedures: Gastric byipass Social & Family History - Family History Family Medical History: Noncontributory - Tobacco Use Smoking Status *Q: Current Every Day Smoker Years of Tobacco use: 10 Packs/Tins Daily: 0.3 - Caffeine Use Caffeine Use: Reports: Coffee - Alcohol Use Days Per Week of Alcohol Use: 7 Number of Drinks Per Day: 10 Total Drinks Per Week: 70 Date of Last Drink: 01/23/20 - Recreational Drug Use Recreational Drug Use: No ED ROS GENERAL - Review of Systems Review Of Systems: Comprehensive ROS is negative, except as noted in HPI. ED EXAM, GENERAL - Physical Exam Exam: See Below (see dictation) Course - Vital Signs Last Recorded V/S: Last Vital Signs Temp 97.6 F 01/23/20 11:17 Pulse 118 H 01/23/20 12:00 Resp 18 01/23/20 12:00 BP 110/82 01/23/20 12:00 Pulse Ox 98 01/23/20 12:00 - Orders/Labs/Meds Orders: Active Orders 24 hr Category Date Time Status MVI, Adult with Vitamin K [Infuvite Adult] 10 ml Med 01/23/20 12:55 Active Thiamine [Vitamin B-1] 100 mg Folic Acid 1 mg Sodium Chloride 0.9% [Normal Saline] 1,000 ml IV ONETIME Medication Orders Multivitamins/Minerals 10 ml/Thiamine HCl 100 mg/ Folic Acid 1 mg/ Sodium Chloride 1,011.2 mls @ 150 mls/hr IV ONETIME ONE Stop: 01/23/20 19:39 Labs: Laboratory Tests 01/23/20 01/23/20 01/23/20 Range/Units 11:30 11:30 11:30 WBC 4.69 (4.0-11.0) K/uL RBC 3.68 L (4.30-5.90) M/uL Hgb 12.4 (12.0-16.0) g/dL Hct 37.0 (36.0-46.0) % MCV 100.5 H (80.0-98.0) fL MCH 33.7 H (27.0-32.0) pg MCHC 33.5 (31.0-37.0) g/dL RDW Std Deviation 57.2 (28.0-62.0) fl RDW Coeff of Yousuf 15 (11.0-15.0) % Plt Count 124 L (150-400) K/uL MPV 12.20 H (7.40-12.00) fL Neut % (Auto) 59.1 (48.0-80.0) % Lymph % (Auto) 23.2 (16.0-40.0) % Lar[place]ie % (Auto) 14.7 (0.0-15.0) % Eos % (Auto) 1.5 (0.0-7.0) % Baso % (Auto) 1.5 (0.0-1.5) % Neut # (Auto) 2.8 (1.4-5.7) K/uL Lymph # (Auto) 1.1 (0.6-2.4) K/uL [place] # (Auto) 0.7 (0.0-0.8) K/uL Eos # (Auto) 0.1 (0.0-0.7) K/uL Baso # (Auto) 0.1 (0.0-0.1) K/uL Nucleated RBC % 0.0 /100WBC Nucleated RBCs # 0 K/uL INR 1.30 Sodium (136-145) mmol/L Potassium (3.5-5.1) mmol/L Chloride (98-107) mmol/L Carbon Dioxide (21.0-32.0) mmol/L BUN (7.0-18.0) mg/dL Creatinine (0.6-1.0) mg/dL Est Cr Clr Drug Dosing mL/min Estimated GFR (MDRD) ml/min Glucose (74-106) mg/dL Calcium (8.5-10.1) mg/dL Total Bilirubin (0.2-1.0) mg/dL AST (15-37) IU/L ALT (14-63) IU/L Alkaline Phosphatase (46-116) U/L Total Protein (6.4-8.2) g/dL Albumin (3.4-5.0) g/dL Globulin (2.6-4.0) g/dL Albumin/Globulin Ratio (0.9-1.6) Urine Color YELLOW Urine Appearance HAZY Urine pH 6.0 (5.0-8.0) Ur Specific Whiting 1.025 (1.001-1.035) Urine Protein 30 H (NEGATIVE) mg/dL Urine Glucose (UA) NEGATIVE (NEGATIVE) mg/dL Urine Ketones TRACE H (NEGATIVE) mg/dL Urine Occult Blood TRACE-LYSED H (NEGATIVE) Urine Nitrite NEGATIVE (NEGATIVE) Urine Bilirubin SMALL H (NEGATIVE) Urine Ictotest NEGATIVE Urine Urobilinogen 0.2 (<2.0) EU/dL Ur Leukocyte Esterase NEGATIVE (NEGATIVE) U Hyaline Cast (Auto) 0-3 (0-2/LPF) Urine RBC 0-4 (0-2/HPF) Urine WBC 0-3 (0-5/HPF) Ur Epithelial Cells FEW (NONE-FEW) Urine Bacteria FEW (NEGATIVE) Urine Mucus LIGHT (NONE-MOD) 01/23/20 Range/Units 12:10 WBC (4.0-11.0) K/uL RBC (4.30-5.90) M/uL Hgb (12.0-16.0) g/dL Hct (36.0-46.0) % MCV (80.0-98.0) fL MCH (27.0-32.0) pg MCHC (31.0-37.0) g/dL RDW Std Deviation (28.0-62.0) fl RDW Coeff of Yousuf (11.0-15.0) % Plt Count (150-400) K/uL MPV (7.40-12.00) fL Neut % (Auto) (48.0-80.0) % Lymph % (Auto) (16.0-40.0) % Lar[place]ie % (Auto) (0.0-15.0) % Eos % (Auto) (0.0-7.0) % Baso % (Auto) (0.0-1.5) % Neut # (Auto) (1.4-5.7) K/uL Lymph # (Auto) (0.6-2.4) K/uL [place] # (Auto) (0.0-0.8) K/uL Eos # (Auto) (0.0-0.7) K/uL Baso # (Auto) (0.0-0.1) K/uL Nucleated RBC % /100WBC Nucleated RBCs # K/uL INR Sodium 142 (136-145) mmol/L Potassium 4.2 (3.5-5.1) mmol/L Chloride 100 (98-107) mmol/L Carbon Dioxide 26.9 (21.0-32.0) mmol/L BUN 5 L (7.0-18.0) mg/dL Creatinine 0.8 (0.6-1.0) mg/dL Est Cr Clr Drug Dosing 101.60 mL/min Estimated GFR (MDRD) > 60.0 ml/min Glucose 88 (74-106) mg/dL Calcium 8.9 (8.5-10.1) mg/dL Total Bilirubin 1.6 H (0.2-1.0) mg/dL AST 718 H (15-37) IU/L ALT 249 H (14-63) IU/L Alkaline Phosphatase 138 H (46-116) U/L Total Protein 7.4 (6.4-8.2) g/dL Albumin 3.8 (3.4-5.0) g/dL Globulin 3.6 (2.6-4.0) g/dL Albumin/Globulin Ratio 1.1 (0.9-1.6) Urine Color Urine Appearance Urine pH (5.0-8.0) Ur Specific Whiting (1.001-1.035) Urine Protein (NEGATIVE) mg/dL Urine Glucose (UA) (NEGATIVE) mg/dL Urine Ketones (NEGATIVE) mg/dL Urine Occult Blood (NEGATIVE) Urine Nitrite (NEGATIVE) Urine Bilirubin (NEGATIVE) Urine Ictotest Urine Urobilinogen (<2.0) EU/dL Ur Leukocyte Esterase (NEGATIVE) U Hyaline Cast (Auto) (0-2/LPF) Urine RBC (0-2/HPF) Urine WBC (0-5/HPF) Ur Epithelial Cells (NONE-FEW) Urine Bacteria (NEGATIVE) Urine Mucus (NONE-MOD) Meds: Medications Generic Name Dose Route Start Last Admin Trade Name Freq PRN Reason Stop Dose Admin Multivitamins/Minerals 10 ml/ 1,011.2 mls @ 150 mls/hr 01/23/20 12:55 Thiamine HCl 100 mg/ Folic IV 01/23/20 19:39 Acid 1 mg/ Sodium Chloride ONETIME ONE Discontinued Medications Generic Name Dose Route Start Last Admin Trade Name Freq PRN Reason Stop Dose Admin Sodium Chloride 1,000 mls @ 999 mls/hr 01/23/20 11:47 01/23/20 12:00 Normal Saline IV 01/23/20 12:47 999 mls/hr STAT ONE Administration Sodium Chloride 1,000 mls @ 999 mls/hr 01/23/20 11:48 Normal Saline IV 01/23/20 12:48 STAT ONE Departure - Departure Time of Disposition: 13:11 Disposition: Refer to Observation Condition: Good Clinical Impression: Alcohol abuse, Acute alcoholic hepatitis - Discharge Information Referrals: [facility] [Primary Care Provider] - Forms: ED Department Discharge Sepsis Event Note - Evaluation Sepsis Screening Result: No Definite Risk - Focused Exam Vital Signs: Vital Signs Temp Pulse Resp BP Pulse Ox 01/23/20 12:00 118 H 18 110/82 98 01/23/20 11:17 97.6 F 109 H 18 118/97 H 96 Date Exam was Performed: 01/23/20 Time Exam was Performed: 13:07 - My Orders Last 24 Hours: My Active Orders 01/23/20 12:55 MVI, Adult with Vitamin K [Infuvite Adult] 10 ml Thiamine [Vitamin B-1] 100 mg Folic Acid 1 mg Sodium Chloride 0.9% [Normal Saline] 1,000 ml IV ONETIME - Assessment/Plan Last 24 Hours: My Active Orders 01/23/20 12:55 MVI, Adult with Vitamin K [Infuvite Adult] 10 ml Thiamine [Vitamin B-1] 100 mg Folic Acid 1 mg Sodium Chloride 0.9% [Normal Saline] 1,000 ml IV ONETIME
[2020-01-23] MEDS ORDERED: Sodium Chloride 0.9% 1,000 ML IV ONE ×2 (11:47→11:48)
[2020-01-23 12:53] LABS: BLOOD UREA NITROGEN,BUN 5 mg/dL (7.0-18.0); CARBON DIOXIDE,CO2 26.9 mmol/L (21.0-32.0); CHLORIDE,CL 100 mmol/L (98-107); GLUCOSE RANDOM 88 mg/dL (74-106); POTASSIUM,K 4.2 mmol/L (3.5-5.1); SODIUM,NA 142 mmol/L (136-145)
[2020-01-23] MEDS ORDERED: MVI, Adult with Vitamin K 10 ML, Thiamine 100 MG, Folic Acid 1 MG in Sodium Chloride 0.... IV ONE ×4 (12:55)
[2020-01-23] MEDS ORDERED: Ondansetron 4 MG/2 ML SDV IVPUSH PRN (13:52)
[2020-01-23] MEDS ORDERED: Morphine 2 MG/ML SYRINGE IVPUSH PRN ×2 (13:52→14:27)
[2020-01-23] MEDS: Pantoprazole 40 MG Vial IV SCH (14:52)
[2020-01-23] MEDS: Dextrose 5%-0.9% NaCl 1,000 ML IV SCH (14:53)
--- NOTE | 2020-01-23 15:05 | PCM.HP.2 ---
H&P History of Present Illness - General Date of Service: 01/23/20 Admit Problem/Dx: Admission Diagnosis/Problem Admission Diagnosis/Problem Alcohol abuse Source of Information: Patient, Old Records History Limitations: Reports: No Limitations - History of Present Illness Initial Comments - Free Text/Narative: This 34-year-old female with PMH of alcohol abuse, pancreatitis, PTSD and Gastric bypass presents to the ER today [facility]. She reports that she has been noticing frequent bruising on her body and a large hematoma to her left forearm after a fall. She reports that she has been drinking 2 to 3 days bottles of wine daily for the last month or so. She reports she has been in and out of treatment in the past and has done through detox multiple times. She denies seizures with withdrawal, does note tremors, auditory hallucinations and diaphoresis and anxiety. She recently was hospitalized in August 2019 for acute alcoholic pancreatitis. She does have a history of gallstones and had a subsequent cholecystectomy. She reports current epigastric abdominal pain, nausea and vomiting after she eats. Denies diarrhea, noted to have a recent white stool x 1 then stools have been brown and mikki in texture. No black or blood stools and no coffee ground emsis. She reports she has not been eating much for the last 3 weeks. She states she has not been eating much because she has been at home alone with no triggers for family members telling her to eat. She denies any Tylenol use. She denies any recreational drug use. She reports occasional tobacco use, maybe a few cigarettes a night but denies needing nicotine patch during hospitalization. She reports she has increased drinking recently as support has been low, had to move out of town for a job and her children are out of school and not in the home either. She rpeorts moving here from [place] has limited her access to [place] mental health support and many of her resources are telehealth and she hasn't felt like this is benefiting her. In the ED she was found to have thrombocytopenia, 124,000 hgb 12.4. INR 1.3, Na 142, K+ 4.2 Bilirubin 1.6, AST 718, ALT 249, alk phos 138 and lipase 736. Tylenol level under 2.0. She will be admitted for alcoholic hepatitis and detox. [facility] - Related Data Allergies/Adverse Reactions: Allergies Allergy/AdvReac Type Severity Reaction Status Date / Time benzoyl peroxide Allergy Hives Verified 01/23/20 14:01 Home Medications: Home Meds busPIRone [Buspar] 01/23/20 [History] Past Medical History Cardiovascular History: Reports: None. Denies: CAD, High Cholesterol, Hypertension Respiratory History: Reports: None. Denies: Asthma Gastrointestinal History: Reports: Pancreatitis [employer]IOR [employer] TECH[employer]IAN History: Reports: , Spontaneous Musculoskeletal History: Reports: None Neurological History: Reports: None. Denies: CVA, TIA Psychiatric History: Reports: Anxiety, Panic Attack, PTSD Endocrine/Metabolic History: Reports: None - Infectious Disease History Infectious Disease History: Reports: Chicken Pox - Past Surgical History HEENT Surgical History: Reports: LASIK GI Surgical History: Reports: Cholecystectomy, Other (See Below) Other GI Surgeries/Procedures: Gastric byipass Social & Family History - Family History Family Medical History: Noncontributory - Tobacco Use Smoking Status *Q: Current Every Day Smoker Years of Tobacco use: 10 Packs/Tins Daily: 0.5 - Caffeine Use Caffeine Use: Reports: Coffee - Alcohol Use Days Per Week of Alcohol Use: 7 Number of Drinks Per Day: 10 Total Drinks Per Week: 70 Date of Last Drink: 01/23/20 Alcohol Use Frequency: Daily - Recreational Drug Use Recreational Drug Use: No - Living Situation & Occupation Living situation: Reports: Occupation: Employed H&P Review of Systems - Review of Systems: Review Of Systems: See Below General: Reports: No Symptoms. Denies: Fever, Chills HEENT: Reports: No Symptoms. Denies: Headaches, Sinus Congestion Pulmonary: Reports: No Symptoms. Denies: Shortness of Breath Cardiovascular: Reports: No Symptoms. Denies: Chest Pain, Lightheadedness Gastrointestinal: Reports: Abdominal Pain (epigastric pain), Nausea, Vomiting, Other (white stool x 1 at home). Denies: Black Stool, Bloody Stool, Diarrhea Genitourinary: Reports: No Symptoms. Denies: Dysuria, Frequency Musculoskeletal: Reports: No Symptoms Skin: Reports: Bruising Psychiatric: Reports: Anxiety. Denies: Suicidal Ideation, Hallucinations ( Auditory), Hallucinations (Visual) Neurological: Reports: No Symptoms Hematologic/Lymphatic: Reports: No Symptoms Immunologic: Reports: No Symptoms Exam - Exam Exam: See Below - Vital Signs Vital Signs: Last Vital Signs Temp 98.7 F 01/23/20 13:50 Pulse 92 01/23/20 13:50 Resp 16 01/23/20 13:50 BP 138/79 01/23/20 13:50 Pulse Ox 96 01/23/20 13:50 Weight: 73.5 kg - Exam General: Alert, Oriented HEENT: Scleral Icterus Neck: Supple, Trachea Midline Lungs: Clear to Auscultation, Normal Respiratory Effort Cardiovascular: Regular Rate, Regular Rhythm GI/Abdominal Exam: Normal Bowel Sounds, Soft, No Distention, Tender (epigastric and RUQ) Back Exam: Normal Inspection, Full Range of Motion Extremities: Normal Inspection, Normal Range of Motion, Non-Tender Skin: Other (brusing noted all over body, except for face and anterior trunk. Moderate sized hematoma noted to L forearm she reports after she fell, bruising to this site has improved.) Neuro Extensive - Mental Status: Alert, Oriented x3 Neuro Extensive - Motor, Sensory, Reflexes: CN II-XII Intact, Tremor Psychiatric: Alert, Normal Affect, Normal Mood - Patient Data Lab Results Last 24 hrs: Laboratory Results - last 24 hr 01/23/20 01/23/20 01/23/20 Range/Units 11:30 11:30 11:30 WBC 4.69 (4.0-11.0) K/uL RBC 3.68 L (4.30-5.90) M/uL Hgb 12.4 (12.0-16.0) g/dL Hct 37.0 (36.0-46.0) % MCV 100.5 H (80.0-98.0) fL MCH 33.7 H (27.0-32.0) pg MCHC 33.5 (31.0-37.0) g/dL RDW Std Deviation 57.2 (28.0-62.0) fl RDW Coeff of Yousuf 15 (11.0-15.0) % Plt Count 124 L (150-400) K/uL MPV 12.20 H (7.40-12.00) fL Neut % (Auto) 59.1 (48.0-80.0) % Lymph % (Auto) 23.2 (16.0-40.0) % [place] % (Auto) 14.7 (0.0-15.0) % Eos % (Auto) 1.5 (0.0-7.0) % Baso % (Auto) 1.5 (0.0-1.5) % Neut # (Auto) 2.8 (1.4-5.7) K/uL Lymph # (Auto) 1.1 (0.6-2.4) K/uL [place] # (Auto) 0.7 (0.0-0.8) K/uL Eos # (Auto) 0.1 (0.0-0.7) K/uL Baso # (Auto) 0.1 (0.0-0.1) K/uL Nucleated RBC % 0.0 /100WBC Nucleated RBCs # 0 K/uL INR 1.30 Sodium (136-145) mmol/L Potassium (3.5-5.1) mmol/L Chloride (98-107) mmol/L Carbon Dioxide (21.0-32.0) mmol/L BUN (7.0-18.0) mg/dL Creatinine (0.6-1.0) mg/dL Est Cr Clr Drug Dosing mL/min Estimated GFR (MDRD) ml/min Glucose (74-106) mg/dL Calcium (8.5-10.1) mg/dL Phosphorus (2.6-4.7) mg/dL Magnesium (1.8-2.4) mg/dL Total Bilirubin (0.2-1.0) mg/dL AST (15-37) IU/L ALT (14-63) IU/L Alkaline Phosphatase (46-116) U/L Total Protein (6.4-8.2) g/dL Albumin (3.4-5.0) g/dL Globulin (2.6-4.0) g/dL Albumin/Globulin Ratio (0.9-1.6) Lipase (73-393) U/L Urine Color YELLOW Urine Appearance HAZY Urine pH 6.0 (5.0-8.0) Ur Specific Onset 1.025 (1.001-1.035) Urine Protein 30 H (NEGATIVE) mg/dL Urine Glucose (UA) NEGATIVE (NEGATIVE) mg/dL Urine Ketones TRACE H (NEGATIVE) mg/dL Urine Occult Blood TRACE-LYSED H (NEGATIVE) Urine Nitrite NEGATIVE (NEGATIVE) Urine Bilirubin SMALL H (NEGATIVE) Urine Ictotest NEGATIVE Urine Urobilinogen 0.2 (<2.0) EU/dL Ur Leukocyte Esterase NEGATIVE (NEGATIVE) U Hyaline Cast (Auto) 0-3 (0-2/LPF) Urine RBC 0-4 (0-2/HPF) Urine WBC 0-3 (0-5/HPF) Ur Epithelial Cells FEW (NONE-FEW) Urine Bacteria FEW (NEGATIVE) Urine Mucus LIGHT (NONE-MOD) Acetaminophen ug/mL 01/23/20 01/23/20 01/23/20 Range/Units 12:10 12:10 12:10 WBC (4.0-11.0) K/uL RBC (4.30-5.90) M/uL Hgb (12.0-16.0) g/dL Hct (36.0-46.0) % MCV (80.0-98.0) fL MCH (27.0-32.0) pg MCHC (31.0-37.0) g/dL RDW Std Deviation (28.0-62.0) fl RDW Coeff of Yousuf (11.0-15.0) % Plt Count (150-400) K/uL MPV (7.40-12.00) fL Neut % (Auto) (48.0-80.0) % Lymph % (Auto) (16.0-40.0) % [place] % (Auto) (0.0-15.0) % Eos % (Auto) (0.0-7.0) % Baso % (Auto) (0.0-1.5) % Neut # (Auto) (1.4-5.7) K/uL Lymph # (Auto) (0.6-2.4) K/uL [place] # (Auto) (0.0-0.8) K/uL Eos # (Auto) (0.0-0.7) K/uL Baso # (Auto) (0.0-0.1) K/uL Nucleated RBC % /100WBC Nucleated RBCs # K/uL INR Sodium 142 (136-145) mmol/L Potassium 4.2 (3.5-5.1) mmol/L Chloride 100 (98-107) mmol/L Carbon Dioxide 26.9 (21.0-32.0) mmol/L BUN 5 L (7.0-18.0) mg/dL Creatinine 0.8 (0.6-1.0) mg/dL Est Cr Clr Drug Dosing 101.60 mL/min Estimated GFR (MDRD) > 60.0 ml/min Glucose 88 (74-106) mg/dL Calcium 8.9 (8.5-10.1) mg/dL Phosphorus (2.6-4.7) mg/dL Magnesium (1.8-2.4) mg/dL Total Bilirubin 1.6 H (0.2-1.0) mg/dL AST 718 H (15-37) IU/L ALT 249 H (14-63) IU/L Alkaline Phosphatase 138 H (46-116) U/L Total Protein 7.4 (6.4-8.2) g/dL Albumin 3.8 (3.4-5.0) g/dL Globulin 3.6 (2.6-4.0) g/dL Albumin/Globulin Ratio 1.1 (0.9-1.6) Lipase 736 H (73-393) U/L Urine Color Urine Appearance Urine pH (5.0-8.0) Ur Specific Onset (1.001-1.035) Urine Protein (NEGATIVE) mg/dL Urine Glucose (UA) (NEGATIVE) mg/dL Urine Ketones (NEGATIVE) mg/dL Urine Occult Blood (NEGATIVE) Urine Nitrite (NEGATIVE) Urine Bilirubin (NEGATIVE) Urine Ictotest Urine Urobilinogen (<2.0) EU/dL Ur Leukocyte Esterase (NEGATIVE) U Hyaline Cast (Auto) (0-2/LPF) Urine RBC (0-2/HPF) Urine WBC (0-5/HPF) Ur Epithelial Cells (NONE-FEW) Urine Bacteria (NEGATIVE) Urine Mucus (NONE-MOD) Acetaminophen <2.0 ug/mL 01/23/20 Range/Units 12:10 WBC (4.0-11.0) K/uL RBC (4.30-5.90) M/uL Hgb (12.0-16.0) g/dL Hct (36.0-46.0) % MCV (80.0-98.0) fL MCH (27.0-32.0) pg MCHC (31.0-37.0) g/dL RDW Std Deviation (28.0-62.0) fl RDW Coeff of Yousuf (11.0-15.0) % Plt Count (150-400) K/uL MPV (7.40-12.00) fL Neut % (Auto) (48.0-80.0) % Lymph % (Auto) (16.0-40.0) % [place] % (Auto) (0.0-15.0) % Eos % (Auto) (0.0-7.0) % Baso % (Auto) (0.0-1.5) % Neut # (Auto) (1.4-5.7) K/uL Lymph # (Auto) (0.6-2.4) K/uL [place] # (Auto) (0.0-0.8) K/uL Eos # (Auto) (0.0-0.7) K/uL Baso # (Auto) (0.0-0.1) K/uL Nucleated RBC % /100WBC Nucleated RBCs # K/uL INR Sodium (136-145) mmol/L Potassium (3.5-5.1) mmol/L Chloride (98-107) mmol/L Carbon Dioxide (21.0-32.0) mmol/L BUN (7.0-18.0) mg/dL Creatinine (0.6-1.0) mg/dL Est Cr Clr Drug Dosing mL/min Estimated GFR (MDRD) ml/min Glucose (74-106) mg/dL Calcium (8.5-10.1) mg/dL Phosphorus 4.4 (2.6-4.7) mg/dL Magnesium 1.8 (1.8-2.4) mg/dL Total Bilirubin (0.2-1.0) mg/dL AST (15-37) IU/L ALT (14-63) IU/L Alkaline Phosphatase (46-116) U/L Total Protein (6.4-8.2) g/dL Albumin (3.4-5.0) g/dL Globulin (2.6-4.0) g/dL Albumin/Globulin Ratio (0.9-1.6) Lipase (73-393) U/L Urine Color Urine Appearance Urine pH (5.0-8.0) Ur Specific Onset (1.001-1.035) Urine Protein (NEGATIVE) mg/dL Urine Glucose (UA) (NEGATIVE) mg/dL Urine Ketones (NEGATIVE) mg/dL Urine Occult Blood (NEGATIVE) Urine Nitrite (NEGATIVE) Urine Bilirubin (NEGATIVE) Urine Ictotest Urine Urobilinogen (<2.0) EU/dL Ur Leukocyte Esterase (NEGATIVE) U Hyaline Cast (Auto) (0-2/LPF) Urine RBC (0-2/HPF) Urine WBC (0-5/HPF) Ur Epithelial Cells (NONE-FEW) Urine Bacteria (NEGATIVE) Urine Mucus (NONE-MOD) Acetaminophen ug/mL Result Diagrams: 01/23/20 11:30 01/23/20 12:10 Sepsis Event Note - Evaluation Sepsis Screening Result: No Definite Risk - Focused Exam Vital Signs: Vital Signs Temp Pulse Resp BP Pulse Ox 01/23/20 13:50 98.7 F 92 16 138/79 96 01/23/20 13:30 90 18 136/86 98 01/23/20 13:00 92 18 131/84 97 01/23/20 12:30 92 18 125/83 98 01/23/20 12:00 118 H 18 110/82 98 01/23/20 11:17 97.6 F 109 H 18 118/97 H 96 Date Exam was Performed: 01/23/20 Time Exam was Performed: 15:22 - Problem List (1) Acute alcoholic hepatitis SNOMED Code(s): 8662391 ICD Code: K70.10 - ALCOHOLIC HEPATITIS WITHOUT ASCITES Status: Acute Current Visit: Yes (2) Elevated INR SNOMED Code(s): 914636794 ICD Code: R79.1 - ABNORMAL COAGULATION PROFILE Status: Acute Current Visit: Yes (3) Pancreatitis SNOMED Code(s): 37044133 ICD Code: K85.90 - ACUTE PANCREATITIS WITHOUT NECROSIS OR INFECTION, UNSP Status: Acute Current Visit: No (4) PTSD (post-traumatic stress disorder) SNOMED Code(s): 74234984 ICD Code: F43.10 - POST-TRAUMATIC STRESS DISORDER, UNSPECIFIED Status: Chronic Current Visit: Yes (5) Hx of gastric bypass SNOMED Code(s): 847950609 ICD Code: Z98.84 - BARIATRIC SURGERY STATUS Status: Chronic Current Visit : Yes (6) Alcohol abuse SNOMED Code(s): 02694659 ICD Code: F10.10 - ALCOHOL ABUSE, UNCOMPLICATED Status: Chronic Current Visit: Yes Problem List Initiated/Reviewed/Updated: Yes Orders Last 24hrs: Active Orders 24 hr Category Date Time Status Admission Status [Patient Status] [ADT] Routine ADT 01/23/20 14:25 Ordered Blood Glucose Check, Bedside [RC] Q6H Care 01/23/20 13:51 Active CIWAA Assessment [RC] Q4H Care 01/23/20 13:54 Active Height and Weight [RC] DAILY Care 01/23/20 13:52 Active Intake and Output [RC] QSHIFT Care 01/23/20 13:53 Active Oxygen Therapy [RC] PRN Care 01/23/20 13:52 Active Up With Assistance [RC] ASDIRECTED Care 01/23/20 13:52 Active VTE/DVT Education [RC] PER UNIT ROUTINE Care 01/23/20 13:52 Active Vital Signs [RC] Q4H Care 01/23/20 13:52 Active Nothing per Oral Now Diet [DIET] Diet 01/23/20 Lunch Active Abdomen Ltd [US] Urgent Exams 01/23/20 13:50 Ordered CBC WITH AUTO DIFF [HEME] AM Lab 01/24/20 05:11 Ordered CBC WITH AUTO DIFF [HEME] AM Lab 01/25/20 05:11 Ordered CBC WITH AUTO DIFF [HEME] AM Lab 01/26/20 05:11 Ordered CBC WITH AUTO DIFF [HEME] AM Lab 01/27/20 05:11 Ordered COMPREHENSIVE METABOLIC PN,CMP [CHEM] AM Lab 01/24/20 05:11 Ordered COMPREHENSIVE METABOLIC PN,CMP [CHEM] AM Lab 01/25/20 05:11 Ordered COMPREHENSIVE METABOLIC PN,CMP [CHEM] AM Lab 01/26/20 05:11 Ordered COMPREHENSIVE METABOLIC PN,CMP [CHEM] AM Lab 01/27/20 05:11 Ordered HEPATITIS PANEL (4) [REF] Urgent Lab 01/23/20 14:32 Ordered INR,PT,PROTHROMBIN TIME [COAG] AM Lab 01/24/20 05:11 Ordered INR,PT,PROTHROMBIN TIME [COAG] AM Lab 01/25/20 05:11 Ordered INR,PT,PROTHROMBIN TIME [COAG] AM Lab 01/26/20 05:11 Ordered INR,PT,PROTHROMBIN TIME [COAG] AM Lab 01/27/20 05:11 Ordered LIPASE [CHEM] AM Lab 01/24/20 05:11 Ordered MAGNESIUM [CHEM] AM Lab 01/24/20 05:11 Ordered MAGNESIUM [CHEM] AM Lab 01/25/20 05:11 Ordered MAGNESIUM [CHEM] AM Lab 01/26/20 05:11 Ordered MAGNESIUM [CHEM] AM Lab 01/27/20 05:11 Ordered PHOSPHORUS [CHEM] AM Lab 01/24/20 05:11 Ordered PHOSPHORUS [CHEM] AM Lab 01/25/20 05:11 Ordered PHOSPHORUS [CHEM] AM Lab 01/26/20 05:11 Ordered PHOSPHORUS [CHEM] AM Lab 01/27/20 05:11 Ordered Dextrose 5%-0.9% NaCl [Dextrose 5%-Normal Saline] 1,000 Med 01/23/20 14:30 Ordered ml IV Q20H Folic Acid Med 01/24/20 09:00 Active 1 mg SUBCUT DAILY LORazepam [Ativan] Med 01/23/20 13:54 Active See Protocol IVPUSH Q4H PRN MVI, Adult with Vitamin K [Infuvite Adult] 10 ml Med 01/23/20 12:55 Active Thiamine [Vitamin B-1] 100 mg Folic Acid 1 mg Sodium Chloride 0.9% [Normal Saline] 1,000 ml IV ONETIME Morphine Med 01/23/20 14:27 Ordered 2 mg IVPUSH Q4H PRN Ondansetron [Zofran] Med 01/23/20 13:52 Active 4 mg IVPUSH Q4H PRN Pantoprazole [ProTONIX IV] Med 01/23/20 14:00 Active 40 mg IV Q24H Sodium Chloride 0.9% [Normal Saline] 1,000 ml Med 01/23/20 14:45 Ordered IV Q8H Thiamine [Vitamin B-1] 100 mg Med 01/24/20 09:00 Active Sodium Chloride 0.9% [Normal Saline] 100 ml IV DAILY Resuscitation Status Routine Resus Stat 01/23/20 13:52 Ordered Medication Orders Folic Acid (Folic Acid) 1 mg SUBCUT DAILY NEVAEH Multivitamins/Minerals 10 ml/Thiamine HCl 100 mg/ Folic Acid 1 mg/ Sodium Chloride 1,011.2 mls @ 150 mls/hr IV ONETIME ONE Stop: 01/23/20 19:39 Last Admin: 01/23/20 14:07 Dose: 150 mls/hr Thiamine HCl 100 mg/ Sodium (Chloride) 101 mls @ 202 mls/hr IV DAILY NEVAEH Dextrose/Sodium Chloride (Dextrose 5%-Normal Saline) 1,000 mls @ 50 mls/hr IV Q20H [facility]EVAE[facility] Last Admin: 01/23/20 14:53 Dose: 50 mls/hr Sodium Chloride (Normal Saline) 1,000 mls @ 125 mls/hr IV Q8H [facility] Lorazepam (Ativan) 0 mg IVPUSH Q4H PRN; Protocol PRN Reason: CIWAA Morphine Sulfate (Morphine) 2 mg IVPUSH Q4H PRN PRN Reason: Pain (severe 7-10) Ondansetron HCl (Zofran) 4 mg IVPUSH Q4H PRN PRN Reason: Nausea Pantoprazole Sodium (Protonix Iv) 40 mg IV Q24H [facility] Last Admin: 01/23/20 14:52 Dose: 40 mg Assessment/Plan Comment:: This 34 year old female admitted for acute alcoholic hepatitis and pancreatitis 1. Acute alcoholic hepatitis: - Tylenol level negative, reports she doesn't use this at all - Hepatitis panel pending. - RUQ US pending - Monitor LFTS and INR in am. - Counseled on sobriety, will need community resources on discharge - Will monitor blood sugars, as hx of hypoglycemia is noted. - Monitor thrombocytopenia, no active bleeding noted. 2. Pancreatitis: - Given 2 L of IVF in ED along with MVI in 1 L NS - Continue NS at 125 along with D5 NS at 50 ml, for continuously IVF rate of 175 mls/hr - NPO, ice chips ok. - Recheck lipase in am - RUQ US pending 3. Alcohol abuse and detox: - Thiamine and folic acid supplementation daily - CIWAA protocol with Ativan - Monitor electrolytes daily and supplement as needed VTE prophylaxis: ambulation GI prophylaxis: Protonix daily Dispo: Change to inpatient status, as stay will likely be greater than 2 midnights. - Mortality Measure Prognosis:: Good
--- NOTE | 2020-01-23 15:35 | US ---
Limited abdominal ultrasound: Multiple real-time images were obtained of the upper right abdomen. Liver is generous in size and echogenic compatible with fatty infiltration. Previous cholecystectomy is noted. No biliary duct dilatation is seen. Right kidney shows no hydronephrosis or mass and has a length of 12.2 cm. Visualized pancreas shows no discrete abnormality. Inferior vena cava is patent. Impression: 1. Changes within the liver having the appearance of fatty infiltration. 2. No biliary duct dilatation is seen. Prior cholecystectomy. 3. No additional abnormality is seen on right upper quadrant abdominal ultrasound. Diagnostic code #2 This report was dictated in MDT
[2020-01-23] MEDS: Sodium Chloride 0.9% 1,000 ML IV SCH ×2 (17:29→21:04)
[2020-01-23] MEDS: LORazepam 2 MG/ML SDV IVPUSH PRN ×2 (20:03→23:31)
[2020-01-24] MEDS: Sodium Chloride 0.9% 1,000 ML IV SCH ×5 (00:28→21:24)
[2020-01-24] MEDS: LORazepam 2 MG/ML SDV IVPUSH PRN ×4 (05:17→19:57)
[2020-01-24 06:46] LABS: BLOOD UREA NITROGEN,BUN 5 mg/dL (7.0-18.0); CARBON DIOXIDE,CO2 28.5 mmol/L (21.0-32.0); CHLORIDE,CL 103 mmol/L (98-107); GLUCOSE RANDOM 90 mg/dL (74-106); LIPASE 634 U/L (73-393); POTASSIUM,K 3.3 mmol/L (3.5-5.1); SODIUM,NA 141 mmol/L (136-145)
[2020-01-24] MEDS ORDERED: Magnesium Sulfate/Water 4 GM in Premix Bag 1 BAG IV ONE (07:53)
[2020-01-24] MEDS: Folic Acid 50 MG/10 ML MDV SUBCUT SCH (08:15)
[2020-01-24] MEDS ORDERED: Potassium Phosphates 15 MMOLE in Sodium Chloride 0.9% 250 ML IV ONE ×2 (08:33→08:45)
[2020-01-24] MEDS ORDERED: oxyCODONE 5 MG Tab PO PRN (09:39)
--- NOTE | 2020-01-24 09:44 | PCM.PN ---
- General Info Date of Service: 01/24/20 Admission Dx/Problem (Free Text): Admission Diagnosis/Problem Admission Diagnosis/Problem Alcohol abuse Subjective Update: Doing a little better today, feeling weak. has mild tremors and has a mild headache. Wanting to try CL diet today. No chest pain or SOB. Mild epigastric pain, intermittent nausea. passing flatus and had brown BM today. Functional Status: Reports: Pain Controlled, Ambulating, Urinating - Review of Systems General: Reports: Weakness, Fatigue, Malaise Pulmonary: Reports: No Symptoms. Denies: Shortness of Breath Cardiovascular: Reports: No Symptoms. Denies: Chest Pain Gastrointestinal: Reports: Abdominal Pain (epigastric), Flatus, Nausea Genitourinary: Reports: No Symptoms Skin: Reports: Bruising Neurological: Reports: No Symptoms Psychiatric: Reports: No Symptoms - Patient Data Vitals - Most Recent: Last Vital Signs Temp 98.3 F 01/24/20 08:10 Pulse 76 01/24/20 08:10 Resp 14 01/24/20 08:10 BP 117/70 01/24/20 08:10 Pulse Ox 97 01/24/20 08:10 Weight - Most Recent: 73.5 kg I&O - Last 24 Hours: Intake & Output 01/23/20 01/24/20 01/24/20 22:59 06:59 14:59 Intake Total 3300 Output Total 1400 Balance 1900 Lab Results Last 24 Hours: Laboratory Results - last 24 hr 01/23/20 01/23/20 01/23/20 Range/Units 11:30 11:30 11:30 WBC 4.69 (4.0-11.0) K/uL RBC 3.68 L (4.30-5.90) M/uL Hgb 12.4 (12.0-16.0) g/dL Hct 37.0 (36.0-46.0) % MCV 100.5 H (80.0-98.0) fL MCH 33.7 H (27.0-32.0) pg MCHC 33.5 (31.0-37.0) g/dL RDW Std Deviation 57.2 (28.0-62.0) fl RDW Coeff of Yousuf 15 (11.0-15.0) % Plt Count 124 L (150-400) K/uL MPV 12.20 H (7.40-12.00) fL Neut % (Auto) 59.1 (48.0-80.0) % Lymph % (Auto) 23.2 (16.0-40.0) % Power % (Auto) 14.7 (0.0-15.0) % Eos % (Auto) 1.5 (0.0-7.0) % Baso % (Auto) 1.5 (0.0-1.5) % Neut # (Auto) 2.8 (1.4-5.7) K/uL Lymph # (Auto) 1.1 (0.6-2.4) K/uL Power # (Auto) 0.7 (0.0-0.8) K/uL Eos # (Auto) 0.1 (0.0-0.7) K/uL Baso # (Auto) 0.1 (0.0-0.1) K/uL Nucleated RBC % 0.0 /100WBC Nucleated RBCs # 0 K/uL INR 1.30 Sodium (136-145) mmol/L Potassium (3.5-5.1) mmol/L Chloride (98-107) mmol/L Carbon Dioxide (21.0-32.0) mmol/L BUN (7.0-18.0) mg/dL Creatinine (0.6-1.0) mg/dL Est Cr Clr Drug Dosing mL/min Estimated GFR (MDRD) ml/min Glucose (74-106) mg/dL POC Glucose (60-110) mg/dL Calcium (8.5-10.1) mg/dL Phosphorus (2.6-4.7) mg/dL Magnesium (1.8-2.4) mg/dL Total Bilirubin (0.2-1.0) mg/dL AST (15-37) IU/L ALT (14-63) IU/L Alkaline Phosphatase (46-116) U/L Total Protein (6.4-8.2) g/dL Albumin (3.4-5.0) g/dL Globulin (2.6-4.0) g/dL Albumin/Globulin Ratio (0.9-1.6) Triglycerides (0-200) mg/dL Cholesterol (50-200) mg/dL LDL Cholesterol, Calc (60-180) mg/dL VLDL Cholesterol (5-55) mg/dL HDL Cholesterol (40-60) mg/dL Cholesterol/HDL Ratio (3.3-6.0) Lipase (73-393) U/L Urine Color YELLOW Urine Appearance HAZY Urine pH 6.0 (5.0-8.0) Ur Specific [place] 1.025 (1.001-1.035) Urine Protein 30 H (NEGATIVE) mg/dL Urine Glucose (UA) NEGATIVE (NEGATIVE) mg/dL Urine Ketones TRACE H (NEGATIVE) mg/dL Urine Occult Blood TRACE-LYSED H (NEGATIVE) Urine Nitrite NEGATIVE (NEGATIVE) Urine Bilirubin SMALL H (NEGATIVE) Urine Ictotest NEGATIVE Urine Urobilinogen 0.2 (<2.0) EU/dL Ur Leukocyte Esterase NEGATIVE (NEGATIVE) U Hyaline Cast (Auto) 0-3 (0-2/LPF) Urine RBC 0-4 (0-2/HPF) Urine WBC 0-3 (0-5/HPF) Ur Epithelial Cells FEW (NONE-FEW) Urine Bacteria FEW (NEGATIVE) Urine Mucus LIGHT (NONE-MOD) Acetaminophen ug/mL 01/23/20 01/23/20 01/23/20 Range/Units 12:10 12:10 12:10 WBC (4.0-11.0) K/uL RBC (4.30-5.90) M/uL Hgb (12.0-16.0) g/dL Hct (36.0-46.0) % MCV (80.0-98.0) fL MCH (27.0-32.0) pg MCHC (31.0-37.0) g/dL RDW Std Deviation (28.0-62.0) fl RDW Coeff of Yousuf (11.0-15.0) % Plt Count (150-400) K/uL MPV (7.40-12.00) fL Neut % (Auto) (48.0-80.0) % Lymph % (Auto) (16.0-40.0) % Power % (Auto) (0.0-15.0) % Eos % (Auto) (0.0-7.0) % Baso % (Auto) (0.0-1.5) % Neut # (Auto) (1.4-5.7) K/uL Lymph # (Auto) (0.6-2.4) K/uL Power # (Auto) (0.0-0.8) K/uL Eos # (Auto) (0.0-0.7) K/uL Baso # (Auto) (0.0-0.1) K/uL Nucleated RBC % /100WBC Nucleated RBCs # K/uL INR Sodium 142 (136-145) mmol/L Potassium 4.2 (3.5-5.1) mmol/L Chloride 100 (98-107) mmol/L Carbon Dioxide 26.9 (21.0-32.0) mmol/L BUN 5 L (7.0-18.0) mg/dL Creatinine 0.8 (0.6-1.0) mg/dL Est Cr Clr Drug Dosing 101.60 mL/min Estimated GFR (MDRD) > 60.0 ml/min Glucose 88 (74-106) mg/dL POC Glucose (60-110) mg/dL Calcium 8.9 (8.5-10.1) mg/dL Phosphorus (2.6-4.7) mg/dL Magnesium (1.8-2.4) mg/dL Total Bilirubin 1.6 H (0.2-1.0) mg/dL AST 718 H (15-37) IU/L ALT 249 H (14-63) IU/L Alkaline Phosphatase 138 H (46-116) U/L Total Protein 7.4 (6.4-8.2) g/dL Albumin 3.8 (3.4-5.0) g/dL Globulin 3.6 (2.6-4.0) g/dL Albumin/Globulin Ratio 1.1 (0.9-1.6) Triglycerides (0-200) mg/dL Cholesterol (50-200) mg/dL LDL Cholesterol, Calc (60-180) mg/dL VLDL Cholesterol (5-55) mg/dL HDL Cholesterol (40-60) mg/dL Cholesterol/HDL Ratio (3.3-6.0) Lipase 736 H (73-393) U/L Urine Color Urine Appearance Urine pH (5.0-8.0) Ur Specific [place] (1.001-1.035) Urine Protein (NEGATIVE) mg/dL Urine Glucose (UA) (NEGATIVE) mg/dL Urine Ketones (NEGATIVE) mg/dL Urine Occult Blood (NEGATIVE) Urine Nitrite (NEGATIVE) Urine Bilirubin (NEGATIVE) Urine Ictotest Urine Urobilinogen (<2.0) EU/dL Ur Leukocyte Esterase (NEGATIVE) U Hyaline Cast (Auto) (0-2/LPF) Urine RBC (0-2/HPF) Urine WBC (0-5/HPF) Ur Epithelial Cells (NONE-FEW) Urine Bacteria (NEGATIVE) Urine Mucus (NONE-MOD) Acetaminophen <2.0 ug/mL 01/23/20 01/23/20 01/23/20 Range/Units 12:10 15:04 21:07 WBC (4.0-11.0) K/uL RBC (4.30-5.90) M/uL Hgb (12.0-16.0) g/dL Hct (36.0-46.0) % MCV (80.0-98.0) fL MCH (27.0-32.0) pg MCHC (31.0-37.0) g/dL RDW Std Deviation (28.0-62.0) fl RDW Coeff of Yousuf (11.0-15.0) % Plt Count (150-400) K/uL MPV (7.40-12.00) fL Neut % (Auto) (48.0-80.0) % Lymph % (Auto) (16.0-40.0) % Power % (Auto) (0.0-15.0) % Eos % (Auto) (0.0-7.0) % Baso % (Auto) (0.0-1.5) % Neut # (Auto) (1.4-5.7) K/uL Lymph # (Auto) (0.6-2.4) K/uL Power # (Auto) (0.0-0.8) K/uL Eos # (Auto) (0.0-0.7) K/uL Baso # (Auto) (0.0-0.1) K/uL Nucleated RBC % /100WBC Nucleated RBCs # K/uL INR Sodium (136-145) mmol/L Potassium (3.5-5.1) mmol/L Chloride (98-107) mmol/L Carbon Dioxide (21.0-32.0) mmol/L BUN (7.0-18.0) mg/dL Creatinine (0.6-1.0) mg/dL Est Cr Clr Drug Dosing mL/min Estimated GFR (MDRD) ml/min Glucose (74-106) mg/dL POC Glucose 79 78 (60-110) mg/dL Calcium (8.5-10.1) mg/dL Phosphorus 4.4 (2.6-4.7) mg/dL Magnesium 1.8 (1.8-2.4) mg/dL Total Bilirubin (0.2-1.0) mg/dL AST (15-37) IU/L ALT (14-63) IU/L Alkaline Phosphatase (46-116) U/L Total Protein (6.4-8.2) g/dL Albumin (3.4-5.0) g/dL Globulin (2.6-4.0) g/dL Albumin/Globulin Ratio (0.9-1.6) Triglycerides (0-200) mg/dL Cholesterol (50-200) mg/dL LDL Cholesterol, Calc (60-180) mg/dL VLDL Cholesterol (5-55) mg/dL HDL Cholesterol (40-60) mg/dL Cholesterol/HDL Ratio (3.3-6.0) Lipase (73-393) U/L Urine Color Urine Appearance Urine pH (5.0-8.0) Ur Specific [place] (1.001-1.035) Urine Protein (NEGATIVE) mg/dL Urine Glucose (UA) (NEGATIVE) mg/dL Urine Ketones (NEGATIVE) mg/dL Urine Occult Blood (NEGATIVE) Urine Nitrite (NEGATIVE) Urine Bilirubin (NEGATIVE) Urine Ictotest Urine Urobilinogen (<2.0) EU/dL Ur Leukocyte Esterase (NEGATIVE) U Hyaline Cast (Auto) (0-2/LPF) Urine RBC (0-2/HPF) Urine WBC (0-5/HPF) Ur Epithelial Cells (NONE-FEW) Urine Bacteria (NEGATIVE) Urine Mucus (NONE-MOD) Acetaminophen ug/mL 01/24/20 01/24/20 01/24/20 Range/Units 03:22 05:58 05:58 WBC 2.80 L (4.0-11.0) K/uL RBC 3.04 L (4.30-5.90) M/uL Hgb 10.2 L (12.0-16.0) g/dL Hct 31.4 L (36.0-46.0) % MCV 103.3 H (80.0-98.0) fL MCH 33.6 H (27.0-32.0) pg MCHC 32.5 (31.0-37.0) g/dL RDW Std Deviation 58.0 (28.0-62.0) fl RDW Coeff of Yousuf 15 (11.0-15.0) % Plt Count 144 L (150-400) K/uL MPV 10.60 (7.40-12.00) fL Neut % (Auto) 57.2 (48.0-80.0) % Lymph % (Auto) 28.2 (16.0-40.0) % Power % (Auto) 9.6 (0.0-15.0) % Eos % (Auto) 3.2 (0.0-7.0) % Baso % (Auto) 1.8 H (0.0-1.5) % Neut # (Auto) 1.6 (1.4-5.7) K/uL Lymph # (Auto) 0.8 (0.6-2.4) K/uL Power # (Auto) 0.3 (0.0-0.8) K/uL Eos # (Auto) 0.1 (0.0-0.7) K/uL Baso # (Auto) 0.1 (0.0-0.1) K/uL Nucleated RBC % 0.0 /100WBC Nucleated RBCs # 0 K/uL INR Sodium 141 (136-145) mmol/L Potassium 3.3 L (3.5-5.1) mmol/L Chloride 103 (98-107) mmol/L Carbon Dioxide 28.5 (21.0-32.0) mmol/L BUN 5 L (7.0-18.0) mg/dL Creatinine 0.8 (0.6-1.0) mg/dL Est Cr Clr Drug Dosing 101.24 mL/min Estimated GFR (MDRD) > 60.0 ml/min Glucose 90 (74-106) mg/dL POC Glucose 75 (60-110) mg/dL Calcium 6.8 L (8.5-10.1) mg/dL Phosphorus 2.5 L (2.6-4.7) mg/dL Magnesium 1.4 L (1.8-2.4) mg/dL Total Bilirubin 2.3 H (0.2-1.0) mg/dL AST 537 H (15-37) IU/L ALT 189 H (14-63) IU/L Alkaline Phosphatase 114 (46-116) U/L Total Protein 5.9 L (6.4-8.2) g/dL Albumin 3.0 L (3.4-5.0) g/dL Globulin 2.9 (2.6-4.0) g/dL Albumin/Globulin Ratio 1.0 (0.9-1.6) Triglycerides 49 (0-200) mg/dL Cholesterol 126 (50-200) mg/dL LDL Cholesterol, Calc 67 (60-180) mg/dL VLDL Cholesterol 9 (5-55) mg/dL HDL Cholesterol 49 (40-60) mg/dL Cholesterol/HDL Ratio 2.6 L (3.3-6.0) Lipase 634 H (73-393) U/L Urine Color Urine Appearance Urine pH (5.0-8.0) Ur Specific [place] (1.001-1.035) Urine Protein (NEGATIVE) mg/dL Urine Glucose (UA) (NEGATIVE) mg/dL Urine Ketones (NEGATIVE) mg/dL Urine Occult Blood (NEGATIVE) Urine Nitrite (NEGATIVE) Urine Bilirubin (NEGATIVE) Urine Ictotest Urine Urobilinogen (<2.0) EU/dL Ur Leukocyte Esterase (NEGATIVE) U Hyaline Cast (Auto) (0-2/LPF) Urine RBC (0-2/HPF) Urine WBC (0-5/HPF) Ur Epithelial Cells (NONE-FEW) Urine Bacteria (NEGATIVE) Urine Mucus (NONE-MOD) Acetaminophen ug/mL 01/24/20 Range/Units 05:58 WBC (4.0-11.0) K/uL RBC (4.30-5.90) M/uL Hgb (12.0-16.0) g/dL Hct (36.0-46.0) % MCV (80.0-98.0) fL MCH (27.0-32.0) pg MCHC (31.0-37.0) g/dL RDW Std Deviation (28.0-62.0) fl RDW Coeff of Yousuf (11.0-15.0) % Plt Count (150-400) K/uL MPV (7.40-12.00) fL Neut % (Auto) (48.0-80.0) % Lymph % (Auto) (16.0-40.0) % Power % (Auto) (0.0-15.0) % Eos % (Auto) (0.0-7.0) % Baso % (Auto) (0.0-1.5) % Neut # (Auto) (1.4-5.7) K/uL Lymph # (Auto) (0.6-2.4) K/uL Power # (Auto) (0.0-0.8) K/uL Eos # (Auto) (0.0-0.7) K/uL Baso # (Auto) (0.0-0.1) K/uL Nucleated RBC % /100WBC Nucleated RBCs # K/uL INR 1.30 Sodium (136-145) mmol/L Potassium (3.5-5.1) mmol/L Chloride (98-107) mmol/L Carbon Dioxide (21.0-32.0) mmol/L BUN (7.0-18.0) mg/dL Creatinine (0.6-1.0) mg/dL Est Cr Clr Drug Dosing mL/min Estimated GFR (MDRD) ml/min Glucose (74-106) mg/dL POC Glucose (60-110) mg/dL Calcium (8.5-10.1) mg/dL Phosphorus (2.6-4.7) mg/dL Magnesium (1.8-2.4) mg/dL Total Bilirubin (0.2-1.0) mg/dL AST (15-37) IU/L ALT (14-63) IU/L Alkaline Phosphatase (46-116) U/L Total Protein (6.4-8.2) g/dL Albumin (3.4-5.0) g/dL Globulin (2.6-4.0) g/dL Albumin/Globulin Ratio (0.9-1.6) Triglycerides (0-200) mg/dL Cholesterol (50-200) mg/dL LDL Cholesterol, Calc (60-180) mg/dL VLDL Cholesterol (5-55) mg/dL HDL Cholesterol (40-60) mg/dL Cholesterol/HDL Ratio (3.3-6.0) Lipase (73-393) U/L Urine Color Urine Appearance Urine pH (5.0-8.0) Ur Specific [place] (1.001-1.035) Urine Protein (NEGATIVE) mg/dL Urine Glucose (UA) (NEGATIVE) mg/dL Urine Ketones (NEGATIVE) mg/dL Urine Occult Blood (NEGATIVE) Urine Nitrite (NEGATIVE) Urine Bilirubin (NEGATIVE) Urine Ictotest Urine Urobilinogen (<2.0) EU/dL Ur Leukocyte Esterase (NEGATIVE) U Hyaline Cast (Auto) (0-2/LPF) Urine RBC (0-2/HPF) Urine WBC (0-5/HPF) Ur Epithelial Cells (NONE-FEW) Urine Bacteria (NEGATIVE) Urine Mucus (NONE-MOD) Acetaminophen ug/mL Med Orders - Current: Current Medications Folic Acid (Folic Acid) 1 mg SUBCUT DAILY [facility] Last Admin: 01/24/20 08:15 Dose: 1 mg Thiamine HCl 100 mg/ Sodium (Chloride) 101 mls @ 202 mls/hr IV DAILY [facility] Dextrose/Sodium Chloride (Dextrose 5%-Normal Saline) 1,000 mls @ 50 mls/hr IV Q20H [facility] Last Admin: 01/23/20 14:53 Dose: 50 mls/hr Sodium Chloride (Normal Saline) 1,000 mls @ 125 mls/hr IV Q8H [facility] Last Admin: 01/24/20 07:12 Dose: Not Given Magnesium Sulfate 4 gm/ Premix 100 mls @ 33.333 mls/hr IV ONETIME ONE Stop: 01/24/20 10:52 Last Admin: 01/24/20 08:22 Dose: 33.333 mls/hr Potassium Phosphate 15 mmole/ (Sodium Chloride) 255 mls @ 63.75 mls/hr IV NOW ONE Stop: 01/24/20 12:44 Lorazepam (Ativan) 0 mg IVPUSH Q4H PRN; Protocol PRN Reason: CIWAA Last Admin: 01/24/20 05:17 Dose: 1 mg Melatonin (Melatonin) 6 mg PO BEDTIME NEVAEH Ondansetron HCl (Zofran) 4 mg IVPUSH Q4H PRN PRN Reason: Nausea Last Admin: 01/23/20 21:18 Dose: 4 mg Oxycodone HCl (Oxycodone) 5 mg PO Q4H PRN PRN Reason: Pain Pantoprazole Sodium (Protonix Iv) 40 mg IV Q24H [facility] Last Admin: 01/23/20 14:52 Dose: 40 mg Discontinued Medications Sodium Chloride (Normal Saline) 1,000 mls @ 999 mls/hr IV STAT ONE Stop: 01/23/20 12:47 Last Admin: 01/23/20 12:00 Dose: 999 mls/hr Sodium Chloride (Normal Saline) 1,000 mls @ 999 mls/hr IV STAT ONE Stop: 01/23/20 12:48 Last Admin: 01/23/20 13:32 Dose: Not Given Multivitamins/Minerals 10 ml/Thiamine HCl 100 mg/ Folic Acid 1 mg/ Sodium Chloride 1,011.2 mls @ 150 mls/hr IV ONETIME ONE Stop: 01/23/20 19:39 Last Admin: 01/23/20 14:07 Dose: 150 mls/hr Potassium Phosphate 15 mmole/ (Sodium Chloride) 255 mls @ 63.75 mls/hr IV NOW ONE Stop: 01/24/20 08:34 Morphine Sulfate (Morphine) 2 mg IVPUSH Q2H PRN PRN Reason: Pain (severe 7-10) Stop: 01/24/20 13:53 Morphine Sulfate (Morphine) 2 mg IVPUSH Q4H PRN PRN Reason: Pain (severe 7-10) Last Admin: 01/23/20 21:18 Dose: 2 mg - Exam General: Alert, Oriented, Cooperative, No Acute Distress Lungs: Clear to Auscultation, Normal Respiratory Effort Cardiovascular: Regular Rate, Regular Rhythm GI/Abdominal Exam: Normal Bowel Sounds, Soft, Tender (epigastric) Extremities: Normal Inspection, Normal Range of Motion, Non-Tender, No Pedal Edema Skin: Other (brusing continues, no petechiae) Neurological: No New Focal Deficit Psy/Mental Status: Alert, Normal Affect, Normal Mood Sepsis Event Note - Evaluation Sepsis Screening Result: No Definite Risk - Focused Exam Vital Signs: Vital Signs Temp Pulse Resp BP Pulse Ox 01/24/20 08:10 98.3 F 76 14 117/70 97 01/24/20 04:30 98.9 F 97 16 122/78 94 L 01/23/20 23:29 98.8 F 114 H 16 122/80 97 Date Exam was Performed: 01/24/20 Time Exam was Performed: 09:41 - Problem List & Annotations (1) Acute alcoholic hepatitis SNOMED Code(s): 6500220 Code(s): K70.10 - ALCOHOLIC HEPATITIS WITHOUT ASCITES Status: Acute Current Visit: Yes (2) Elevated INR SNOMED Code(s): 247245523 Code(s): R79.1 - ABNORMAL COAGULATION PROFILE Status: Acute Current Visit : Yes (3) Pancreatitis SNOMED Code(s): 23656977 Code(s): K85.90 - ACUTE PANCREATITIS WITHOUT NECROSIS OR INFECTION, UNSP Status: Acute Current Visit: No (4) PTSD (post-traumatic stress disorder) SNOMED Code(s): 30860597 Code(s): F43.10 - POST-TRAUMATIC STRESS DISORDER, UNSPECIFIED Status: Chronic Current Visit: Yes (5) Hx of gastric bypass SNOMED Code(s): 124441102 Code(s): Z98.84 - BARIATRIC SURGERY STATUS Status: Chronic Current Visit : Yes (6) Alcohol abuse SNOMED Code(s): 34568636 Code(s): F10.10 - ALCOHOL ABUSE, UNCOMPLICATED Status: Chronic Current Visit: Yes - Problem List Review Problem List Initiated/Reviewed/Updated: Yes - My Orders Last 24 Hours: My Active Orders 01/23/20 13:51 Blood Glucose Check, Bedside [RC] Q6H 01/23/20 13:52 Height and Weight [RC] DAILY Oxygen Therapy [RC] PRN Up With Assistance [RC] ASDIRECTED VTE/DVT Education [RC] PER UNIT ROUTINE Vital Signs [RC] Q4H Ondansetron [Zofran] 4 mg IVPUSH Q4H PRN Resuscitation Status Routine 01/23/20 13:53 Intake and Output [RC] Q12H 01/23/20 13:54 CIWAA Assessment [RC] Q4H LORazepam [Ativan] See Protocol IVPUSH Q4H PRN 01/23/20 14:00 Pantoprazole [ProTONIX IV] 40 mg IV Q24H 01/23/20 14:25 Admission Status [Patient Status] [ADT] Routine 01/23/20 14:30 Dextrose 5%-0.9% NaCl [Dextrose 5%-Normal Saline] 1,000 ml IV Q20H 01/23/20 14:45 Sodium Chloride 0.9% [Normal Saline] 1,000 ml IV Q8H 01/23/20 14:50 HEPATITIS PANEL (4) [REF] Urgent 05/01/20 07:53 Magnesium Sulfate/Water [Magnesium Sulfate in Water Premix] 4 gm Premix Bag 1 bag IV ONETIME 01/24/20 08:45 Potassium Phosphates 15 mmole Sodium Chloride 0.9% [Normal Saline] 250 ml IV NOW 01/24/20 09:00 Folic Acid 1 mg SUBCUT DAILY Thiamine [Vitamin B-1] 100 mg Sodium Chloride 0.9% [Normal Saline] 100 ml IV DAILY 01/24/20 09:39 oxyCODONE 5 mg PO Q4H PRN 01/24/20 21:00 Melatonin 6 mg PO BEDTIME 01/24/20 Breakfast Clear Liquid Diet [DIET] 01/25/20 05:11 CBC WITH AUTO DIFF [HEME] AM COMPREHENSIVE METABOLIC PN,CMP [CHEM] AM INR,PT,PROTHROMBIN TIME [COAG] AM MAGNESIUM [CHEM] AM PHOSPHORUS [CHEM] AM 01/26/20 05:11 CBC WITH AUTO DIFF [HEME] AM COMPREHENSIVE METABOLIC PN,CMP [CHEM] AM INR,PT,PROTHROMBIN TIME [COAG] AM MAGNESIUM [CHEM] AM PHOSPHORUS [CHEM] AM 01/27/20 05:11 CBC WITH AUTO DIFF [HEME] AM COMPREHENSIVE METABOLIC PN,CMP [CHEM] AM INR,PT,PROTHROMBIN TIME [COAG] AM MAGNESIUM [CHEM] AM PHOSPHORUS [CHEM] AM - Plan Plan:: This 34 year old female admitted for acute alcoholic hepatitis and pancreatitis 1. Acute alcoholic hepatitis: - Hepatitis panel pending. - RUQ US found fatty infiltration, no biliary dilation noted. - Monitor LFTS and INR in am. IR 1.3 today, no change, bili slightly elevated, remaining LFTs improved. - Counseled on sobriety, will need community resources on discharge - Will monitor blood sugars, as hx of hypoglycemia is noted. - Monitor thrombocytopenia, mild improvement, 144,00 today. 2. Pancreatitis: - Continue NS at 125 along with D5 NS at 50 ml, for continuously IVF rate of 175 mls/hr - CL today 3. Alcohol abuse and detox: - Thiamine and folic acid supplementation daily - CIWAA protocol with Ativan - Monitor electrolytes daily and supplement as needed 4. Electrolyte abnormlatiies: - Replace potassium, phosphate and Magnesium today. Recheck in am. VTE prophylaxis: ambulation GI prophylaxis: Protonix daily Dispo: Change to inpatient status, as stay will likely be greater than 2 midnights.
[2020-01-24] MEDS: Thiamine 100 MG in Sodium Chloride 0.9% 100 ML IV SCH (11:47)
[2020-01-24] MEDS: Dextrose 5%-0.9% NaCl 1,000 ML IV SCH ×2 (13:14→18:17)
[2020-01-24] MEDS: Pantoprazole 40 MG Vial IV SCH (15:04)
[2020-01-24] MEDS: Ibuprofen 400 MG Tab PO PRN ×2 (15:26→15:59)
[2020-01-24] MEDS: Melatonin 3 MG Tab PO SCH (21:24)
[2020-01-25] MEDS ORDERED: Loperamide 2 MG Cap PO PRN (00:42)
[2020-01-25] MEDS: Sodium Chloride 0.9% 1,000 ML IV SCH ×5 (00:45→22:24)
[2020-01-25] MEDS: LORazepam 2 MG/ML SDV IVPUSH PRN ×3 (04:39→21:10)
[2020-01-25 06:46] LABS: BLOOD UREA NITROGEN,BUN 2 mg/dL (7.0-18.0); CARBON DIOXIDE,CO2 25.4 mmol/L (21.0-32.0); CHLORIDE,CL 109 mmol/L (98-107); GLUCOSE RANDOM 94 mg/dL (74-106); POTASSIUM,K 3.3 mmol/L (3.5-5.1); SODIUM,NA 142 mmol/L (136-145)
[2020-01-25] MEDS: Dextrose 5%-0.9% NaCl 1,000 ML IV SCH ×2 (07:48→14:20)
[2020-01-25] MEDS: Folic Acid 50 MG/10 ML MDV SUBCUT SCH (09:38)
[2020-01-25] MEDS: Thiamine 100 MG in Sodium Chloride 0.9% 100 ML IV SCH (10:38)
[2020-01-25] MEDS ORDERED: Potassium Chloride 20 MEQ Tab.ER PO ONE (10:44)
--- NOTE | 2020-01-25 11:06 | PCM.PN ---
- General Info Date of Service: 01/25/20 - Review of Systems Systems Review Comment:: patient reports weakness, and nausea, having tremors, abdominal pain has improved. - Patient Data Vitals - Most Recent: Last Vital Signs Temp 36.7 C 01/25/20 09:34 Pulse 81 01/25/20 09:34 Resp 18 01/25/20 09:34 BP 122/88 01/25/20 09:34 Pulse Ox 98 01/25/20 09:34 Weight - Most Recent: 71.2 kg I&O - Last 24 Hours: Intake & Output 01/24/20 01/25/20 01/25/20 22:59 06:59 14:59 Intake Total 3288 1000 Output Total 1000 2100 Balance 2288 -1100 Lab Results Last 24 Hours: Laboratory Results - last 24 hr 01/24/20 01/24/20 01/25/20 Range/Units 15:07 21:23 04:29 WBC (4.0-11.0) K/uL RBC (4.30-5.90) M/uL Hgb (12.0-16.0) g/dL Hct (36.0-46.0) % MCV (80.0-98.0) fL MCH (27.0-32.0) pg MCHC (31.0-37.0) g/dL RDW Std Deviation (28.0-62.0) fl RDW Coeff of Yousuf (11.0-15.0) % Plt Count (150-400) K/uL MPV (7.40-12.00) fL Neut % (Auto) (48.0-80.0) % Lymph % (Auto) (16.0-40.0) % [place] % (Auto) (0.0-15.0) % Eos % (Auto) (0.0-7.0) % Baso % (Auto) (0.0-1.5) % Neut # (Auto) (1.4-5.7) K/uL Lymph # (Auto) (0.6-2.4) K/uL [place] # (Auto) (0.0-0.8) K/uL Eos # (Auto) (0.0-0.7) K/uL Baso # (Auto) (0.0-0.1) K/uL Nucleated RBC % /100WBC Nucleated RBCs # K/uL INR Sodium (136-145) mmol/L Potassium (3.5-5.1) mmol/L Chloride (98-107) mmol/L Carbon Dioxide (21.0-32.0) mmol/L BUN (7.0-18.0) mg/dL Creatinine (0.6-1.0) mg/dL Est Cr Clr Drug Dosing mL/min Estimated GFR (MDRD) ml/min Glucose (74-106) mg/dL POC Glucose 109 79 80 (60-110) mg/dL Calcium (8.5-10.1) mg/dL Phosphorus (2.6-4.7) mg/dL Magnesium (1.8-2.4) mg/dL Total Bilirubin (0.2-1.0) mg/dL AST (15-37) IU/L ALT (14-63) IU/L Alkaline Phosphatase (46-116) U/L Total Protein (6.4-8.2) g/dL Albumin (3.4-5.0) g/dL Globulin (2.6-4.0) g/dL Albumin/Globulin Ratio (0.9-1.6) 01/25/20 01/25/20 01/25/20 Range/Units 05:50 05:50 05:50 WBC 2.57 L (4.0-11.0) K/uL RBC 2.82 L (4.30-5.90) M/uL Hgb 9.6 L (12.0-16.0) g/dL Hct 29.6 L (36.0-46.0) % MCV 105.0 H (80.0-98.0) fL MCH 34.0 H (27.0-32.0) pg MCHC 32.4 (31.0-37.0) g/dL RDW Std Deviation 57.4 (28.0-62.0) fl RDW Coeff of Yousuf 15 (11.0-15.0) % Plt Count 66 L (150-400) K/uL MPV 10.60 (7.40-12.00) fL Neut % (Auto) 55.6 (48.0-80.0) % Lymph % (Auto) 31.1 (16.0-40.0) % [place] % (Auto) 8.2 (0.0-15.0) % Eos % (Auto) 4.3 (0.0-7.0) % Baso % (Auto) 0.8 (0.0-1.5) % Neut # (Auto) 1.4 (1.4-5.7) K/uL Lymph # (Auto) 0.8 (0.6-2.4) K/uL [place] # (Auto) 0.2 (0.0-0.8) K/uL Eos # (Auto) 0.1 (0.0-0.7) K/uL Baso # (Auto) 0.0 (0.0-0.1) K/uL Nucleated RBC % 0.0 /100WBC Nucleated RBCs # 0 K/uL INR 1.31 Sodium 142 (136-145) mmol/L Potassium 3.3 L (3.5-5.1) mmol/L Chloride 109 H (98-107) mmol/L Carbon Dioxide 25.4 (21.0-32.0) mmol/L BUN 2 L (7.0-18.0) mg/dL Creatinine 0.7 (0.6-1.0) mg/dL Est Cr Clr Drug Dosing 115.70 mL/min Estimated GFR (MDRD) > 60.0 ml/min Glucose 94 (74-106) mg/dL POC Glucose (60-110) mg/dL Calcium 6.9 L (8.5-10.1) mg/dL Phosphorus 2.1 L (2.6-4.7) mg/dL Magnesium 1.8 (1.8-2.4) mg/dL Total Bilirubin 1.7 H (0.2-1.0) mg/dL AST 326 H (15-37) IU/L ALT 149 H (14-63) IU/L Alkaline Phosphatase 102 (46-116) U/L Total Protein 5.4 L (6.4-8.2) g/dL Albumin 2.6 L (3.4-5.0) g/dL Globulin 2.8 (2.6-4.0) g/dL Albumin/Globulin Ratio 0.9 (0.9-1.6) /11/14 Range/Units 10:05 WBC (4.0-11.0) K/uL RBC (4.30-5.90) M/uL Hgb (12.0-16.0) g/dL Hct (36.0-46.0) % MCV (80.0-98.0) fL MCH (27.0-32.0) pg MCHC (31.0-37.0) g/dL RDW Std Deviation (28.0-62.0) fl RDW Coeff of Yousuf (11.0-15.0) % Plt Count (150-400) K/uL MPV (7.40-12.00) fL Neut % (Auto) (48.0-80.0) % Lymph % (Auto) (16.0-40.0) % [place] % (Auto) (0.0-15.0) % Eos % (Auto) (0.0-7.0) % Baso % (Auto) (0.0-1.5) % Neut # (Auto) (1.4-5.7) K/uL Lymph # (Auto) (0.6-2.4) K/uL [place] # (Auto) (0.0-0.8) K/uL Eos # (Auto) (0.0-0.7) K/uL Baso # (Auto) (0.0-0.1) K/uL Nucleated RBC % /100WBC Nucleated RBCs # K/uL INR Sodium (136-145) mmol/L Potassium (3.5-5.1) mmol/L Chloride (98-107) mmol/L Carbon Dioxide (21.0-32.0) mmol/L BUN (7.0-18.0) mg/dL Creatinine (0.6-1.0) mg/dL Est Cr Clr Drug Dosing mL/min Estimated GFR (MDRD) ml/min Glucose (74-106) mg/dL POC Glucose 91 (60-110) mg/dL Calcium (8.5-10.1) mg/dL Phosphorus (2.6-4.7) mg/dL Magnesium (1.8-2.4) mg/dL Total Bilirubin (0.2-1.0) mg/dL AST (15-37) IU/L ALT (14-63) IU/L Alkaline Phosphatase (46-116) U/L Total Protein (6.4-8.2) g/dL Albumin (3.4-5.0) g/dL Globulin (2.6-4.0) g/dL Albumin/Globulin Ratio (0.9-1.6) Med Orders - Current: Current Medications Folic Acid (Folic Acid) 1 mg SUBCUT DAILY [facility] Last Admin: 01/25/20 09:38 Dose: 1 mg Thiamine HCl 100 mg/ Sodium (Chloride) 101 mls @ 202 mls/hr IV DAILY [facility] Last Admin: 01/25/20 10:38 Dose: 202 mls/hr Dextrose/Sodium Chloride (Dextrose 5%-Normal Saline) 1,000 mls @ 50 mls/hr IV Q20H [facility] Last Admin: 01/25/20 07:48 Dose: Not Given Sodium Chloride (Normal Saline) 1,000 mls @ 125 mls/hr IV Q8H [facility] Last Admin: 01/25/20 07:48 Dose: Not Given Calcium Gluconate 1 gm/ Sodium (Chloride) 60 mls @ 120 mls/hr IV NOW ONE Stop: 01/25/20 11:13 Ibuprofen (Motrin) 400 mg PO Q8H PRN PRN Reason: Headache Last Admin: 01/24/20 15:59 Dose: 400 mg Loperamide HCl (Imodium) 2 mg PO Q4H PRN PRN Reason: Diarrhea Last Admin: 01/25/20 00:50 Dose: 2 mg Lorazepam (Ativan) 0 mg IVPUSH Q4H PRN; Protocol PRN Reason: CIWAA Last Admin: 01/25/20 10:12 Dose: 1 mg Melatonin (Melatonin) 6 mg PO BEDTIME [facility] Last Admin: 01/24/20 21:24 Dose: 6 mg Ondansetron HCl (Zofran) 4 mg IVPUSH Q4H PRN PRN Reason: Nausea Last Admin: 01/23/20 21:18 Dose: 4 mg Oxycodone HCl (Oxycodone) 5 mg PO Q4H PRN PRN Reason: Pain Pantoprazole Sodium (Protonix Iv) 40 mg IV Q24H [facility] Last Admin: 01/24/20 15:04 Dose: 40 mg Potassium Chloride (Klor-Con M20) 40 meq PO ONETIME ONE Stop: 01/25/20 10:45 Sodium Phosphate (Neutra-Phos) 250 mg PO QID [facility] Discontinued Medications Sodium Chloride (Normal Saline) 1,000 mls @ 999 mls/hr IV STAT ONE Stop: 01/23/20 12:47 Last Admin: 01/23/20 12:00 Dose: 999 mls/hr Sodium Chloride (Normal Saline) 1,000 mls @ 999 mls/hr IV STAT ONE Stop: 01/23/20 12:48 Last Admin: 01/23/20 13:32 Dose: Not Given Multivitamins/Minerals 10 ml/Thiamine HCl 100 mg/ Folic Acid 1 mg/ Sodium Chloride 1,011.2 mls @ 150 mls/hr IV ONETIME ONE Stop: 01/23/20 19:39 Last Admin: 01/23/20 14:07 Dose: 150 mls/hr Magnesium Sulfate 4 gm/ Premix 100 mls @ 33.333 mls/hr IV ONETIME ONE Stop: 01/24/20 10:52 Last Admin: 01/24/20 08:22 Dose: 33.333 mls/hr Potassium Phosphate 15 mmole/ (Sodium Chloride) 255 mls @ 63.75 mls/hr IV NOW ONE Stop: 01/24/20 12:44 Last Admin: 01/24/20 12:49 Dose: 63.75 mls/hr Morphine Sulfate (Morphine) 2 mg IVPUSH Q2H PRN PRN Reason: Pain (severe 7-10) Stop: 01/24/20 13:53 Morphine Sulfate (Morphine) 2 mg IVPUSH Q4H PRN PRN Reason: Pain (severe 7-10) Last Admin: 01/23/20 21:18 Dose: 2 mg - Exam General: Alert, Oriented Lungs: Clear to Auscultation, Normal Respiratory Effort Cardiovascular: Regular Rate, Regular Rhythm GI/Abdominal Exam: Normal Bowel Sounds, Soft, Non-Tender, No Distention Extremities: Non-Tender, No Pedal Edema Skin: Warm, Dry, Intact Neurological: No New Focal Deficit Sepsis Event Note - Evaluation Sepsis Screening Result: No Definite Risk - Focused Exam Vital Signs: Vital Signs Temp Pulse Resp BP Pulse Ox 01/25/20 09:34 36.7 C 81 18 122/88 98 01/25/20 04:00 37.1 C 97 16 126/93 H 97 01/25/20 00:00 89 16 117/81 96 Date Exam was Performed: 01/25/20 Time Exam was Performed: 10:45 - Problem List Review Problem List Initiated/Reviewed/Updated: Yes - My Orders Last 24 Hours: My Active Orders 01/25/20 00:42 Loperamide [Imodium] 2 mg PO Q4H PRN 01/25/20 10:44 Calcium Gluconate 1 gm Sodium Chloride 0.9% [Normal Saline] 50 ml IV NOW Potassium Chloride [Klor-Con M20] 40 meq PO ONETIME ONE 01/25/20 12:00 Phosphorus #1 [Neutra-Phos] 250 mg PO QID 01/25/20 Lunch Full Liquid Diet [DIET] - Plan Plan:: This 34 year old female admitted for acute alcoholic hepatitis and pancreatitis Pancreatitis: pain improving, advance to full liquid diet Alcohol withdrawal: continue ativan prn CIWAA protocol Hypokalemia/hypophosphatemia/hypocalemia: replacing electrolytes Alcoholic hepatitis: LFTs improving
[2020-01-25] MEDS: Phosphorus #1 250 MG Tab PO SCH ×2 (11:56→17:23)
[2020-01-25] MEDS: Pantoprazole 40 MG Vial IV SCH (13:31)
[2020-01-25] MEDS: Melatonin 3 MG Tab PO SCH (21:00)
[2020-01-26] MEDS: Phosphorus #1 250 MG Tab PO SCH ×2 (00:07→05:25)
[2020-01-26] MEDS: LORazepam 2 MG/ML SDV IVPUSH PRN (01:47)
[2020-01-26] MEDS: Dextrose 5%-0.9% NaCl 1,000 ML IV SCH (05:38)
[2020-01-26 06:49] LABS: BLOOD UREA NITROGEN,BUN 2 mg/dL (7.0-18.0); CARBON DIOXIDE,CO2 24.7 mmol/L (21.0-32.0); CHLORIDE,CL 110 mmol/L (98-107); GLUCOSE RANDOM 96 mg/dL (74-106); POTASSIUM,K 3.3 mmol/L (3.5-5.1); SODIUM,NA 143 mmol/L (136-145)
[2020-01-26] MEDS: Sodium Chloride 0.9% 1,000 ML IV SCH (07:47)
[2020-01-26] MEDS ORDERED: Magnesium Sulfate/Water 2 GM in Premix Bag 1 BAG IV ONE (08:02)
[2020-01-26] MEDS ORDERED: Potassium Chloride 20 MEQ Tab.ER PO ONE (08:02)
[2020-01-26] MEDS: Folic Acid 50 MG/10 ML MDV SUBCUT SCH (08:29)
--- NOTE | 2020-01-26 09:13 | PCM.DCSUM1 ---
Discharge Summary - Discharge Data Discharge Date: 01/26/20 Discharge Disposition: Home, Self-Care 01 Condition: Stable - Referral to Home Health Primary Care Physician: [facility] - Patient Summary/Data Hospital Course: This 34-year-old female with PMH of alcohol abuse, pancreatitis, PTSD and Gastric bypass presents who was admitted for acute alcoholic hepatitis and pancreatitis. She reported to the ED after being instructed to do so by [facility] PCP at the [facility] She had been noticing frequent bruising, abdominal pain and nausea. She reports that she has been drinking 2 to 3 days bottles of wine daily for the last month. In the ED she was found to have thrombocytopenia, 124 ,000 hgb 12.4. INR 1.3, Na 142, K+ 4.2 Bilirubin 1.6, AST 718, ALT 249, alk phos 138 and lipase 736. Tylenol level under 2.0. She was treated with IV fluids and bowel rest. She did have withdrawal symptoms which were managed with CIWAA protocol with prn Ativan. Her diet was advance when she had improvement in her abdominal pain. Today she is requesting discharge. She was discharged home to have follow up with the [facility]. She plans on attending AA as well as counseling through the [facility]. - Patient Instructions Diet: Usual Diet as Tolerated Notify Provider of: Fever, Increased Pain, Nausea and/or Vomiting - Discharge Plan Home Medications: Home Meds Acamprosate Calcium 333 mg PO ASDIRECTED 01/23/20 [History] busPIRone [Buspar] 15 mg PO BID 01/23/20 [History] ondansetron HCL [Ondansetron HCl] 4 mg PO Q6HR PRN 01/23/20 [History] Patient Handouts: Alcohol Abuse and Nutrition Referrals: [facility] [Outside] - 01/31/20 8:30 am - Discharge Summary/Plan Comment DC Time >30 min.: No - Patient Data Vitals - Most Recent: Last Vital Signs Temp 37.1 C 01/26/20 07:45 Pulse 84 01/26/20 07:45 Resp 14 01/26/20 07:45 BP 134/88 01/26/20 07:45 Pulse Ox 98 01/26/20 07:45 Weight - Most Recent: 71.8 kg I&O - Last 24 hours: Intake & Output 01/25/20 01/26/20 01/26/20 22:59 06:59 14:59 Intake Total 5705 3998 50 Output Total 7317 3100 Balance 3203 898 50 Lab Results - Last 24 hrs: Laboratory Results - last 24 hr 01/25/20 01/25/20 01/25/20 Range/Units 10:05 16:16 23:43 WBC (4.0-11.0) K/uL RBC (4.30-5.90) M/uL Hgb (12.0-16.0) g/dL Hct (36.0-46.0) % MCV (80.0-98.0) fL MCH (27.0-32.0) pg MCHC (31.0-37.0) g/dL RDW Std Deviation (28.0-62.0) fl RDW Coeff of Yousuf (11.0-15.0) % Plt Count (150-400) K/uL MPV (7.40-12.00) fL Neut % (Auto) (48.0-80.0) % Lymph % (Auto) (16.0-40.0) % [place] % (Auto) (0.0-15.0) % Eos % (Auto) (0.0-7.0) % Baso % (Auto) (0.0-1.5) % Neut # (Auto) (1.4-5.7) K/uL Lymph # (Auto) (0.6-2.4) K/uL [place] # (Auto) (0.0-0.8) K/uL Eos # (Auto) (0.0-0.7) K/uL Baso # (Auto) (0.0-0.1) K/uL Nucleated RBC % /100WBC Nucleated RBCs # K/uL INR Sodium (136-145) mmol/L Potassium (3.5-5.1) mmol/L Chloride (98-107) mmol/L Carbon Dioxide (21.0-32.0) mmol/L BUN (7.0-18.0) mg/dL Creatinine (0.6-1.0) mg/dL Est Cr Clr Drug Dosing mL/min Estimated GFR (MDRD) ml/min Glucose (74-106) mg/dL POC Glucose 91 97 84 (60-110) mg/dL Calcium (8.5-10.1) mg/dL Phosphorus (2.6-4.7) mg/dL Magnesium (1.8-2.4) mg/dL Total Bilirubin (0.2-1.0) mg/dL AST (15-37) IU/L ALT (14-63) IU/L Alkaline Phosphatase (46-116) U/L Total Protein (6.4-8.2) g/dL Albumin (3.4-5.0) g/dL Globulin (2.6-4.0) g/dL Albumin/Globulin Ratio (0.9-1.6) 01/26/20 01/26/20 01/26/20 Range/Units 06:07 06:07 06:07 WBC 2.95 L (4.0-11.0) K/uL RBC 2.87 L (4.30-5.90) M/uL Hgb 9.6 L (12.0-16.0) g/dL Hct 30.1 L (36.0-46.0) % MCV 104.9 H (80.0-98.0) fL MCH 33.4 H (27.0-32.0) pg MCHC 31.9 (31.0-37.0) g/dL RDW Std Deviation 57.5 (28.0-62.0) fl RDW Coeff of Yousuf 15 (11.0-15.0) % Plt Count 85 L (150-400) K/uL MPV 11.00 (7.40-12.00) fL Neut % (Auto) 48.6 (48.0-80.0) % Lymph % (Auto) 34.2 (16.0-40.0) % [place] % (Auto) 12.5 (0.0-15.0) % Eos % (Auto) 3.7 (0.0-7.0) % Baso % (Auto) 1.0 (0.0-1.5) % Neut # (Auto) 1.4 (1.4-5.7) K/uL Lymph # (Auto) 1.0 (0.6-2.4) K/uL [place] # (Auto) 0.4 (0.0-0.8) K/uL Eos # (Auto) 0.1 (0.0-0.7) K/uL Baso # (Auto) 0.0 (0.0-0.1) K/uL Nucleated RBC % 0.0 /100WBC Nucleated RBCs # 0 K/uL INR 1.23 Sodium 143 (136-145) mmol/L Potassium 3.3 L (3.5-5.1) mmol/L Chloride 110 H (98-107) mmol/L Carbon Dioxide 24.7 (21.0-32.0) mmol/L BUN 2 L (7.0-18.0) mg/dL Creatinine 0.6 (0.6-1.0) mg/dL Est Cr Clr Drug Dosing 134.98 mL/min Estimated GFR (MDRD) > 60.0 ml/min Glucose 96 (74-106) mg/dL POC Glucose (60-110) mg/dL Calcium 7.3 L (8.5-10.1) mg/dL Phosphorus 2.9 (2.6-4.7) mg/dL Magnesium 1.5 L (1.8-2.4) mg/dL Total Bilirubin 1.5 H (0.2-1.0) mg/dL AST 189 H (15-37) IU/L ALT 127 H (14-63) IU/L Alkaline Phosphatase 99 (46-116) U/L Total Protein 5.5 L (6.4-8.2) g/dL Albumin 2.7 L (3.4-5.0) g/dL Globulin 2.8 (2.6-4.0) g/dL Albumin/Globulin Ratio 1.0 (0.9-1.6) Med Orders - Current: Current Medications Folic Acid (Folic Acid) 1 mg SUBCUT DAILY [facility] Last Admin: 01/26/20 08:29 Dose: 1 mg Thiamine HCl 100 mg/ Sodium (Chloride) 101 mls @ 202 mls/hr IV DAILY [facility] Last Admin: 01/25/20 10:38 Dose: 202 mls/hr Dextrose/Sodium Chloride (Dextrose 5%-Normal Saline) 1,000 mls @ 50 mls/hr IV Q20H [facility] Last Admin: 01/26/20 05:38 Dose: Not Given Sodium Chloride (Normal Saline) 1,000 mls @ 125 mls/hr IV Q8H [facility] Last Admin: 01/26/20 07:47 Dose: 125 mls/hr Ibuprofen (Motrin) 400 mg PO Q8H PRN PRN Reason: Headache Last Admin: 01/24/20 15:59 Dose: 400 mg Loperamide HCl (Imodium) 2 mg PO Q4H PRN PRN Reason: Diarrhea Last Admin: 01/25/20 00:50 Dose: 2 mg Lorazepam (Ativan) 0 mg IVPUSH Q4H PRN; Protocol PRN Reason: CIWAA Last Admin: 01/26/20 01:47 Dose: 1 mg Melatonin (Melatonin) 6 mg PO BEDTIME [facility] Last Admin: 01/25/20 21:00 Dose: 6 mg Ondansetron HCl (Zofran) 4 mg IVPUSH Q4H PRN PRN Reason: Nausea Last Admin: 01/23/20 21:18 Dose: 4 mg Oxycodone HCl (Oxycodone) 5 mg PO Q4H PRN PRN Reason: Pain Pantoprazole Sodium (Protonix Iv) 40 mg IV Q24H [facility] Last Admin: 01/25/20 13:31 Dose: 40 mg Sodium Phosphate (Neutra-Phos) 250 mg PO QID [facility] Last Admin: 01/26/20 05:25 Dose: 250 mg Discontinued Medications Sodium Chloride (Normal Saline) 1,000 mls @ 999 mls/hr IV STAT ONE Stop: 01/23/20 12:47 Last Admin: 01/23/20 12:00 Dose: 999 mls/hr Sodium Chloride (Normal Saline) 1,000 mls @ 999 mls/hr IV STAT ONE Stop: 01/23/20 12:48 Last Admin: 01/23/20 13:32 Dose: Not Given Multivitamins/Minerals 10 ml/Thiamine HCl 100 mg/ Folic Acid 1 mg/ Sodium Chloride 1,011.2 mls @ 150 mls/hr IV ONETIME ONE Stop: 01/23/20 19:39 Last Admin: 01/23/20 14:07 Dose: 150 mls/hr Magnesium Sulfate 4 gm/ Premix 100 mls @ 33.333 mls/hr IV ONETIME ONE Stop: 01/24/20 10:52 Last Admin: 01/24/20 08:22 Dose: 33.333 mls/hr Potassium Phosphate 15 mmole/ (Sodium Chloride) 255 mls @ 63.75 mls/hr IV NOW ONE Stop: 01/24/20 12:44 Last Admin: 01/24/20 12:49 Dose: 63.75 mls/hr Calcium Gluconate 1 gm/ Sodium (Chloride) 60 mls @ 120 mls/hr IV NOW ONE Stop: 01/25/20 11:13 Last Admin: 01/25/20 11:59 Dose: 120 mls/hr Magnesium Sulfate 2 gm/ Premix 50 mls @ 50 mls/hr IV ONETIME ONE Stop: 01/26/20 09:01 Last Admin: 01/26/20 08:30 Dose: 50 mls/hr Morphine Sulfate (Morphine) 2 mg IVPUSH Q2H PRN PRN Reason: Pain (severe 7-10) Stop: 01/24/20 13:53 Morphine Sulfate (Morphine) 2 mg IVPUSH Q4H PRN PRN Reason: Pain (severe 7-10) Last Admin: 01/23/20 21:18 Dose: 2 mg Potassium Chloride (Klor-Con M20) 40 meq PO ONETIME ONE Stop: 01/25/20 10:45 Last Admin: 01/25/20 11:56 Dose: 40 meq Potassium Chloride (Klor-Con M20) 40 meq PO ONETIME ONE Stop: 01/26/20 08:03 Last Admin: 01/26/20 08:29 Dose: 40 meq
[2020-01-26] MEDS: Thiamine 100 MG in Sodium Chloride 0.9% 100 ML IV SCH (10:13)
== END 2020-01-26 10:20 | disposition home or self-care (01) | DRG 432 ==
LOC: MW.ED 11:02 → MW.MS 13:19 → OBSVTOIN 14:25 → MW.MS 14:47
PROVIDERS: ADMIT Internal Medicine; ATTEND Internal Medicine
DX: K70.10 Alcoholic hepatitis without ascites (principal); K85.90 Acute pancreatitis without necrosis or infection, unspecified; F10.239 Alcohol dependence with withdrawal, unspecified; D69.6 Thrombocytopenia, unspecified; Z79.899 Other long term (current) drug therapy; F43.10 Post-traumatic stress disorder, unspecified; Z98.84 Bariatric surgery status; F17.210 Nicotine dependence, cigarettes, uncomplicated; E87.6 Hypokalemia; E83.39 Other disorders of phosphorus metabolism; E83.51 Hypocalcemia; Z88.8 Allergy status to other drugs, medicaments and biological substances; Z90.49 Acquired absence of other specified parts of digestive tract
CPT/HCPCS: 36415; 76705; 76705-26; 80053; 80061; 80074; 80307; 81001; 82962; 83690; 83735; 84100; 85025; 85610; 96361; 96365; 99284; 99285-25; A9270-GY; C9113; J0610; J2060; J2270; J2405; J3411; J3475; J7030; J7042; J7050

== ENCOUNTER 2020-08-14 09:51 | Emergency (ER) | payer OTHER, BC ==
[2020-08-14] MEDS ORDERED: chlordiazePOXIDE 25 MG Cap PO ONE (10:12)
--- NOTE | 2020-08-14 10:22 | EDM.PDOC ---
ED HPI GENERAL MEDICAL PROBLEM - General Chief Complaint: Respiratory Problem Stated Complaint: SOB NO TASTE/SMELL Time Seen by Provider: 08/14/20 09:57 Source of Information: Reports: Patient History Limitations: Reports: No Limitations - History of Present Illness INITIAL COMMENTS - FREE TEXT/NARRATIVE: Is a 35-year-old female who presents today for shortness of breath and chest pain. Patient has had time she wakes up in the morning her heart is beating fast. Patient also reports she has been drinking heavily for the past 2 weeks after being sober for few years. Patient last had a drink at 3 AM. Patient denies any nausea vomiting fever chills. Patient also has concerns for possible Covid. Patient also reports that she took a trip to [place] within the past 2 weeks. - Related Data Allergies Allergy/AdvReac Type Severity Reaction Status Date / Time benzoyl peroxide Allergy Hives Verified 08/14/20 10:02 Home Meds: Home Meds busPIRone [Buspar] 15 mg PO BID 01/23/20 [History] Past Medical History Cardiovascular History: Reports: None Respiratory History: Reports: None Gastrointestinal History: Reports: Pancreatitis [employer]CRETE SC[employer]OR History: Reports: , Spontaneous Musculoskeletal History: Reports: None Neurological History: Reports: None Psychiatric History: Reports: Anxiety, Panic Attack Endocrine/Metabolic History: Reports: None - Infectious Disease History Infectious Disease History: Reports: Chicken Pox - Past Surgical History HEENT Surgical History: Reports: LASIK GI Surgical History: Reports: Cholecystectomy, Other (See Below) Other GI Surgeries/Procedures: Gastric bypass Social & Family History - Family History Family Medical History: No Pertinent Family History - Tobacco Use Tobacco Use Status *Q: Current Every Day Tobacco User Years of Tobacco use: 15 Packs/Tins Daily: 0 - Caffeine Use Caffeine Use: Reports: Coffee - Recreational Drug Use Recreational Drug Use: No - Living Situation & Occupation Living situation: Reports: Occupation: Employed ED ROS GENERAL - Review of Systems Review Of Systems: See Below Constitutional: Reports: No Symptoms HEENT: Reports: No Symptoms Respiratory: Reports: Shortness of Breath Cardiovascular: Reports: Chest Pain Endocrine: Reports: No Symptoms GI/Abdominal: Reports: No Symptoms : Reports: No Symptoms Musculoskeletal: Reports: No Symptoms Skin: Reports: No Symptoms Neurological: Reports: No Symptoms Psychiatric: Reports: No Symptoms Hematologic/Lymphatic: Reports: No Symptoms Immunologic: Reports: No Symptoms ED EXAM, GENERAL - Physical Exam Exam: See Below Exam Limited By: No Limitations General Appearance: Alert, No Apparent Distress Eye Exam: Bilateral Eye: EOMI, PERRL Neck: Normal Inspection Respiratory/Chest: No Respiratory Distress, Lungs Clear Cardiovascular: Regular Rate, Rhythm GI/Abdominal: Normal Bowel Sounds, Soft, Non-Tender Back Exam: Normal Inspection Extremities: Normal Inspection, Normal Range of Motion Neurological: Alert, Oriented, CN II-XII Intact, Normal Cognition, Normal Gait #1 Interpretation EKG Date: 08/14/20 Time: 10:22 Rhythm: Other (sinus tachy) Rate (Beats/Min): 101 ST-T: Normal Course - Vital Signs Last Recorded V/S: Last Vital Signs Temp 96.7 F L 08/14/20 10:03 Pulse 138 H 08/14/20 10:03 Resp 19 08/14/20 10:03 BP 129/93 H 08/14/20 10:03 Pulse Ox 95 08/14/20 10:03 - Orders/Labs/Meds Orders: Active Orders 24 hr Category Date Time Status EKG Documentation Completion [RC] STAT Care 08/14/20 10:11 Active Labs: Laboratory Tests 08/14/20 08/14/20 08/14/20 Range/Units 10:06 10:06 10:06 WBC 9.79 (4.0-11.0) K/uL RBC 4.09 L (4.30-5.90) M/uL Hgb 12.2 (12.0-16.0) g/dL Hct 37.1 (36.0-46.0) % MCV 90.7 (80.0-98.0) fL MCH 29.8 (27.0-32.0) pg MCHC 32.9 (31.0-37.0) g/dL RDW Std Deviation 46.0 (28.0-62.0) fl RDW Coeff of Yousuf 14 (11.0-15.0) % Plt Count 278 (150-400) K/uL MPV 9.50 (7.40-12.00) fL Neut % (Auto) 69.4 (48.0-80.0) % Lymph % (Auto) 20.1 (16.0-40.0) % [place] % (Auto) 9.1 (0.0-15.0) % Eos % (Auto) 0.6 (0.0-7.0) % Baso % (Auto) 0.8 (0.0-1.5) % Neut # (Auto) 6.8 H (1.4-5.7) K/uL Lymph # (Auto) 2.0 (0.6-2.4) K/uL [place] # (Auto) 0.9 H (0.0-0.8) K/uL Eos # (Auto) 0.1 (0.0-0.7) K/uL Baso # (Auto) 0.1 (0.0-0.1) K/uL Nucleated RBC % 0.6 /100WBC Nucleated RBCs # 0 K/uL D-Dimer, Quantitative 0.66 H (0.0-0.50) mg/L FEU Sodium 137 (136-145) mmol/L Potassium 3.8 (3.5-5.1) mmol/L Chloride 100 (98-107) mmol/L Carbon Dioxide 23.4 (21.0-32.0) mmol/L BUN 9 (7.0-18.0) mg/dL Creatinine 0.8 (0.6-1.0) mg/dL Est Cr Clr Drug Dosing 100.62 mL/min Estimated GFR (MDRD) > 60.0 ml/min Glucose 101 (74-106) mg/dL Calcium 8.6 (8.5-10.1) mg/dL Total Bilirubin 0.6 (0.2-1.0) mg/dL AST 36 (15-37) IU/L ALT 36 (14-63) IU/L Alkaline Phosphatase 75 (46-116) U/L Troponin I < 0.050 (0.000-0.056) ng/mL Total Protein 8.5 H (6.4-8.2) g/dL Albumin 4.4 (3.4-5.0) g/dL Globulin 4.1 H (2.6-4.0) g/dL Albumin/Globulin Ratio 1.1 (0.9-1.6) Urine HCG, Qual (NEGATIVE) Ethyl Alcohol 135 mg/dL SARS-CoV-2 RNA (CR) (NEGATIVE) 08/14/20 08/14/20 Range/Units 10:25 11:05 WBC (4.0-11.0) K/uL RBC (4.30-5.90) M/uL Hgb (12.0-16.0) g/dL Hct (36.0-46.0) % MCV (80.0-98.0) fL MCH (27.0-32.0) pg MCHC (31.0-37.0) g/dL RDW Std Deviation (28.0-62.0) fl RDW Coeff of Yousuf (11.0-15.0) % Plt Count (150-400) K/uL MPV (7.40-12.00) fL Neut % (Auto) (48.0-80.0) % Lymph % (Auto) (16.0-40.0) % [place] % (Auto) (0.0-15.0) % Eos % (Auto) (0.0-7.0) % Baso % (Auto) (0.0-1.5) % Neut # (Auto) (1.4-5.7) K/uL Lymph # (Auto) (0.6-2.4) K/uL [place] # (Auto) (0.0-0.8) K/uL Eos # (Auto) (0.0-0.7) K/uL Baso # (Auto) (0.0-0.1) K/uL Nucleated RBC % /100WBC Nucleated RBCs # K/uL D-Dimer, Quantitative (0.0-0.50) mg/L FEU Sodium (136-145) mmol/L Potassium (3.5-5.1) mmol/L Chloride (98-107) mmol/L Carbon Dioxide (21.0-32.0) mmol/L BUN (7.0-18.0) mg/dL Creatinine (0.6-1.0) mg/dL Est Cr Clr Drug Dosing mL/min Estimated GFR (MDRD) ml/min Glucose (74-106) mg/dL Calcium (8.5-10.1) mg/dL Total Bilirubin (0.2-1.0) mg/dL AST (15-37) IU/L ALT (14-63) IU/L Alkaline Phosphatase (46-116) U/L Troponin I (0.000-0.056) ng/mL Total Protein (6.4-8.2) g/dL Albumin (3.4-5.0) g/dL Globulin (2.6-4.0) g/dL Albumin/Globulin Ratio (0.9-1.6) Urine HCG, Qual NEGATIVE (NEGATIVE) Ethyl Alcohol mg/dL SARS-CoV-2 RNA (CR) NEGATIVE (NEGATIVE) Meds: Medications Discontinued Medications Generic Name Dose Route Start Last Admin Trade Name Freq PRN Reason Stop Dose Admin Chlordiazepoxide HCl 50 mg 08/14/20 10:12 08/14/20 10:19 Librium PO 08/14/20 10:13 50 mg ONETIME ONE Administration Iopamidol 50 ml 08/14/20 12:28 08/14/20 12:28 Isovue Multipack-370 (76%) IVPUSH 08/14/20 12:29 50 ml ONETIME STA Administration - Re-Assessments/Exams Free Text/Narrative Re-Assessment/Exam: 08/14/20 12:[address] CT PE. Patient still slightly tachycardic has some mild tremors but no signs of withdrawal. Patient will be offered detox unclear if patient will continue to drink or not. Patient not seen to be a danger of herself. Patient Covid test also negative. Patient will be discharged home to follow-up primary care physician. Departure - Departure Time of Disposition: 12:54 Disposition: Home, Self-Care 01 Condition: Good Clinical Impression: Tachycardia, ETOH abuse - Discharge Information *PRESCRIPTION DRUG MONITORING PROGRAM REVIEWED*: Not Applicable *COPY OF PRESCRIPTION DRUG MONITORING REPORT IN PATIENT KEV: Not Applicable Instructions: Alcohol Abuse and Dependence Information, Adult Referrals: David Cunningham NP [Primary Care Provider] - Forms: ED Department Discharge Additional Instructions: The following information is given to patients seen in the emergency department who are being discharged to home. This information is to outline your options for follow-up care. We provide all patients seen in our emergency department with a follow-up referral. The need for follow-up, as well as the timing and circumstances, are variable depending upon the specifics of your emergency department visit. If you don't have a primary care physician on staff, we will provide you with a referral. We always advise you to contact your personal physician following an emergency department visit to inform them of the circumstance of the visit and for follow-up with them and/or the need for any referrals to a consulting specialist. The emergency department will also refer you to a specialist when appropriate. This referral assures that you have the opportunity for follow-up care with a specialist. All of these measure are taken in an effort to provide you with optimal care, which includes your follow-up. Under all circumstances we always encourage you to contact your private physician who remains a resource for coordinating your care. When calling for follow-up care, please make the office aware that this follow-up is from your recent emergency room visit. If for any reason you are refused follow-up, please contact the [facility] Emergency Department at and asked to speak to the emergency department charge nurse. Please follow up with your primary care physician. If you do not have a primary care physician, see below: [facility] [address] [place] [id number] [facility] [address] [place] [id number] Please follow-up with your primary care physician as needed. If you have any intense shaking confusions or nausea vomiting please return to the ED. [facility] Sepsis Event Note (ED) - Evaluation Sepsis Screening Result: Possible Sepsis Risk - Focused Exam Vital Signs: Vital Signs Temp Pulse Resp BP Pulse Ox 08/14/20 10:03 96.7 F L 138 H 19 129/93 H 95 - My Orders Last 24 Hours: My Active Orders 08/14/20 10:11 EKG Documentation Completion [RC] STAT - Assessment/Plan Last 24 Hours: My Active Orders 08/14/20 10:11 EKG Documentation Completion [RC] STAT Plan: Patient is a 35-year-old female who presents today for chest pain palpitation and shortness of breath. Patient also heavy drinker and has not had a drink in the past few hours. Concern for PE as patient recently took a trip to [place] and possible alcohol withdrawal. Will obtain labs D-dimer provide Librium.
[2020-08-14 10:43] LABS: BLOOD UREA NITROGEN,BUN 9 mg/dL (7.0-18.0); CARBON DIOXIDE,CO2 23.4 mmol/L (21.0-32.0); CHLORIDE,CL 100 mmol/L (98-107); GLUCOSE RANDOM 101 mg/dL (74-106); POTASSIUM,K 3.8 mmol/L (3.5-5.1); SODIUM,NA 137 mmol/L (136-145)
--- NOTE | 2020-08-14 11:21 | CR ---
INDICATION: Chest pain and tachycardia. TECHNIQUE: Chest 1 view COMPARISON: Chest radiograph 09/04/2019. FINDINGS: No focal consolidation, pleural effusion, or pneumothorax. Normal heart size and pulmonary vascularity. The bones are unremarkable. IMPRESSION: No acute cardiopulmonary findings. Dictated by Karey Ramsey MD @ Aug 14 2020 11:18AM Signed by Dr. Karey Ramsey @ Aug 14 2020 11:19AM
[2020-08-14] MEDS ORDERED: Iopamidol 755 MG/ML 500 ML Multipack Bottle IVPUSH STA (12:28)
--- NOTE | 2020-08-14 12:49 | CT ---
INDICATION: Tachycardia. Elevated D-dimer. TECHNIQUE: CT chest PE was acquired with 50 cc Isovue 370 IV contrast. COMPARISON: None. FINDINGS: Heart and vasculature: Contrast opacification of the pulmonary arterial tree is adequate. No sign of pulmonary embolism. Heart size is normal. Thoracic aorta and pulmonary artery are normal in caliber. Lungs and pleural: No suspicious nodules or infiltrates. No pleural effusions, pleural thickening, or pneumothorax. Lymph nodes/mediastinum: No mediastinal, hilar, or axillary adenopathy. Thyroid gland is normal. Chest wall: No masses. Bilateral breast implants are present. Upper abdomen: Normal. Bones: Unremarkable for age. IMPRESSION: Negative CT of the chest. No pulmonary embolism and the lungs are clear. Please note that all CT scans at this facility use dose modulation, iterative reconstruction, and/or weight-based dosing when appropriate to reduce radiation dose to as low as reasonably achievable. Dictated by Dale Dinero MD @ Aug 14 2020 12:38PM Signed by Dr. Dale Dinero @ Aug 14 2020 12:47PM
== END 2020-08-14 13:13 | disposition home or self-care (01) ==
LOC: MW.ED 09:51
DX: R00.0 Tachycardia, unspecified (principal); F10.10 Alcohol abuse, uncomplicated; F41.9 Anxiety disorder, unspecified; F17.210 Nicotine dependence, cigarettes, uncomplicated; Z79.899 Other long term (current) drug therapy; Z88.8 Allergy status to other drugs, medicaments and biological substances; Y90.6 Blood alcohol level of 120-199 mg/100 ml; Z20.828 Contact with and (suspected) exposure to other viral communicable diseases
CPT/HCPCS: 36415; 71045; 71275; 80053; 80307; 81025; 84484; 85025; 85379; 87635; 93005; 99285; A9270; Q9967; 93010; 99283; U0002

== ENCOUNTER 2020-09-14 22:50 | Emergency (ER) | payer OTHER, BC ==
--- NOTE | 2020-09-14 22:56 | EDM.PDOC ---
ED HPI GENERAL MEDICAL PROBLEM - General Stated Complaint: DETOX Time Seen by Provider: 09/14/20 23:12 Source of Information: Reports: Patient History Limitations: Reports: No Limitations - History of Present Illness INITIAL COMMENTS - FREE TEXT/NARRATIVE: 35-year-old female past medical history PTSD, alcohol abuse presents for requesting alcohol detox. Patient notes many recent stressors. She is str uggled with alcohol addiction in the past but had been sober since January of this year. She notes that her grandfather in July and she started drinking again after this. She also notes that she is in the process of getting a divorce from her and this has been very stressful. She admits to smoking marijuana as well as drinking. She notes that for the last 3 days she has been doing nothing but drinking alcohol to the point that she feels nauseated and has not been eating, has been losing weight. She specifically denies suicidal or homicidal ideations. She has required hospitalization for alcohol detoxification in the past. 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: , Spontaneous Musculoskeletal History: Reports: None Neurological History: Reports: None Psychiatric History: Reports: Anxiety, Panic Attack Endocrine/Metabolic History: Reports: None - Infectious Disease History Infectious Disease History: Reports: Chicken Pox - Past Surgical History HEENT Surgical History: Reports: KAYLEY GI Surgical History: Reports: Cholecystectomy, Other (See Below) Other GI Surgeries/Procedures: Gastric bypass Social & Family History - Family History Family Medical History: No Pertinent Family History - Caffeine Use Caffeine Use: Reports: Coffee - Living Situation & Occupation Living situation: Reports: Occupation: Employed ED ROS GENERAL - Review of Systems Review Of Systems: Comprehensive ROS is negative, except as noted in HPI. ED EXAM, GENERAL - Physical Exam Exam: See Below Exam Limited By: No Limitations General Appearance: Alert, WD/WN, No Apparent Distress, Anxious, Other (Tearful) Throat/Mouth: Normal Voice, No Airway Compromise Head: Atraumatic, Normocephalic Respiratory/Chest: No Respiratory Distress, No Accessory Muscle Use Cardiovascular: Normal Peripheral Pulses, Tachycardia Extremities: Normal Inspection Neurological: Alert Psychiatric: Tearful Skin Exam: Warm, Dry, Intact, Normal Color #1 Interpretation EKG Date: 09/14/20 Time: 23:01 Rhythm: Other (sinus tachycardia) Rate (Beats/Min): 111 [place]: Normal P-Wave: Present QRS: Normal ST-T: Normal QT: Normal OH/PQ Interval: 145 Comparison: NA - No Prior EKG EKG Interpretation Comments: Sinus tachycardia without evidence of ischemia Course - Vital Signs Last Recorded V/S: Last Vital Signs Temp 96.3 F L 09/15/20 00:12 Pulse 104 H 09/15/20 00:12 Resp 16 09/15/20 00:12 BP 127/82 09/15/20 00:12 Pulse Ox 98 09/15/20 00:12 - Orders/Labs/Meds Orders: Active Orders 24 hr Category Date Time Status EKG Documentation Completion [RC] STAT Care 09/14/20 23:08 Active Sodium Chloride 0.9% [Saline Flush] Med 09/14/20 23:08 Active 10 ml FLUSH ASDIRECTED PRN Sodium Chloride 0.9% [Saline Flush] Med 09/14/20 23:08 Active 2.5 ml FLUSH ASDIRECTED PRN Saline Lock Insert [OM.PC] Stat Oth 09/14/20 23:08 Ordered Medication Orders Sodium Chloride (Saline Flush) 10 ml FLUSH ASDIRECTED PRN PRN Reason: Keep Vein Open Last Admin: 09/14/20 23:33 Dose: 10 ml Documented by: REUSCIN Sodium Chloride (Saline Flush) 2.5 ml FLUSH ASDIRECTED PRN PRN Reason: Keep Vein Open Last Admin: 09/14/20 23:33 Dose: 2.5 ml Documented by: REUSCIN Labs: Laboratory Tests 09/14/20 09/14/20 09/14/20 Range/Units 23:20 23:34 23:34 WBC 4.78 (4.0-11.0) K/uL RBC 4.46 (4.30-5.90) M/uL Hgb 13.4 (12.0-16.0) g/dL Hct 41.1 (36.0-46.0) % MCV 92.2 (80.0-98.0) fL MCH 30.0 (27.0-32.0) pg MCHC 32.6 (31.0-37.0) g/dL RDW Std Deviation 50.3 (28.0-62.0) fl RDW Coeff of Yousuf 15 (11.0-15.0) % Plt Count 153 (150-400) K/uL MPV 9.80 (7.40-12.00) fL Neut % (Auto) 59.1 (48.0-80.0) % Lymph % (Auto) 31.2 (16.0-40.0) % Drew % (Auto) 7.9 (0.0-15.0) % Eos % (Auto) 1.0 (0.0-7.0) % Baso % (Auto) 0.8 (0.0-1.5) % Neut # (Auto) 2.8 (1.4-5.7) K/uL Lymph # (Auto) 1.5 (0.6-2.4) K/uL Drew # (Auto) 0.4 (0.0-0.8) K/uL Eos # (Auto) 0.1 (0.0-0.7) K/uL Baso # (Auto) 0.0 (0.0-0.1) K/uL Nucleated RBC % 0.0 /100WBC Nucleated RBCs # 0 K/uL Sodium 138 (136-145) mmol/L Potassium 4.1 (3.5-5.1) mmol/L Chloride 97 L (98-107) mmol/L Carbon Dioxide 25.8 (21.0-32.0) mmol/L BUN 8 (7.0-18.0) mg/dL Creatinine 0.8 (0.6-1.0) mg/dL Est Cr Clr Drug Dosing 100.62 mL/min Estimated GFR (MDRD) > 60.0 ml/min Glucose 100 (74-106) mg/dL Calcium 8.9 (8.5-10.1) mg/dL Total Bilirubin 0.5 (0.2-1.0) mg/dL AST 158 H (15-37) IU/L ALT 102 H (14-63) IU/L Alkaline Phosphatase 115 (46-116) U/L Total Protein 8.7 H (6.4-8.2) g/dL Albumin 4.3 (3.4-5.0) g/dL Globulin 4.4 H (2.6-4.0) g/dL Albumin/Globulin Ratio 1.0 (0.9-1.6) TSH 3rd Generation 1.22 (0.36-3.74) uIU/mL Urine Color Urine Appearance Urine pH (5.0-8.0) Ur Specific Mary Alice (1.001-1.035) Urine Protein (NEGATIVE) mg/dL Urine Glucose (UA) (NEGATIVE) mg/dL Urine Ketones (NEGATIVE) mg/dL Urine Occult Blood (NEGATIVE) Urine Nitrite (NEGATIVE) Urine Bilirubin (NEGATIVE) Urine Urobilinogen (<2.0) EU/dL Ur Leukocyte Esterase (NEGATIVE) Urine RBC (0-2/HPF) Urine WBC (0-5/HPF) Ur Epithelial Cells (NONE-FEW) Urine Bacteria (NEGATIVE) Urine Mucus (NONE-MOD) Urine HCG, Qual (NEGATIVE) Salicylates 4.7 (0-20) mg/dL Urine Opiates Screen (NEGATIVE) Ur Oxycodone Screen (NEGATIVE) Urine Methadone Screen (NEGATIVE) Acetaminophen <2.0 ug/mL Ur Barbiturates Screen (NEGATIVE) Ur Phencyclidine Scrn (NEGATIVE) Ur Amphetamine Screen (NEGATIVE) U Methamphetamines Scrn (NEGATIVE) U Benzodiazepines Scrn (NEGATIVE) U Cocaine Metab Screen (NEGATIVE) U Marijuana (THC) Screen (NEGATIVE) Ethyl Alcohol 381 mg/dL SARS-CoV-2 RNA (CR) NEGATIVE (NEGATIVE) 09/15/20 09/15/20 09/15/20 Range/Units 00:05 00:05 00:05 WBC (4.0-11.0) K/uL RBC (4.30-5.90) M/uL Hgb (12.0-16.0) g/dL Hct (36.0-46.0) % MCV (80.0-98.0) fL MCH (27.0-32.0) pg MCHC (31.0-37.0) g/dL RDW Std Deviation (28.0-62.0) fl RDW Coeff of Yousuf (11.0-15.0) % Plt Count (150-400) K/uL MPV (7.40-12.00) fL Neut % (Auto) (48.0-80.0) % Lymph % (Auto) (16.0-40.0) % Drew % (Auto) (0.0-15.0) % Eos % (Auto) (0.0-7.0) % Baso % (Auto) (0.0-1.5) % Neut # (Auto) (1.4-5.7) K/uL Lymph # (Auto) (0.6-2.4) K/uL Drew # (Auto) (0.0-0.8) K/uL Eos # (Auto) (0.0-0.7) K/uL Baso # (Auto) (0.0-0.1) K/uL Nucleated RBC % /100WBC Nucleated RBCs # K/uL Sodium (136-145) mmol/L Potassium (3.5-5.1) mmol/L Chloride (98-107) mmol/L Carbon Dioxide (21.0-32.0) mmol/L BUN (7.0-18.0) mg/dL Creatinine (0.6-1.0) mg/dL Est Cr Clr Drug Dosing mL/min Estimated GFR (MDRD) ml/min Glucose (74-106) mg/dL Calcium (8.5-10.1) mg/dL Total Bilirubin (0.2-1.0) mg/dL AST (15-37) IU/L ALT (14-63) IU/L Alkaline Phosphatase (46-116) U/L Total Protein (6.4-8.2) g/dL Albumin (3.4-5.0) g/dL Globulin (2.6-4.0) g/dL Albumin/Globulin Ratio (0.9-1.6) TSH 3rd Generation (0.36-3.74) uIU/mL Urine Color YELLOW Urine Appearance HAZY Urine pH 6.0 (5.0-8.0) Ur Specific [place] 1.020 (1.001-1.035) Urine Protein NEGATIVE (NEGATIVE) mg/dL Urine Glucose (UA) NEGATIVE (NEGATIVE) mg/dL Urine Ketones NEGATIVE (NEGATIVE) mg/dL Urine Occult Blood MODERATE H (NEGATIVE) Urine Nitrite NEGATIVE (NEGATIVE) Urine Bilirubin NEGATIVE (NEGATIVE) Urine Urobilinogen 0.2 (<2.0) EU/dL Ur Leukocyte Esterase NEGATIVE (NEGATIVE) Urine RBC 1-3 (0-2/HPF) Urine WBC 0-2 (0-5/HPF) Ur Epithelial Cells FEW (NONE-FEW) Urine Bacteria FEW (NEGATIVE) Urine Mucus LIGHT (NONE-MOD) Urine HCG, Qual NEGATIVE (NEGATIVE) Salicylates (0-20) mg/dL Urine Opiates Screen NEGATIVE (NEGATIVE) Ur Oxycodone Screen NEGATIVE (NEGATIVE) Urine Methadone Screen NEGATIVE (NEGATIVE) Acetaminophen ug/mL Ur Barbiturates Screen NEGATIVE (NEGATIVE) Ur Phencyclidine Scrn NEGATIVE (NEGATIVE) Ur Amphetamine Screen NEGATIVE (NEGATIVE) U Methamphetamines Scrn NEGATIVE (NEGATIVE) U Benzodiazepines Scrn NEGATIVE (NEGATIVE) U Cocaine Metab Screen NEGATIVE (NEGATIVE) U Marijuana (THC) Screen NEGATIVE (NEGATIVE) Ethyl Alcohol mg/dL SARS-CoV-2 RNA (CR) (NEGATIVE) Meds: Medications Generic Name Dose Route Start Last Admin Trade Name Freq PRN Reason Stop Dose Admin Sodium Chloride 10 ml 09/14/20 23:08 09/14/20 23:33 Saline Flush FLUSH 10 ml ASDIRECTED PRN Administration Keep Vein Open Sodium Chloride 2.5 ml 09/14/20 23:08 09/14/20 23:33 Saline Flush FLUSH 2.5 ml ASDIRECTED PRN Administration Keep Vein Open Discontinued Medications Generic Name Dose Route Start Last Admin Trade Name Freq PRN Reason Stop Dose Admin Sodium Chloride 1,000 mls @ 999 mls/hr 09/14/20 23:08 09/14/20 23:34 Normal Saline IV 09/15/20 00:08 999 mls/hr .Bolus ONE Administration Lorazepam 1 mg 09/14/20 23:08 09/14/20 23:41 Ativan IVPUSH 09/14/20 23:09 1 mg ONETIME ONE Administration Ondansetron HCl 4 mg 09/14/20 23:25 09/14/20 23:33 Zofran IVPUSH 09/14/20 23:26 4 mg ONETIME ONE Administration - Re-Assessments/Exams Free Text/Narrative Re-Assessment/Exam: 09/14/20 23:13 We will get psychiatric medical clearance labs and reach out for admission 09/14/20 23:28 CIWA = 14 09/15/20 00:38 Spoke with psychiatrist at [facility] who notes they do have bed availability and will take patient; he requests ED to ED transfer. Will initiate that process now. Patient's COVID is negative; she is medically cleared. 09/15/20 00:50 Patient has been accepted by ER physician Dr. Weller Departure - Departure Time of Disposition: 00:50 Disposition: DC/Tfer to Acute Hospital 02 Condition: Good Clinical Impression: Alcohol abuse - Discharge Information Referrals: PCP,None [Primary Care Provider] - Sepsis Event Note (ED) - Focused Exam Vital Signs: Vital Signs Temp Pulse Resp BP Pulse Ox 09/15/20 00:12 96.3 F L 104 H 16 127/82 98 09/14/20 22:56 97.6 F 115 H 17 158/91 H 96 - My Orders Last 24 Hours: My Active Orders 09/14/20 23:08 EKG Documentation Completion [RC] STAT Sodium Chloride 0.9% [Saline Flush] 10 ml FLUSH ASDIRECTED PRN Sodium Chloride 0.9% [Saline Flush] 2.5 ml FLUSH ASDIRECTED PRN Saline Lock Insert [OM.PC] Stat - Assessment/Plan Last 24 Hours: My Active Orders 09/14/20 23:08 EKG Documentation Completion [RC] STAT Sodium Chloride 0.9% [Saline Flush] 10 ml FLUSH ASDIRECTED PRN Sodium Chloride 0.9% [Saline Flush] 2.5 ml FLUSH ASDIRECTED PRN Saline Lock Insert [OM.PC] Stat
[2020-09-14] MEDS ORDERED: Sodium Chloride 0.9% 10 ML Syringe FLUSH PRN (23:08)
[2020-09-14] MEDS ORDERED: Sodium Chloride 0.9% 1,000 ML IV ONE (23:08)
[2020-09-14] MEDS ORDERED: Sodium Chloride 0.9% 2.5 ML Syringe FLUSH PRN (23:08)
[2020-09-14] MEDS ORDERED: Ondansetron 4 MG/2 ML SDV IVPUSH ONE (23:25)
[2020-09-14] MEDS: LORazepam 2 MG/ML SDV IVPUSH ONE ×2 (23:31→23:41)
[2020-09-15 00:13] LABS: ACETAMINOPHEN <2.0 ug/mL; BLOOD UREA NITROGEN,BUN 8 mg/dL (7.0-18.0); CARBON DIOXIDE,CO2 25.8 mmol/L (21.0-32.0); CHLORIDE,CL 97 mmol/L (98-107); GLUCOSE RANDOM 100 mg/dL (74-106); POTASSIUM,K 4.1 mmol/L (3.5-5.1); SODIUM,NA 138 mmol/L (136-145)
== END 2020-09-15 01:50 ==
LOC: MW.ED 22:50
DX: F10.10 Alcohol abuse, uncomplicated (principal); F41.9 Anxiety disorder, unspecified; R00.0 Tachycardia, unspecified; Y90.8 Blood alcohol level of 240 mg/100 ml or more; Z79.899 Other long term (current) drug therapy; Z88.3 Allergy status to other anti-infective agents; Z20.828 Contact with and (suspected) exposure to other viral communicable diseases
CPT/HCPCS: 36415; 80053; 80305; 80307; 81001; 81025; 84443; 85025; 87635; 93005; 96374; 96375; 99285; J2060; J2405; J7030; U0002

== ENCOUNTER 2024-03-16 22:23 | Emergency (ER) | payer OTHER ==
[2024-03-16] MEDS: Haloperidol Lactate 5 MG/ML SDV IM ONE (22:28)
[2024-03-16 23:12] LABS: BASOPHILS ABSOLUTE AUTO 0.08 K/uL (0.00-0.20); BASOPHILS PERCENT AUTO 0.7 % (0.0-1.0); EOSINOPHILS ABSOLUTE AUTO 0.02 K/uL (0.00-0.45); EOSINOPHILS PERCENT AUTO 0.2 % (0.0-6.0); HEMATOCRIT 37.7 % (37.0-47.0); HEMOGLOBIN 12.5 g/dL (12.0-16.0); IMMATURE GRAN ABSOLUTE AUTO 0.04 K/uL (0.00-0.05); IMMATURE GRAN PERCENT AUTO 0.4 % (0.0-0.4); LYMPHOCYTES ABSOLUTE AUTO 1.49 K/uL (1.00-4.80); LYMPHOCYTES PERCENT AUTO 13.5 % (24.0-44.0); MEAN CORPUSCULAR HGB CONC 33.2 g/dL (32.0-36.0); MEAN CORPUSCULAR VOLUME 90.6 fL (83.0-99.0); MEAN PLATELET VOLUME 9.5 fL (9.4-12.3); MONOCYTES ABSOLUTE AUTO 0.49 K/uL (0.00-0.80); MONOCYTES PERCENT AUTO 4.4 % (0.0-8.0); NEUTROPHILS ABSOLUTE AUTO 8.95 K/uL (1.80-7.70); NEUTROPHILS PERCENT AUTO 80.8 % (41.0-71.0); PLATELET COUNT,PLT 265 K/uL (150-400); RED BLOOD CELL COUNT 4.16 M/uL (4.10-5.30); WHITE BLOOD CELL COUNT,WBC 11.07 K/uL (3.9-11.3)
[2024-03-16 23:33] LABS: A/G RATIO 0.9 (0.9-1.6); ACETAMINOPHEN <2.0 ug/mL; ALANINE AMINOTRANSFERASE,ALT 35 IU/L (14-63); ALBUMIN 3.8 g/dL (3.4-5.0); ALKALINE PHOSPHATASE 65 U/L (46-116); ASPARTATE AMNIOTRANSFERASE,AST 37 IU/L (15-37); BILIRUBIN TOTAL 0.4 mg/dL (0.2-1.0); BLOOD UREA NITROGEN,BUN 8 mg/dL (7.0-18.0); CALCIUM 8.4 mg/dL (8.5-10.1); CARBON DIOXIDE,CO2 17.3 mmol/L (21.0-32.0); CHLORIDE,CL 103 mmol/L (98-107); CREATININE 0.9 mg/dL (0.6-1.0); EST CRCL DRUG DOSING (CG) 79.99 mL/min; GLUCOSE RANDOM 91 mg/dL (74-106); POTASSIUM,K 3.8 mmol/L (3.5-5.1); PROTEIN TOTAL,TP 7.8 g/dL (6.4-8.2); SODIUM,NA 141 mmol/L (136-145)
[2024-03-16 23:34] LABS: ESTIMATED GFR 82 mL/min (>60)
[2024-03-17] MEDS: Melatonin 3 MG Tab PO ONE (02:16)
== END 2024-03-17 02:17 | disposition other institution (70) ==
LOC: MW.ED 22:23
DX: F43.21 Adjustment disorder with depressed mood (principal); R45.851 Suicidal ideations; Z88.8 Allergy status to other drugs, medicaments and biological substances; Z79.899 Other long term (current) drug therapy; Z90.49 Acquired absence of other specified parts of digestive tract; Z75.8 Other problems related to medical facilities and other health care
CPT/HCPCS: 36415; 80053; 80143; 80179; 84703; 85025; 96372; 99285; A9270; J1630